=== PATIENT | male | born 1940 | race Caucasian/White ===

== ENCOUNTER → 2017-07-18 10:25 | Outpatient (CLI) | payer MEDICARE, OTHER, SELFPAY ==
--- NOTE | 2017-07-18 10:44 | XR_ITS ---
XR chest 2V HISTORY: ITS.REASON: COUGH, SOB ORDERING PHYSICIAN: Nela Vidales PATIENT AGE: 76 years COMPARISON: None available FINDINGS: There is borderline cardiomegaly without failure.. The lungs are clear without infiltrates, suspicious nodules, or pleural effusions. There is mild wedging of L1. This is slightly increased compared to the previous lumbar spine film of 03/03/2016. IMPRESSION: 1. Borderline cardiomegaly, no acute finding in the chest. 2. Mild wedging of L1 with loss of height anteriorly of approximately 40%
[2017-07-18 10:56] LABS: Basophils % 0.2 % (0.1-2.0); Eosinophils % 0.5 % (0.1-12.0); Hematocrit 40.5 % (42.0-52.0); Hemoglobin 13.6 g/dL (14.1-18.0); Lymphocytes # 0.7 K/mm3 (0.7-4.5); Lymphocytes % 10.8 K/mm3 (10-50); Mean Corpuscular HGB Conc 33.6 g/dL (31.8-35.4); Mean Corpuscular Hemoglobin 32.2 pg (27.0-31.2); Mean Platelet Volume 8.8 fl (7.4-10.4); Monocytes # 0.7 K/mm3 (0.1-1.0); Monocytes % 10.1 % (1.7-9.3); Neutrophils # 5.3 K/mm3 (1.8-7.8); Neutrophils % 78.3 % (37.0-80.0); Platelet Count 160 K/mm3 (142-424); Red Blood Count 4.22 M/mm3 (4.60-6.20); Red Cell Distribution Width 13.2 % (11.5-17.5); White Blood Count 6.7 K/mm3 (4.8-10.8)
[2017-07-18 12:34] LABS: Anion Gap 15.1 mEq/L (5-15); Blood Urea Nitrogen 18 mg/dL (7-18); Carbon Dioxide 23 mmol/L (21.0-32.0); Chloride 99 mmol/L (98-107); Creatinine,Serum 1.16 mg/dL (0.70-1.30); Estimated Glomerular Filt Rate 61 ml/min (>60); GFR (African American) 74 ML/MIN (>60); Glucose 98 mg/dL (74-106); Potassium 4.1 mmoL/L (3.5-5.1); Sodium 133 mmol/L (136-145)
== END ==
PROVIDERS: PCP Nurse Practitioner Family; Visit Provider Nurse Practitioner Family
DX: R05 Cough (principal); R06.02 Shortness of breath
CPT/HCPCS: 36415; 71046; 80048; 85025

== ENCOUNTER 2018-01-24 12:42 | Inpatient (IN) ==
[2018-01-24 13:12] LABS: Basophils % 0.2 % (0.1-2.0); Eosinophils % 0.5 % (0.1-12.0); Hematocrit 43.9 % (42.0-52.0); Hemoglobin 14.2 g/dL (14.1-18.0); Lymphocytes # 1.1 K/mm3 (0.7-4.5); Lymphocytes % 16.4 K/mm3 (10-50); Mean Corpuscular HGB Conc 32.4 g/dL (31.8-35.4); Mean Corpuscular Hemoglobin 31.2 pg (27.0-31.2); Mean Corpuscular Volume 96.3 fl (80-94); Monocytes # 0.6 K/mm3 (0.1-1.0); Monocytes % 8.6 % (1.7-9.3); Neutrophils # 5.1 K/mm3 (1.8-7.8); Neutrophils % 74.3 % (37.0-80.0); Platelet Count 225 K/mm3 (142-424); Red Blood Count 4.56 M/mm3 (4.60-6.20); Red Cell Distribution Width 13.1 % (11.5-17.5); White Blood Count 6.9 K/mm3 (4.8-10.8)
[2018-01-24 13:15] LABS: Calcium 9.5 mg/dL (8.5-10.1)
--- NOTE | 2018-01-24 15:37 | Consult Report ---
History of Present Illness Consult date: 01/24/18 Requesting physician: Lowell Dyer Chief complaint: cold left leg, pain in left leg Additional Medical History:: 1. a.fib A. On Xarelto therapy 2. Insufficient database of medical history. History of present illness: 77 yo WM seen in Dr. Dyer's office with 24 hr history of left leg pain and cold left leg. Pt sent urgently to the cardiac laboratory specialist for angiogram and possible intervention. History of A. fib for which he has been on Xarelto and bystolic. Denies any chest pains. [facility] History Medical History: Reports:: Atrial Fibrillation Denies:: Diabetes Mellitus Type 1, Diabetes Mellitus Type 2, Seizures - *Social History Alcohol Intake: never Occupational Status: retired Housing: house Household Members: spouse - Psychiatric History Expresses thoughts of harming self/others: None Suicide Plan Description: No Plan Meds Home Medications Medication Instructions Recorded Confirmed Type Nebivolol HCl [Bystolic] 5 mg PO DAILY 01/24/18 01/24/18 History Rivaroxaban [Xarelto] 20 mg PO DAILY 01/24/18 01/24/18 History Allergies Allergy/AdvReac Type Severity Reaction Status Date / Time No Known Allergies Allergy Verified 01/24/18 12:42 Review of Systems - *Cardiovascular Denies chest pain - *Respiratory Denies shortness of breath - *Gastrointestinal Denies abdominal pain Exam Vital signs and Labs for Last 24 Hours: Pulse BP Pulse Ox 60 133/81 92 L 01/24/18 13:16 01/24/18 13:16 01/24/18 13:16 Laboratory Results - last 24 hr 01/24/18 13:00: WBC 6.9, RBC 4.56 L, Hgb 14.2, Hct 43.9, MCV 96.3 H, MCH 31.2, MCHC 32.4, RDW 13.1, Plt Count 225, MPV 7.0 L, Neut % (Auto) 74.3, Lymph % (Auto ) 16.4, [place] % (Auto) 8.6, Eos % (Auto) 0.5, Baso % (Auto) 0.2, Neut # (Auto) 5.1, Lymph # (Auto) 1.1, [place] # (Auto) 0.6, Eos # (Auto) 0.0, Baso # (Auto) 0.0 01/24/18 13:00: Sodium 141, Potassium 4.0, Chloride 106, Carbon Dioxide 26, Anion Gap 13.0, BUN 10, Creatinine 0.95, Estimated Creat Clear 64, Estimated GFR 77, Est GFR ( Amer) 93, Glucose 110 H, Calcium 9.5 I & O for Last 24 hours: Intake & Output 01/22/18 01/23/18 01/24/18 01/25/18 11:59 11:59 11:59 11:59 Weight 189 lb - *Routine Neck Exam Absent: JVD - *Routine Respiratory Exam Present: rhonchi - *Routine Cardiovascular Exam Present: irregularly irregular - *Routine Extremities Exam Present: extremity cold to touch. Absent: edema Assessment and Plan (1) Acute leg pain Current visit: Yes Status: Acute Category: Medical Code(s): M79.606 - Pain in leg, unspecified (2) PAD (peripheral artery disease) Current visit: Yes Status: Acute Category: Medical Code(s): I73.9 - Peripheral vascular disease, unspecified (3) Atrial fibrillation Current visit: Yes Status: Acute Category: Medical Code(s): I48.91 - Unspecified atrial fibrillation - Assessment and plan all Dx Assessment and Plan for all problems:: 1. Pt to have urgent lower extremity angiogram with possible intervention. 2. Further recommendations to follow.
[2018-01-24 18:02] LABS: INR 1.36 (0.9-1.1); Prothrombin Time 13.9 seconds (9.4-11.8)
[2018-01-24 18:10] LABS: Activated Partial Thrombo Time 61.4 seconds (23.6-34.0)
[2018-01-24 20:07] LABS: Microscopic, Urine URINE MICROSCOPIC (MICROSCOPIC)
[2018-01-24 20:10] LABS: Appearance,Urine CLEAR (Clear); Bilirubin,Urine Negative (Negative); Blood, Urine 2+ (Negative); Color,Urine YELLOW (Yellow); Glucose,Urine (UA) Negative (Negative); Ketones,Urine Negative (Negative); Leukocyte Esterase,Urine Negative (Negative); PH,Urine 5.5 (5.0-8.5); Protein,Urine Negative (Negative); Urobilinogen,Urine 0.2 EU/dl (0.2)
[2018-01-24 20:35] LABS: Bacteria,Urine Trace /lpf; Mucus,Urine 1+ /lpf; Squamous Epithelial Cell,Urine Occasional #/hpf (0-5)
[2018-01-25 06:05] LABS: Basophils % 0.3 % (0.1-2.0); Eosinophils % 0.2 % (0.1-12.0); Hematocrit 29.1 % (42.0-52.0); Lymphocytes # 1.4 K/mm3 (0.7-4.5); Lymphocytes % 17.4 K/mm3 (10-50); Mean Corpuscular HGB Conc 32.7 g/dL (31.8-35.4); Mean Corpuscular Hemoglobin 31.9 pg (27.0-31.2); Mean Corpuscular Volume 97.7 fl (80-94); Mean Platelet Volume 7.4 fl (7.4-10.4); Monocytes # 0.8 K/mm3 (0.1-1.0); Neutrophils # 5.6 K/mm3 (1.8-7.8); Neutrophils % 72.1 % (37.0-80.0); Platelet Count 215 K/mm3 (142-424); Red Blood Count 2.98 M/mm3 (4.60-6.20); Red Cell Distribution Width 13.3 % (11.5-17.5); White Blood Count 7.8 K/mm3 (4.8-10.8)
[2018-01-25 06:11] LABS: INR 1.16 (0.9-1.1); Prothrombin Time 11.9 seconds (9.4-11.8)
[2018-01-25 06:17] LABS: Anion Gap 10.9 mEq/L (5-15); Hemoglobin 9.5 g/dL (14.1-18.0); Potassium 3.9 mmoL/L (3.5-5.1)
[2018-01-25 06:26] LABS: Calcium 8.2 mg/dL (8.5-10.1)
--- NOTE | 2018-01-25 08:03 | Pharmacy Consult Notes ---
[facility] Pharmacy VTE Monitoring - Patient Demographics Admission date: 01/24/18 Report Date: 01/25/18 Time: 08:02 Allergies/Adverse Reactions: Patient Allergies No Known Allergies Allergy (Verified 01/24/18 12:42) Height: 1.78 m Weight: 84.453 kg Patient Problems: Current Active Problems PAD (peripheral artery disease) (Acute) Atrial fibrillation (Acute) Acute leg pain (Acute) - VTE Risk Labs: VTE Related Lab Results Hgb 9.5 g/dL (14.1-18.0) L D 01/25/18 05:10 Hct 29.1 % (42.0-52.0) L 01/25/18 05:10 Plt Count 215 K/mm3 (142-424) 01/25/18 05:10 PT 11.9 seconds (9.4-11.8) H 01/25/18 05:10 INR 1.16 (0.9-1.1) H 01/25/18 05:10 APTT 61.4 seconds (23.6-34.0) H* 01/24/18 17:40 BUN 16 mg/dL (7-18) D 01/25/18 05:10 Creatinine 1.03 mg/dL (0.70-1.30) 01/25/18 05:10 Estimated Creat Clear 71 mL/min (0-300) 01/25/18 05:10 Was VTE Risk Assessment Performed: Yes VTE Score: 2 VTE Risk Level: Low Risk Clinical Trial Participant: No - Prophylaxis VTE Prophylaxis Ordered?: Yes Types of VTE Prophylaxis: TEDS Knee High
--- NOTE | 2018-01-25 08:13 | Progress Note ---
Subjective Date: 01/25/18 Time: 08:11 Principal diagnosis: PAD with thrombosis Interval history: 77-year-old white male in bed in no acute distress. States left leg feels much better. Patient is anxious to get his Chirinos catheter removed. He now relates that he stopped taking his Xarelto about 2 weeks ago when he was on a trip to [place] and did not restart it. States he spends multiple hours a day in front of the computer. Denies any chest pain, pressure or tightness or any cardiac history. He was diagnosed with atrial fibrillation several years ago at the time of evaluation for broken back. Xarelto was held last evening due to bleeding from his right femoral incision/ cath insertion. Pressure dressing in place. Patient was given a loading dose of Plavix last evening and Integrilin overnight. Exam Vital signs and Labs for Last 24 Hours: Temp Pulse Resp BP Pulse Ox 98.0 F 70 18 94/63 96 01/25/18 07:40 01/25/18 07:40 01/25/18 07:40 01/25/18 07:40 01/25/18 07:40 Laboratory Results - last 24 hr 01/24/18 13:00: WBC 6.9, RBC 4.56 L, Hgb 14.2, Hct 43.9, MCV 96.3 H, MCH 31.2, MCHC 32.4, RDW 13.1, Plt Count 225, MPV 7.0 L, Neut % (Auto) 74.3, Lymph % (Auto ) 16.4, [place] % (Auto) 8.6, Eos % (Auto) 0.5, Baso % (Auto) 0.2, Neut # (Auto) 5.1, Lymph # (Auto) 1.1, [place] # (Auto) 0.6, Eos # (Auto) 0.0, Baso # (Auto) 0.0 01/24/18 13:00: Sodium 141, Potassium 4.0, Chloride 106, Carbon Dioxide 26, Anion Gap 13.0, BUN 10, Creatinine 0.95, Estimated Creat Clear 64, Estimated GFR 77, Est GFR ( Amer) 93, Glucose 110 H, Calcium 9.5 01/24/18 13:48: Activated Clotting Time 323 H* 01/24/18 15:05: Activated Clotting Time > 400 H* D 01/24/18 16:45: Urine Color Yellow, Urine Appearance Clear, Urine pH 5.5, Ur Specific [place] 1.010, Urine Protein Negative, Urine Glucose (UA) Negative, Urine Ketones Negative, Urine Blood 2+, Urine Nitrate Negative, Urine Bilirubin Negative, Urine Urobilinogen 0.2, Ur Leukocyte Esterase Negative, Urine RBC None , Urine WBC None, Ur Squamous Epith Cells Occasional, Urine Bacteria Trace, Urine Mucus 1+ 01/24/18 17:40: PT 13.9 H, INR 1.36 H, APTT 61.4 H* 01/25/18 05:10: WBC 7.8, RBC 2.98 L D, Hgb 9.5 L D, Hct 29.1 L, MCV 97.7 H, MCH 31.9 H, MCHC 32.7, RDW 13.3, Plt Count 215, MPV 7.4, Neut % (Auto) 72.1, Lymph % (Auto) 17.4, [place] % (Auto) 10.0 H, Eos % (Auto) 0.2, Baso % (Auto) 0.3, Neut # (Auto) 5.6, Lymph # (Auto) 1.4, [place] # (Auto) 0.8, Eos # (Auto) 0.0, Baso # ( Auto) 0.0 01/25/18 05:10: Sodium 140, Potassium 3.9, Chloride 107, Carbon Dioxide 26, Anion Gap 10.9, BUN 16 D, Creatinine 1.03, Estimated Creat Clear 71, Estimated GFR 70, Est GFR ( Amer) 85, Glucose 117 H, Calcium 8.2 L D 01/25/18 05:10: PT 11.9 H, INR 1.16 H I & O for Last 24 hours: Intake & Output 01/22/18 01/23/18 01/24/18 01/25/18 11:59 11:59 11:59 11:59 Intake Total 1470 / 1470 Output Total 1150 / 1150 Balance 320 / 320 Weight 186 lb 3 oz - *Routine Respiratory Exam Present: CTA bilaterally - *Routine Cardiovascular Exam Present: irregularly irregular - *Routine Extremities Exam Absent: edema Comments: Left leg is warm down to the ankle with no appreciable pulses in the dorsalis pedis or posterior tibial palpation. Progress Note: A&P (1) Acute leg pain Status: Acute Current Visit: Yes (2) PAD (peripheral artery disease) Status: Acute Current Visit: Yes (3) Atrial fibrillation Status: Acute Current Visit: Yes Assessment and Plan for All Diagnoses:: 1. Integrilin drip discontinued this morning. 2. Continue Nitropaste to the left foot and nitro drip. 3. Continue Plavix and will start Xarelto today. 4. Ambulate.
--- NOTE | 2018-01-25 09:37 | History & Physical Report ---
*Admission Date: 01/24/18 *Chief complaint: left leg pain *History of present illness: 77-year-old white male with history of atrial fibrillation and hypertension who came to the office on the day of admission with a 6 hour history of leg pain and significant discomfort without swelling. His reports that he woke up at 1 AM feeling that his leg was tingling, but went back to sleep but when he woke this morning he had significant leg pain and felt like his muscles were hurting. He is able to walk, but came to the office because of his pain. [facility] History I have reviewed the patient's past medical history: Yes Medical History: Reports:: Atrial Fibrillation Denies:: Diabetes Mellitus Type 1, Diabetes Mellitus Type 2, Seizures - *Social History Alcohol Intake: never Occupational Status: retired Housing: house Household Members: spouse - Psychiatric History Expresses thoughts of harming self/others: None Suicide Plan Description: No Plan *Family Hx:: No significant family history Review of Systems - Review of Systems Review of systems:: pertinent systems reviewed and negative unless documented below Meds Home Medications Medication Instructions Recorded Confirmed Type Nebivolol HCl [Bystolic] 5 mg PO DAILY 01/24/18 01/24/18 History Rivaroxaban [Xarelto] 20 mg PO DAILY 01/24/18 01/24/18 History Allergies Allergy/AdvReac Type Severity Reaction Status Date / Time No Known Allergies Allergy Verified 01/24/18 12:42 Exam Vital signs and Labs for Last 24 Hours: Temp Pulse Resp BP Pulse Ox 97.7 F 84 18 124/54 97 01/25/18 08:00 01/25/18 08:36 01/25/18 08:36 01/25/18 08:36 01/25/18 08:36 Laboratory Results - last 24 hr 01/24/18 13:00: WBC 6.9, RBC 4.56 L, Hgb 14.2, Hct 43.9, MCV 96.3 H, MCH 31.2, MCHC 32.4, RDW 13.1, Plt Count 225, MPV 7.0 L, Neut % (Auto) 74.3, Lymph % (Auto ) 16.4, [place] % (Auto) 8.6, Eos % (Auto) 0.5, Baso % (Auto) 0.2, Neut # (Auto) 5.1, Lymph # (Auto) 1.1, [place] # (Auto) 0.6, Eos # (Auto) 0.0, Baso # (Auto) 0.0 01/24/18 13:00: Sodium 141, Potassium 4.0, Chloride 106, Carbon Dioxide 26, Anion Gap 13.0, BUN 10, Creatinine 0.95, Estimated Creat Clear 64, Estimated GFR 77, Est GFR ( Amer) 93, Glucose 110 H, Calcium 9.5 01/24/18 13:48: Activated Clotting Time 323 H* 01/24/18 15:05: Activated Clotting Time > 400 H* D 01/24/18 16:45: Urine Color Yellow, Urine Appearance Clear, Urine pH 5.5, Ur Specific [place] 1.010, Urine Protein Negative, Urine Glucose (UA) Negative, Urine Ketones Negative, Urine Blood 2+, Urine Nitrate Negative, Urine Bilirubin Negative, Urine Urobilinogen 0.2, Ur Leukocyte Esterase Negative, Urine RBC None , Urine WBC None, Ur Squamous Epith Cells Occasional, Urine Bacteria Trace, Urine Mucus 1+ 01/24/18 17:40: PT 13.9 H, INR 1.36 H, APTT 61.4 H* 01/25/18 05:10: WBC 7.8, RBC 2.98 L D, Hgb 9.5 L D, Hct 29.1 L, MCV 97.7 H, MCH 31.9 H, MCHC 32.7, RDW 13.3, Plt Count 215, MPV 7.4, Neut % (Auto) 72.1, Lymph % (Auto) 17.4, [place] % (Auto) 10.0 H, Eos % (Auto) 0.2, Baso % (Auto) 0.3, Neut # (Auto) 5.6, Lymph # (Auto) 1.4, [place] # (Auto) 0.8, Eos # (Auto) 0.0, Baso # ( Auto) 0.0 01/25/18 05:10: Sodium 140, Potassium 3.9, Chloride 107, Carbon Dioxide 26, Anion Gap 10.9, BUN 16 D, Creatinine 1.03, Estimated Creat Clear 71, Estimated GFR 70, Est GFR ( Amer) 85, Glucose 117 H, Calcium 8.2 L D 01/25/18 05:10: PT 11.9 H, INR 1.16 H I & O for Last 24 hours: Intake & Output 01/22/18 01/23/18 01/24/18 01/25/18 11:59 11:59 11:59 11:59 Intake Total 1470 / 1470 Output Total 1150 / 1150 Balance 320 / 320 Weight 186 lb 3 oz Narrative: Patient is pleasant, talkative, oriented 3. Blood pressure and pulse rate is normal but pulse rate is irregularly irregular as previously noted. Lungs are clear. Abdomen soft. Patient has no cranial nerve deficits. Patient noted to have significant pallor, and absent pulse in the left dorsalis pedis and posterior tib area, area of pallor and cold sensation to touch extending up to the knee. H&P: Result - Labs Labs: Short CBC 01/24/18 01/25/18 Range/Units 13:00 05:10 WBC 6.9 7.8 (4.8-10.8) K/mm3 Hgb 14.2 9.5 L D (14.1-18.0) g/dL Hct 43.9 29.1 L (42.0-52.0) % Plt Count 225 215 (142-424) K/mm3 BMP 01/24/18 01/25/18 13:00 05:10 Sodium 141 140 Potassium 4.0 3.9 Chloride 106 107 Carbon Dioxide 26 26 BUN 10 16 D Creatinine 0.95 1.03 Glucose 110 H 117 H Calcium 9.5 8.2 L D Urine 01/24/18 Range/Units 16:45 Urine Color Yellow (Yellow) Urine Appearance Clear (Clear) Urine pH 5.5 (5.0-8.5) Ur Specific [place] 1.010 (1.005-1.030) Urine Protein Negative (Negative) Urine Glucose (UA) Negative (Negative) Assessment and Plan (1) Acute leg pain Current visit: Yes Status: Acute Category: Medical Code(s): M79.606 - Pain in leg, unspecified (2) PAD (peripheral artery disease) Current visit: Yes Status: Acute Category: Medical Code(s): I73.9 - Peripheral vascular disease, unspecified (3) Atrial fibrillation Current visit: Yes Status: Acute Category: Medical Code(s): I48.91 - Unspecified atrial fibrillation - Assessment and plan all Dx Assessment and Plan for all problems:: On further questioning, patient had been off Xarelto for a week, patient urgently sent to catheter based intervention for probable distal arterial disease. Follow-up will be after cath procedure.
--- NOTE | 2018-01-25 14:07 | Cardiology Report ---
PROCEDURE: 2-D M-mode and color Doppler study INDICATIONS FOR THE TEST: Chest pain COPD Heart Murmur Tobacco Smoking Palpitations Fatigue Syncope Edema Hypertension Diabetes Mellitus Rheumatic Fever SOB ZACARIAS Obesity Hyperlipidemia Family History HD Additional History CHRONIC AF,PAD SMALL PERICARDIAL EFFUSION PATIENT INFORMATION HEIGHT:70 WEIGHT:189 GENDER: Male B/P:133/81 2-D/M-MODE INTERPRETATION: 2-D MEASUREMENTS OBSERVED VALUES IN CMS Right Ventricular Dimension (RVDd) 2.7 Interventricular Septum (Thickness)(IVsd) 1.2 Left Ventricular Internal Dimensions(LVIDd) 5.3 Left Ventricular Posterior Wall (Thickness)(LVPWd) 1.1 Aortic Root 3.4 Aortic Cusp Separation 1.3 Left Atrial Dimensions (LAD) 3.9 2D 1. Left atrium is mildly enlarged, left ventricle is normal size, there is mild concentric left ventricular hypertrophy, visually estimated ejection fraction 50%, there appears to be moderate hypokinesis involving the apex. 2. The right atrium is mildly enlarged, right ventricle is normal size and contractility. 3. The aortic valve is thickened and calcified leaflet continue to display mobility. 4. The mitral valve has dense mitral annular calcification, there is no mitral stenosis. 5. The tricuspid valve is grossly normal. 6. No significant pericardial effusion noted. DOPPLER INTERROGATION: 1. The maximum aortic out flow velocity recorded study is 2.4 m/s, resulting in a mean gradient across valve of 13 mmHg consistent with mild aortic stenosis, there is no significant aortic insufficiency present. 2. The mitral inflow velocity within normal range, there is no mitral stenosis. There is mild mitral regurgitation present. 3. There is mild tricuspid regurgitation noted, tricuspid and jet velocity insufficient for calculation of the right ventricular systolic pressure. CONCLUSION: 1. Biatrial enlargement, normal left ventricular size, mild concentric left ventricular hypertrophy, visually estimated ejection fraction 50% with no obvious regional wall motion abnormality, diastolic parameters are inconclusive. 2. Thickened and calcified aortic valve with mean gradient across valve of 15 mmHg represents mild aortic stenosis, there is no significant aortic insufficiency seen. 3. Mild mitral and tricuspid regurgitation 4. No significant pericardial effusion noted.
[2018-01-26 05:44] LABS: Basophils % 0.3 % (0.1-2.0); Eosinophils # 0.1 K/mm3 (0.0-0.4); Eosinophils % 2.1 % (0.1-12.0); Lymphocytes # 1.7 K/mm3 (0.7-4.5); Lymphocytes % 24.2 K/mm3 (10-50); Mean Corpuscular HGB Conc 32.7 g/dL (31.8-35.4); Mean Corpuscular Hemoglobin 31.8 pg (27.0-31.2); Mean Corpuscular Volume 97.2 fl (80-94); Mean Platelet Volume 8.4 fl (7.4-10.4); Monocytes # 0.7 K/mm3 (0.1-1.0); Monocytes % 9.8 % (1.7-9.3); Neutrophils # 4.4 K/mm3 (1.8-7.8); Neutrophils % 63.6 % (37.0-80.0); Platelet Count 179 K/mm3 (142-424); Red Blood Count 2.36 M/mm3 (4.60-6.20); Red Cell Distribution Width 13.1 % (11.5-17.5); White Blood Count 6.9 K/mm3 (4.8-10.8)
[2018-01-26 05:48] LABS: Hemoglobin 7.5 g/dL (14.1-18.0)
[2018-01-26 05:58] LABS: Albumin Level 2.7 gm/dL (3.4-5.0); Anion Gap 12.8 mEq/L (5-15); Bilirubin,Total 0.8 mg/dL (0.2-1.0); Calcium 7.7 mg/dL (8.5-10.1); Globulin 2.7 gm/dl (1.3-3.2); Potassium 3.8 mmoL/L (3.5-5.1); Total Protein,Serum 5.4 gm/dL (6.4-8.2)
--- NOTE | 2018-01-26 08:42 | Progress Note ---
Subjective Date: 01/26/18 Time: 08:38 Principal diagnosis: PAD with thrombosis Interval history: 77-year-old white male in bed in no cute distress. Some lightheadedness and dizziness with position changes. Hemoglobin noted to be 7.5 this a.m. with orders for transfusion already placed. Patient denies any abdominal pain. He still has hematoma around the right femoral insertion site that is unchanged compared to yesterday. Left foot appears warm still with decreased pulses. Patient denies any blood in his bowels or urine. Exam Vital signs and Labs for Last 24 Hours: Temp Pulse Resp BP Pulse Ox 97.9 F 69 16 124/62 100 01/26/18 05:00 01/26/18 06:00 01/26/18 06:00 01/26/18 06:00 01/26/18 06:00 Laboratory Results - last 24 hr 01/26/18 05:25: WBC 6.9, RBC 2.36 L, Hgb 7.5 L*, Hct 23.0 L*, MCV 97.2 H, MCH 31.8 H, MCHC 32.7, RDW 13.1, Plt Count 179, MPV 8.4, Neut % (Auto) 63.6, Lymph % (Auto) 24.2, [place] % (Auto) 9.8 H, Eos % (Auto) 2.1, Baso % (Auto) 0.3, Neut # (Auto) 4.4, Lymph # (Auto) 1.7, [place] # (Auto) 0.7, Eos # (Auto) 0.1, Baso # ( Auto) 0.0 01/26/18 05:25: Sodium 145, Potassium 3.8, Chloride 110 H, Carbon Dioxide 26, Anion Gap 12.8, BUN 14, Creatinine 0.97, Estimated Creat Clear 75, Estimated GFR 75, Est GFR ( Amer) 91, Glucose 99, Calcium 7.7 L, Total Bilirubin 0.8, AST 59 H, ALT 23, Alkaline Phosphatase 52, Total Protein 5.4 L, Albumin 2.7 L, Globulin 2.7, Albumin/Globulin Ratio 1.0 L 01/26/18 07:05: Blood Type B Positive, Crossmatch (AHG) See Detail I & O for Last 24 hours: Intake & Output 01/23/18 01/24/18 01/25/1801/26/18 11:59 11:59 11:59 11:59 Intake Total 1590 / 1590 2641.6 / 2641.6 Output Total 1250 / 1250 700 / 700 Balance 340 / 340 1941.6 / 1941.6 Weight 186 lb 3 oz 192 lb 2 oz - *Routine Neck Exam Absent: JVD, carotid bruit - *Routine Respiratory Exam Present: decreased breath sounds - *Routine Cardiovascular Exam Present: irregularly irregular - *Routine Extremities Exam Present: edema Progress Note: A&P (1) Acute leg pain Status: Acute Current Visit: Yes (2) PAD (peripheral artery disease) Status: Acute Current Visit: Yes (3) Atrial fibrillation Status: Acute Current Visit: Yes Assessment and Plan for All Diagnoses:: Patient is off of nitroglycerin drip and Integrilin. Left leg is warm but still with decreased peripheral pulses. Continue Plavix and Xarelto therapy. Transfusion has been ordered. CT of the abdomen considered for evaluation of atheromatous plaque of the aorta and to evaluate hematoma of the right groin due to decreased hemoglobin.
--- NOTE | 2018-01-26 13:44 | Progress Note ---
Internal Medicine - PN: Subj *Date: 01/26/18 *Time: 13:42 Interval history: Patient examined this morning when he was being taken to CT scan. Has no complaints. No chest pain. No leg pain. Exam Vital signs and Labs for Last 24 Hours: Temp Pulse Resp BP Pulse Ox 97.0 F L 62 20 111/56 95 01/26/18 11:50 01/26/18 12:00 01/26/18 11:50 01/26/18 11:50 01/26/18 11:50 Laboratory Results - last 24 hr 01/26/18 05:25: WBC 6.9, RBC 2.36 L, Hgb 7.5 L*, Hct 23.0 L*, MCV 97.2 H, MCH 31.8 H, MCHC 32.7, RDW 13.1, Plt Count 179, MPV 8.4, Neut % (Auto) 63.6, Lymph % (Auto) 24.2, [place] % (Auto) 9.8 H, Eos % (Auto) 2.1, Baso % (Auto) 0.3, Neut # (Auto) 4.4, Lymph # (Auto) 1.7, [place] # (Auto) 0.7, Eos # (Auto) 0.1, Baso # ( Auto) 0.0 01/26/18 05:25: Sodium 145, Potassium 3.8, Chloride 110 H, Carbon Dioxide 26, Anion Gap 12.8, BUN 14, Creatinine 0.97, Estimated Creat Clear 75, Estimated GFR 75, Est GFR ( Amer) 91, Glucose 99, Calcium 7.7 L, Total Bilirubin 0.8, AST 59 H, ALT 23, Alkaline Phosphatase 52, Total Protein 5.4 L, Albumin 2.7 L, Globulin 2.7, Albumin/Globulin Ratio 1.0 L 01/26/18 07:05: Blood Type B Positive, Antibody Screen Negative, Crossmatch (AHG ) See Detail 01/26/18 08:50: Blood Type Confirm B Positive I & O for Last 24 hours: Intake & Output 01/24/18 01/25/18 01/26/18 01/27/18 11:59 11:59 11:59 11:59 Intake Total 1590 / 1590 2841.6 / 2841.6 350 / 350 Output Total 1250 / 1250 700 / 700 Balance 340 / 340 2141.6 / 2141.6 350 / 350 Weight 186 lb 3 oz 192 lb 2 oz Narrative: Patient is somewhat pale but otherwise in good spirits. Lungs are clear, heart rate irregular. Left leg is warm and well-perfused. Cath site on the right groin looks good. Assessment and Plan (1) Acute leg pain Current visit: Yes Status: Acute Category: Medical Code(s): M79.606 - Pain in leg, unspecified (2) PAD (peripheral artery disease) Current visit: Yes Status: Acute Category: Medical Code(s): I73.9 - Peripheral vascular disease, unspecified (3) Atrial fibrillation Current visit: Yes Status: Acute Category: Medical Code(s): I48.91 - Unspecified atrial fibrillation (4) Thrombosis of left femoral artery Current visit: Yes Status: Acute Category: Medical Code(s): I74.3 - Embolism and thrombosis of arteries of the lower extremities Clinically problem is much better. Radiographic films reviewed personally with training intern. Transfuse as noted given procedure related/chronic blood loss. Check CT scan today to get a good look at the aorta and to evaluate for any retroperitoneal bleeding. Possible discharge tomorrow.
[2018-01-26 17:14] LABS: Hematocrit 27.5 % (42.0-52.0)
[2018-01-26 17:18] LABS: Hemoglobin 9.3 g/dL (14.1-18.0)
[2018-01-27 06:16] LABS: Basophils % 0.4 % (0.1-2.0); Eosinophils # 0.2 K/mm3 (0.0-0.4); Eosinophils % 3.1 % (0.1-12.0); Hematocrit 28.7 % (42.0-52.0); Hemoglobin 9.4 g/dL (14.1-18.0); Lymphocytes # 1.5 K/mm3 (0.7-4.5); Lymphocytes % 23.8 K/mm3 (10-50); Mean Corpuscular HGB Conc 32.6 g/dL (31.8-35.4); Mean Corpuscular Hemoglobin 31.6 pg (27.0-31.2); Mean Corpuscular Volume 97.1 fl (80-94); Mean Platelet Volume 7.4 fl (7.4-10.4); Monocytes # 0.6 K/mm3 (0.1-1.0); Monocytes % 9.6 % (1.7-9.3); Neutrophils # 3.8 K/mm3 (1.8-7.8); Neutrophils % 63.1 % (37.0-80.0); Platelet Count 155 K/mm3 (142-424); Red Blood Count 2.96 M/mm3 (4.60-6.20); Red Cell Distribution Width 14.1 % (11.5-17.5); White Blood Count 6.1 K/mm3 (4.8-10.8)
[2018-01-27 06:46] LABS: Anion Gap 11.7 mEq/L (5-15); Calcium 7.9 mg/dL (8.5-10.1); Potassium 3.7 mmoL/L (3.5-5.1)
--- NOTE | 2018-01-27 07:41 | Discharge Summary ---
General - General Admission date:: 01/24/18 Discharge date: 01/27/18 HPI HPI: 77-year-old white male with history of atrial fibrillation and hypertension who came to the office on the day of admission with a 6 hour history of leg pain and significant discomfort without swelling. His reports that he woke up at 1 AM feeling that his leg was tingling, but went back to sleep but when he woke this morning he had significant leg pain and felt like his muscles were hurting. He is able to walk, but came to the office because of his pain. Hospital Course Hospital Course: Mr. nunez presented with pallor, pain, pulselessness and left lower extremity after stopping his anticoagulation therapy for 2 weeks with a trip to [place]. Found to have critical angiogram. Cardiology consulted for emergent intervention. Stents were placed in the left common femoral artery. Flow restored to left lower extremity. Initially treated with IV antiplatelet therapy with transition to Plavix and continuation of Xarelto. Patient responded well to intervention. Has maintained stable blood flow and perfusion to lower extremities. Cath site in right inguinal region stable with good hemostasis. Patient meeting criteria for discharge home. Discharge with close follow-up with cardiology and primary care Objective Vital signs: Temp Pulse Resp BP Pulse Ox 98.0 F 66 18 133/67 92 L 01/27/18 04:00 01/27/18 04:00 01/27/18 04:00 01/27/18 04:00 01/27/18 04:00 - *Routine HEENT Exam Head: Present: normocephalic, atraumatic Eye: Present: EOMI, PERRL ENT: Present: mucous membranes moist - *Routine Neck Exam Present: supple, full ROM. Absent: JVD, carotid bruit - *Routine Respiratory Exam Present: CTA bilaterally. Absent: prolonged expiratory phase, rales, stridor, wheezes, crackles - *Routine Cardiovascular Exam Present: Normal S1, Normal S2, irregularly irregular. Absent: murmur, gallop, rubs - *Routine Abdominal Exam Present: soft, normoactive bowel sounds. Absent: tenderness - *Routine Rectal Exam Patient deferred: visual exam - *Routine Exam Patient deferred: penile exam Comments: Ecchymoses in right inguinal region at the insertion site for cath procedure. No bleeding. Stable pulses, no thrill. - *Routine Extremities Exam Present: normal capillary refill. Absent: cyanosis, clubbing, edema, calf tenderness Comments: Pulses weak in feet with palpable dorsalis pedis bilaterally, nonpalpable posterior tibialis, feet warm with cap refill less than 3 seconds - *Routine Skin Exam Present: intact, dry. Absent: cyanosis, erythema - *Routine Neurological Exam Present: alert, oriented X3, CN II-XII intact Results Labs on day of discharge: Labs from last 24 hours 01/27/18 01/27/18 01/26/18 05:40 05:40 17:00 WBC 6.1 RBC 2.96 L D Hgb 9.4 L 9.3 L D Hct 28.7 L 27.5 L MCV 97.1 H MCH 31.6 H MCHC 32.6 RDW 14.1 Plt Count 155 MPV 7.4 Neut % (Auto) 63.1 Lymph % (Auto) 23.8 [place] % (Auto) 9.6 H Eos % (Auto) 3.1 Baso % (Auto) 0.4 Neut # (Auto) 3.8 Lymph # (Auto) 1.5 [place] # (Auto) 0.6 Eos # (Auto) 0.2 Baso # (Auto) 0.0 Sodium 145 Potassium 3.7 Chloride 110 H Carbon Dioxide 27 Anion Gap 11.7 BUN 9 D Creatinine 0.80 Estimated Creat Clear 76 Estimated GFR 93 Est GFR ( Amer) 113 D Glucose 84 Calcium 7.9 L Blood Type Blood Type Confirm Antibody Screen Crossmatch ([facility]) 01/26/18 01/26/18 08:50 07:05 WBC RBC Hgb Hct MCV MCH MCHC RDW Plt Count MPV Neut % (Auto) Lymph % (Auto) [place] % (Auto) Eos % (Auto) Baso % (Auto) Neut # (Auto) Lymph # (Auto) [place] # (Auto) Eos # (Auto) Baso # (Auto) Sodium Potassium Chloride Carbon Dioxide Anion Gap BUN Creatinine Estimated Creat Clear Estimated GFR Est GFR ( Amer) Glucose Calcium Blood Type B Positive Blood Type Confirm B Positive Antibody Screen Negative Crossmatch ([facility]) See Detail DS: Diagnosis - Discharge Diagnosis (1) Acute leg pain Status: Acute (2) PAD (peripheral artery disease) Status: Acute (3) Atrial fibrillation Status: Acute (4) Thrombosis of left femoral artery Status: Acute Discharge Plan - Patient Discharge Instructions ACTIVITY: Continue current activity, Ambulate as tolerated DIET: continue same diet Additional Instructions: ACTIVITY: Continue current activity, Ambulate as tolerated DIET: continue same diet Patient Instructions: DI for Deep Vein Thrombosis, DI for Cardiac Catheterization, DI for Atrial Fibrillation, DI for Peripheral Vascular ( Arterial) Disease, Surgical Site Infection - Follow up Plan Follow up with: Lowell Dyer MD [Staff Physician] - 2 weeks Jozef Medina MD [Staff Physician] - 1 week Disposition: Home, Self-Care Prescriptions/Medication Reconciliation: New Clopidogrel Bisulfate [Plavix 75mg Tab] 75 mg PO DAILY #30 tab Nitroglycerin [Nitroglycerin 1 Inch Oint Udp] 2 gm TD Q6H package Continue Nebivolol HCl [Bystolic] 5 mg PO DAILY #30 tab Rivaroxaban [Xarelto] 20 mg PO DAILY #30 tab
== END 2018-01-27 10:27 | disposition home or self-care (01) ==
LOC: CATHLAB 12:42 → 2ND 16:16
PROVIDERS: ADMIT Internal Medicine; ATTEND Internal Medicine Adolescent Medicine

== ENCOUNTER 2018-01-28 03:12 | Observation (INO) ==
--- NOTE | 2018-01-28 03:43 | Emergency Department Note ---
ED Disposition Clinical Impression: Melena, PAD (peripheral artery disease), Thrombosis of left femoral artery Atrial fibrillation Qualifiers: Atrial fibrillation type: chronic Qualified Code(s): I48.2 - Chronic atrial fibrillation Disposition: Admitted As Inpatient Condition on Discharge: Serious Instructions: DI for Gastrointestinal Bleeding Referrals: Nela Vidales APRN [Primary Care Provider] - - Critical Care Critical Care Time: No Attestation: On 01/28/18, the high probability of a clinically significant, sudden or life threatening deterioration of the following system(s) required my full and direct attention, intervention and personal management. The time I documented below is in addition to time spent performing reported procedures but includes the following listed in this critical care notation. Medical Decision Making - Medical Records Medical records reviewed: Yes: I reviewed the patient's medical records. - Ethan Inquiry Pt receiving controlled substance: No Vital Signs: 01/28/18 03:14 Temperature 98 F Temperature Source Oral Pulse Rate [Right] 72 Respiratory Rate 20 Blood Pressure [Right Arm] 181/75 Blood Pressure Mean [Right Arm] 110 Blood Pressure Source [Right Arm] Automatic Cuff 02 Sat by Pulse Oximetry 92 L - Lab Data Lab results reviewed: Yes: I reviewed the patient's lab results. Lab Results 01/28/18 03:37: Stool Occult Blood Positive A 01/28/18 03:37: WBC 8.2 D, RBC 3.11 L, Hgb 9.8 L, Hct 30.1 L, MCV 96.8 H, MCH 31.7 H, MCHC 32.7, RDW 14.1, Plt Count 205 D, MPV 7.2 L, Neut % (Auto) 74.9, Lymph % (Auto) 14.2, [place] % (Auto) 8.4, Eos % (Auto) 2.3, Baso % (Auto) 0.3, Neut # (Auto) 6.1, Lymph # (Auto) 1.2, [place] # (Auto) 0.7, Eos # (Auto) 0.2, Baso # (Auto) 0.0 01/28/18 03:37: Sodium 143, Potassium 3.8, Chloride 108 H, Carbon Dioxide 24, Anion Gap 14.8, BUN 9, Creatinine 0.92, Estimated Creat Clear 73, Estimated GFR 80, Est GFR ( Amer) 96, Glucose 102 D, Calcium 8.7 D, Total Bilirubin 1.5 H, AST 87 H D, ALT 32 D, Alkaline Phosphatase 69, Total Protein 6.7, Albumin 3.2 L, Globulin 3.5 H, Albumin/Globulin Ratio 0.9 L 01/28/18 03:37: PT 12.5 H, INR 1.22 H, APTT 29.2 Result diagrams: 01/28/18 03:37 01/28/18 03:37 - Physician Consults Physician Consulted: Dr Grant Time: 04:22 Reason -: Admission, Gastroenterolgy Eval/Care GI Bleed HPI - General Chief complaint: GI Bleed Stated complaint: Black Stool Time Seen by Provider: 01/28/18 03:42 Mode of Arrival: Ambulatory Limitations: No Limitations Description of Symptoms (Recalled from ER Triage Doc. by RN): Pt states he is having black tarry stools since yesterday, pt is currently on plavix. - History of Present Illness HPI Narrative: Pt states he is having black tarry stools since yesterday, pt is currently on plavix. He came in here Monday and had blood clots with decrease circulation in left lower extremity on Monday. He had stents placed. Was sent out on Plavix and to continue his Xarelto. He was just on long trip in [place] where he did not take his Xarelto. Was released on Monday. He had black stool small Monday morning and again Monday night. Then about an hour ago had black loose stool. He isn't on iron and did not take Pepto. complaint: melena Onset (ago): day(s) (1) Context: anticoagulant use Associated symptoms: denies other symptoms - Related Data Home Medications Medication Instructions Recorded Confirmed Clopidogrel Bisulfate [Plavix 75mg 75 mg PO DAILY 01/28/18 01/28/18 Tab] Previous Rx's Medication Instructions Recorded Nebivolol HCl [Bystolic] 5 mg PO DAILY #30 tab 01/27/18 Rivaroxaban [Xarelto] 20 mg PO DAILY #30 tab 01/27/18 Allergies Allergy/AdvReac Type Severity Reaction Status Date / Time No Known Allergies Allergy Verified 01/24/18 12:42 [facility] History I have reviewed the patient's past medical history: Yes Medical History: Reports:: Atrial Fibrillation Denies:: Diabetes Mellitus Type 1, Diabetes Mellitus Type 2, Seizures - Social History Educational Level: Completed High School Smoking Status: Former smoker Alcohol Intake: current Alcohol Intake Frequency:: holidays/special occasions only Occupational Status: retired Housing: house Household Members: spouse - Psychiatric History Expresses thoughts of harming self/others: None Suicide Plan Description: No Plan Family Hx:: No significant family history ROS Obtained: Yes All systems reviewed & no additional complaints Physical Exam - General General appearance: alert, in no apparent distress - Head Head exam: atraumatic, normocephalic - Eye Eye exam: Present: normal appearance, PERRL, EOMI - ENT ENT exam: Present: normal exam, normal oropharynx, mucous membranes moist - Neck Neck exam: Present: normal inspection, full ROM, trachea midline - Chest Chest inspection: Present: normal inspection, symmetric chest wall rise - Respiratory Respiratory exam: Present: normal lung sounds bilaterally - Cardiovascular Cardiovascular exam: Present: regular rate, normal rhythm - Abdominal Exam Abdominal exam: Present: soft, normal bowel sounds. Absent: distention, tenderness, guarding, rebound, rigidity - Extremities Exam Extremities exam: Present: normal inspection, full ROM - Back Exam Back exam: Present: normal inspection, full ROM - Neurological Exam Neurological exam: Present: alert, oriented X3 - Psychiatric Psychiatric exam: Present: normal affect, normal mood - Skin Skin exam: Present: warm, dry, intact - Lymphatic Lymphatic Findings: no adenopathy
[2018-01-28 03:51] LABS: Basophils % 0.3 % (0.1-2.0); Eosinophils # 0.2 K/mm3 (0.0-0.4); Eosinophils % 2.3 % (0.1-12.0); Hematocrit 30.1 % (42.0-52.0); Hemoglobin 9.8 g/dL (14.1-18.0); Lymphocytes # 1.2 K/mm3 (0.7-4.5); Lymphocytes % 14.2 K/mm3 (10-50); Mean Corpuscular HGB Conc 32.7 g/dL (31.8-35.4); Mean Corpuscular Hemoglobin 31.7 pg (27.0-31.2); Mean Corpuscular Volume 96.8 fl (80-94); Mean Platelet Volume 7.2 fl (7.4-10.4); Monocytes # 0.7 K/mm3 (0.1-1.0); Monocytes % 8.4 % (1.7-9.3); Neutrophils # 6.1 K/mm3 (1.8-7.8); Neutrophils % 74.9 % (37.0-80.0); Platelet Count 205 K/mm3 (142-424); Red Blood Count 3.11 M/mm3 (4.60-6.20); Red Cell Distribution Width 14.1 % (11.5-17.5); White Blood Count 8.2 K/mm3 (4.8-10.8)
[2018-01-28 03:58] LABS: Activated Partial Thrombo Time 29.2 seconds (23.6-34.0); INR 1.22 (0.9-1.1); Prothrombin Time 12.5 seconds (9.4-11.8)
[2018-01-28 04:02] LABS: Albumin Level 3.2 gm/dL (3.4-5.0); Albumin/Globulin Ratio 0.9 (1.1-1.8); Anion Gap 14.8 mEq/L (5-15); Bilirubin,Total 1.5 mg/dL (0.2-1.0); Globulin 3.5 gm/dl (1.3-3.2); Potassium 3.8 mmoL/L (3.5-5.1); Total Protein,Serum 6.7 gm/dL (6.4-8.2)
[2018-01-28 04:11] LABS: Calcium 8.7 mg/dL (8.5-10.1)
--- NOTE | 2018-01-28 05:42 | History & Physical Report ---
*Admission Date: 01/28/18 *Chief complaint: black stools *History of present illness: Mr. Bernabe is a pleasant 77-year-old male with history of A. fib who was recently admitted for left common femoral arterial thrombosis requiring emergent intervention with stent placement. He was just discharged yesterday on Plavix and Xarelto per the instructions of cardiology. Overnight his noted he had a very black tarry stool and was concerned for GI tract bleeding. Patient contacted on-call physician, was instructed to go to the emergency room for a repeat H&H and exam. Patient's hemoglobin noted to be stable on assessment, stool guaiac positive. Admitted for surgical consult and to start PPI therapy and monitor for continued bleeding. Patient denies fevers, changes in left leg pain, other signs of active bleeding, abdominal pain. 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, Hypertension, MRSA, Peripheral Artery Disease Denies:: Cancer, Diabetes Mellitus Type 1, Diabetes Mellitus Type 2, Seizures Other Medical History: Reports: Anemia Other Surgeries: Yes: Cardiac Catheterization, Other (TONSILECTOMY, FX REPAIR LEFT ANKLE) Amputation: No Fractures: Yes (LEFT ANKLE) - *Social History Educational Level: Completed High School Smoking Status: Former smoker Tobacco Type: cigarettes # Packs/Day (cigarettes): 1 #Yrs smoked (if former smoker): 50 Smoking End Date: 2003 Alcohol Intake: current Alcohol Intake Frequency:: 0-2 drinks per day Occupational Status: retired Housing: house Household Members: spouse - Psychiatric History Expresses thoughts of harming self/others: None Suicide Plan Description: No Plan *Family Hx:: No significant family history Review of Systems - Review of Systems Review of systems:: pertinent systems reviewed and negative unless documented below Meds Home Medications Medication Instructions Recorded Confirmed Type Clopidogrel Bisulfate [Plavix 75mg 75 mg PO DAILY 01/28/18 01/28/18 History Tab] Allergies Allergy/AdvReac Type Severity Reaction Status Date / Time No Known Allergies Allergy Verified 01/24/18 12:42 Exam Vital signs and Labs for Last 24 Hours: Temp Pulse Resp BP Pulse Ox 98.6 F 61 20 186/88 92 L 01/28/18 04:48 01/28/18 04:48 01/28/18 04:48 01/28/18 04:48 01/28/18 03:14 Laboratory Results - last 24 hr 01/28/18 03:37: Stool Occult Blood Positive A 01/28/18 03:37: WBC 8.2 D, RBC 3.11 L, Hgb 9.8 L, Hct 30.1 L, MCV 96.8 H, MCH 31.7 H, MCHC 32.7, RDW 14.1, Plt Count 205 D, MPV 7.2 L, Neut % (Auto) 74.9, Lymph % (Auto) 14.2, [place] % (Auto) 8.4, Eos % (Auto) 2.3, Baso % (Auto) 0.3, Neut # (Auto) 6.1, Lymph # (Auto) 1.2, [place] # (Auto) 0.7, Eos # (Auto) 0.2, Baso # (Auto) 0.0 01/28/18 03:37: Sodium 143, Potassium 3.8, Chloride 108 H, Carbon Dioxide 24, Anion Gap 14.8, BUN 9, Creatinine 0.92, Estimated Creat Clear 73, Estimated GFR 80, Est GFR ( Amer) 96, Glucose 102 D, Calcium 8.7 D, Total Bilirubin 1.5 H, AST 87 H D, ALT 32 D, Alkaline Phosphatase 69, Total Protein 6.7, Albumin 3.2 L, Globulin 3.5 H, Albumin/Globulin Ratio 0.9 L 01/28/18 03:37: PT 12.5 H, INR 1.22 H, APTT 29.2 I & O for Last 24 hours: Intake & Output 01/25/18 01/26/18 01/27/18 01/28/18 23:59 23:59 23:59 23:59 Weight 84.368 kg - *Routine HEENT Exam Head: Present: normocephalic, atraumatic Eye: Present: EOMI, PERRL ENT: Present: mucous membranes moist - *Routine Neck Exam Present: supple. Absent: lymphadenopathy - *Routine Respiratory Exam Present: CTA bilaterally. Absent: rales, stridor, wheezes - *Routine Cardiovascular Exam Present: RRR, Normal S1, Normal S2. Absent: murmur - *Routine Abdominal Exam Present: soft, normoactive bowel sounds. Absent: tenderness - *Routine Rectal Exam Patient deferred: visual exam - *Routine Exam Patient deferred: penile exam - *Routine Extremities Exam Absent: cyanosis, clubbing, edema, pallor, extremity cold to touch - *Routine Skin Exam Present: intact. Absent: cyanosis, erythema - *Routine Neurological Exam Present: alert, oriented X3, CN II-XII intact. Absent: sensory deficit - Routine Psychiatric Exam Present: normal affect, cooperative, good insight H&P: Result - Labs Labs: Short CBC 01/28/18 Range/Units 03:37 WBC 8.2 D (4.8-10.8) K/mm3 Hgb 9.8 L (14.1-18.0) g/dL Hct 30.1 L (42.0-52.0) % Plt Count 205 D (142-424) K/mm3 BMP 01/28/18 03:37 Sodium 143 Potassium 3.8 Chloride 108 H Carbon Dioxide 24 BUN 9 Creatinine 0.92 Glucose 102 D Calcium 8.7 D Liver Function 01/28/18 Range/Units 03:37 Total Bilirubin 1.5 H (0.2-1.0) mg/dL AST 87 H D (15-37) U/L ALT 32 D (12-78) U/L Alkaline Phosphatase 69 (46-116) U/L Albumin 3.2 L (3.4-5.0) gm/dL Assessment and Plan (1) PAD (peripheral artery disease) Current visit: Yes Status: Acute Category: Medical Code(s): I73.9 - Peripheral vascular disease, unspecified (2) Atrial fibrillation Current visit: Yes Status: Acute Qualifiers: Atrial fibrillation type: chronic Qualified Code(s): I48.2 - Chronic atrial fibrillation Category: Medical Code(s): I48.91 - Unspecified atrial fibrillation (3) Thrombosis of left femoral artery Current visit: Yes Status: Resolved Category: Medical Code(s): I74.3 - Embolism and thrombosis of arteries of the lower extremities (4) Melena Current visit: Yes Status: Acute Category: Medical Code(s): K92.1 - Melena (5) Acute anemia Current visit: Yes Status: Acute Category: Medical Code(s): D64.9 - Anemia , unspecified - Assessment and plan all Dx Assessment and Plan for all problems:: Recent intervention for left common femoral arterial thrombosis, on Plavix and Xarelto -Acute onset of melena at home after being discharged yesterday -H&H stable, repeat pending this afternoon -Given antiplatelet therapy and anticoagulant therapy in setting of inspected GI bleed, will hold Plavix and Xarelto for this morning -Consult cardiology about continuation of Plavix and Xarelto -Surgery consulted for possible EGD to assess for GI bleed source -PPI drip initiated, plan to transition to oral PPI for continuation at time of discharge and while on anticoagulation -Monitor bleeding, transfuse to goal greater than 9
--- NOTE | 2018-01-28 08:49 | Pharmacy Consult Notes ---
[facility] Pharmacy VTE Monitoring - Patient Demographics Admission date: 01/28/18 Report Date: 01/28/18 Time: 08:48 Allergies/Adverse Reactions: Patient Allergies No Known Allergies Allergy (Verified 01/24/18 12:42) Height: 1.78 m Weight: 89.925 kg Patient Problems: Current Active Problems PAD (peripheral artery disease) (Acute) Atrial fibrillation (Acute) Melena (Acute) Acute anemia (Acute) - VTE Risk Labs: VTE Related Lab Results Hgb 9.8 g/dL (14.1-18.0) L 01/28/18 03:37 Hct 30.1 % (42.0-52.0) L 01/28/18 03:37 Plt Count 205 K/mm3 (142-424) D 01/28/18 03:37 PT 12.5 seconds (9.4-11.8) H 01/28/18 03:37 INR 1.22 (0.9-1.1) H 01/28/18 03:37 APTT 29.2 seconds (23.6-34.0) 01/28/18 03:37 BUN 9 mg/dL (7-18) 01/28/18 03:37 Creatinine 0.92 mg/dL (0.70-1.30) 01/28/18 03:37 Estimated Creat Clear 73 mL/min (0-300) 01/28/18 03:37 Was VTE Risk Assessment Performed: Yes VTE Score: 3 VTE Risk Level: Low Risk - Prophylaxis Location of Applied Device: Bilateral Lower Extremeties (DINESH HOSE ORDER PLACED)
[2018-01-28 10:11] LABS: Basophils % 0.4 % (0.1-2.0); Eosinophils # 0.1 K/mm3 (0.0-0.4); Hematocrit 29.3 % (42.0-52.0); Hemoglobin 9.5 g/dL (14.1-18.0); Lymphocytes # 1.1 K/mm3 (0.7-4.5); Lymphocytes % 17.3 K/mm3 (10-50); Mean Corpuscular HGB Conc 32.6 g/dL (31.8-35.4); Mean Corpuscular Hemoglobin 31.5 pg (27.0-31.2); Mean Corpuscular Volume 96.6 fl (80-94); Mean Platelet Volume 7.8 fl (7.4-10.4); Monocytes # 0.5 K/mm3 (0.1-1.0); Monocytes % 8.6 % (1.7-9.3); Neutrophils # 4.5 K/mm3 (1.8-7.8); Neutrophils % 71.6 % (37.0-80.0); Platelet Count 189 K/mm3 (142-424); Red Blood Count 3.03 M/mm3 (4.60-6.20); Red Cell Distribution Width 14.5 % (11.5-17.5); White Blood Count 6.2 K/mm3 (4.8-10.8)
[2018-01-28 16:05] LABS: Basophils % 0.3 % (0.1-2.0); Eosinophils # 0.2 K/mm3 (0.0-0.4); Eosinophils % 2.2 % (0.1-12.0); Hematocrit 29.9 % (42.0-52.0); Hemoglobin 9.7 g/dL (14.1-18.0); Lymphocytes # 0.9 K/mm3 (0.7-4.5); Lymphocytes % 12.1 K/mm3 (10-50); Mean Corpuscular HGB Conc 32.5 g/dL (31.8-35.4); Mean Corpuscular Hemoglobin 31.3 pg (27.0-31.2); Mean Corpuscular Volume 96.3 fl (80-94); Monocytes # 0.5 K/mm3 (0.1-1.0); Monocytes % 6.8 % (1.7-9.3); Neutrophils # 5.6 K/mm3 (1.8-7.8); Neutrophils % 78.7 % (37.0-80.0); Platelet Count 195 K/mm3 (142-424); Red Blood Count 3.11 M/mm3 (4.60-6.20); Red Cell Distribution Width 14.5 % (11.5-17.5); White Blood Count 7.1 K/mm3 (4.8-10.8)
--- NOTE | 2018-01-28 17:08 | Discharge Summary ---
General - General Admission date:: 01/28/18 Discharge date: 01/28/18 HPI HPI: Mr. Bernabe is a pleasant 77-year-old male with history of A. fib who was recently admitted for left common femoral arterial thrombosis requiring emergent intervention with stent placement. He was just discharged yesterday on Plavix and Xarelto per the instructions of cardiology. Overnight his noted he had a very black tarry stool and was concerned for GI tract bleeding. Patient contacted on-call physician, was instructed to go to the emergency room for a repeat H&H and exam. Patient's hemoglobin noted to be stable on assessment, stool guaiac positive. Admitted for surgical consult and to start PPI therapy and monitor for continued bleeding. Patient denies fevers, changes in left leg pain, other signs of active bleeding, abdominal pain. Hospital Course Hospital Course: Recently admitted and discharged less than 24hrs prior for left Common femoral Aa thrombosis with intervention by Cardiology. Presented this admission for concern of GI bleed in setting of Antiplatelet and anticoagulant therapy. Pt had 2 "black stools" at home. Upon admission in ER pt had positive stool guiac. H&H consistent with previous labs at discharge. Hemodynamically stable on admission. Admitted for observation. Received PPI infusion with transition to daily PO protonix. Surgery consult placed. No emergent need for EGD. Recommended [employer] EGD. Consulted cardiology who recommended continuing current anti-coagulation regimen with Plavix and Xarelto. No further bleeding during admission. Hemoglobin stable. Discharged home in stable condition on daily PPI to decrease risk for future bleed. Objective Vital signs: Temp Pulse Resp BP Pulse Ox 98.1 F 60 16 151/69 92 L 01/28/18 15:48 01/28/18 15:48 01/28/18 15:48 01/28/18 15:48 01/28/18 15:48 no acute distress - *Routine HEENT Exam Head: Present: normocephalic, atraumatic Eye: Present: EOMI, PERRL. Absent: conjunctival icterus ENT: Present: mucous membranes moist - *Routine Neck Exam Present: supple. Absent: lymphadenopathy - *Routine Respiratory Exam Present: CTA bilaterally. Absent: prolonged expiratory phase, rales, wheezes - *Routine Cardiovascular Exam Present: RRR, Normal S1, Normal S2. Absent: murmur - *Routine Abdominal Exam Present: soft, normoactive bowel sounds. Absent: tenderness - *Routine Rectal Exam Patient deferred: visual exam - *Routine Exam Patient deferred: penile exam - *Routine Extremities Exam Absent: cyanosis, clubbing, edema, calf tenderness, extremity cold to touch Comments: mild tenderness in left quadracept, palpable DPs, absent PTs in bilateral legs - *Routine Skin Exam Present: intact. Absent: cyanosis - *Routine Neurological Exam Present: alert, oriented X3, CN II-XII intact Results Labs on day of discharge: Labs from last 24 hours 01/28/18 01/28/18 01/28/18 15:55 10:02 03:37 WBC 7.1 6.2 RBC 3.11 L 3.03 L Hgb 9.7 L 9.5 L Hct 29.9 L 29.3 L MCV 96.3 H 96.6 H MCH 31.3 H 31.5 H MCHC 32.5 32.6 RDW 14.5 14.5 Plt Count 195 189 MPV 8.0 7.8 Neut % (Auto) 78.7 71.6 Lymph % (Auto) 12.1 17.3 [place] % (Auto) 6.8 8.6 Eos % (Auto) 2.2 2.0 Baso % (Auto) 0.3 0.4 Neut # (Auto) 5.6 4.5 Lymph # (Auto) 0.9 1.1 [place] # (Auto) 0.5 0.5 Eos # (Auto) 0.2 0.1 Baso # (Auto) 0.0 0.0 PT 12.5 H INR 1.22 H APTT 29.2 Sodium Potassium Chloride Carbon Dioxide Anion Gap BUN Creatinine Estimated Creat Clear Estimated GFR Est GFR ( Amer) Glucose Calcium Total Bilirubin AST ALT Alkaline Phosphatase Total Protein Albumin Globulin Albumin/Globulin Ratio Stool Occult Blood 01/28/18 01/28/18 01/28/18 03:37 03:37 03:37 WBC 8.2 D RBC 3.11 L Hgb 9.8 L Hct 30.1 L MCV 96.8 H MCH 31.7 H MCHC 32.7 RDW 14.1 Plt Count 205 D MPV 7.2 L Neut % (Auto) 74.9 Lymph % (Auto) 14.2 [place] % (Auto) 8.4 Eos % (Auto) 2.3 Baso % (Auto) 0.3 Neut # (Auto) 6.1 Lymph # (Auto) 1.2 [place] # (Auto) 0.7 Eos # (Auto) 0.2 Baso # (Auto) 0.0 PT INR APTT Sodium 143 Potassium 3.8 Chloride 108 H Carbon Dioxide 24 Anion Gap 14.8 BUN 9 Creatinine 0.92 Estimated Creat Clear 73 Estimated GFR 80 Est GFR ( Amer) 96 Glucose 102 D Calcium 8.7 D Total Bilirubin 1.5 H AST 87 H D ALT 32 D Alkaline Phosphatase 69 Total Protein 6.7 Albumin 3.2 L Globulin 3.5 H Albumin/Globulin Ratio 0.9 L Stool Occult Blood Positive A DS: Diagnosis - Discharge Diagnosis (1) PAD (peripheral artery disease) Status: Acute (2) Atrial fibrillation Status: Acute (3) Thrombosis of left femoral artery Status: Resolved (4) Melena Status: Acute (5) Acute anemia Status: Acute Discharge Plan - Patient Discharge Instructions Patient Instructions: Gastrointestinal Bleeding - Follow up Plan Follow up with: Lowell Dyer MD [Staff Physician] - Disposition: Home, Self-Group Home Medications: Home Medications Medication Instructions Recorded Confirmed Type Clopidogrel Bisulfate [Plavix 75mg 75 mg PO DAILY 01/28/18 01/28/18 History Tab] Prescriptions/Medication Reconciliation: New Pantoprazole Sodium [Pantoprazole 20mg Tab] 40 mg PO DAILY 30 Days #60 tab Continue Nebivolol HCl [Bystolic] 5 mg PO DAILY #30 tab Rivaroxaban [Xarelto] 20 mg PO DAILY #30 tab Clopidogrel Bisulfate [Plavix 75mg Tab] 75 mg PO DAILY
== END 2018-01-28 18:15 | disposition home or self-care (01) ==
LOC: 2ND 03:12 → ER 03:12 → 2ND 05:07
PROVIDERS: ADMIT Internal Medicine Adolescent Medicine; ATTEND Internal Medicine Adolescent Medicine
CPT/HCPCS: 36415; 80053; 82272; 85025; 85610; 85730; 96365; 99283; G0328; G0378

== ENCOUNTER → 2018-02-01 06:40 | Outpatient (CLI) | payer MEDICARE, OTHER, SELFPAY ==
--- NOTE | 2018-02-01 06:44 | NM_ITS ---
History and Indications: Hypertension, family history, fatigue, Procedure: Patient received a 0.4 mg of Lexiscan, resting heart rate was 66 beats prominent, resting blood pressure 101/62, with Lexiscan maximum heart rate achieved was 75 bpm which is less than 85% of the maximum predicted heart rate and a blood pressure was 153/69. With Lexiscan patient complained of shortness of breath and malaise Electrocardiogram: Resting electrocardiogram showed the atrial fibrillation nonspecific ST-T changes, with Lexiscan less than 1.[address] segment depression noted from the baseline EKG. The EKG portion of the Lexiscan Myoview is nondiagnostic. Cardiac stress and resting SPECT images: Cardiac stress and rest SPECT images were obtained using technetium 99 Myoview 31.6 mCi at stress and 10.7 mCi at rest. Gated SPECT further analysis of segmental wall motion and calculation of the ejection fraction also done. Cardiac stress and rest images show uniform myocardial activity without any segmental perfusion abnormality, computer derived ejection fraction is over 65% with no obvious regional wall motion abnormality, right ventricle is normal size and contractility. Conclusion: 1. The EKG portion of the Lexiscan Myoview is nondiagnostic. 2. No obvious scintigraphic evidence of reversible ischemia seen, computer derived ejection fraction is over 65% with no obvious regional wall motion abnormality, right ventricle is normal size and contractility. 3. Normal Lexiscan Myoview study.
--- NOTE | 2018-02-01 09:36 | HMH.ITSHM ---
spironolactone furosemide rivaroxaban pantoprozole bystolic plavix
== END ==
PROVIDERS: Family Provider Nurse Practitioner Family; PCP Nurse Practitioner Family; Visit Provider Internal Medicine
DX: R06.02 Shortness of breath (principal); I73.9 Peripheral vascular disease, unspecified; I48.91 Unspecified atrial fibrillation; I74.3 Embolism and thrombosis of arteries of the lower extremities; K92.1 Melena; D64.9 Anemia, unspecified; M79.606 Pain in leg, unspecified
CPT/HCPCS: 78451; 93017; A9502; J2785

== ENCOUNTER → 2018-02-05 10:22 | Outpatient (CLI) | payer MEDICARE, OTHER, SELFPAY ==
[2018-02-05 11:45] LABS: Basophils # 0.1 K/mm3 (0-0.2); Basophils % 0.8 % (0.1-2.0); Eosinophils # 0.2 K/mm3 (0.0-0.4); Eosinophils % 2.8 % (0.1-12.0); Hemoglobin 12.1 g/dL (14.1-18.0); Lymphocytes # 1.6 K/mm3 (0.7-4.5); Lymphocytes % 27.2 K/mm3 (10-50); Mean Corpuscular HGB Conc 31.8 g/dL (31.8-35.4); Mean Corpuscular Hemoglobin 31.4 pg (27.0-31.2); Mean Corpuscular Volume 98.7 fl (80-94); Mean Platelet Volume 6.7 fl (7.4-10.4); Monocytes # 0.7 K/mm3 (0.1-1.0); Monocytes % 11.9 % (1.7-9.3); Neutrophils # 3.3 K/mm3 (1.8-7.8); Neutrophils % 57.3 % (37.0-80.0); Platelet Count 383 K/mm3 (142-424); Red Blood Count 3.85 M/mm3 (4.60-6.20); Red Cell Distribution Width 14.4 % (11.5-17.5); White Blood Count 5.7 K/mm3 (4.8-10.8)
[2018-02-05 13:39] LABS: Anion Gap 11.2 mEq/L (5-15); Blood Urea Nitrogen 7 mg/dL (7-18); Calcium 9.9 mg/dL (8.5-10.1); Carbon Dioxide 29 mmol/L (21.0-32.0); Chloride 106 mmol/L (98-107); Creatinine,Serum 0.93 mg/dL (0.70-1.30); Estimated Glomerular Filt Rate 79 ml/min (>60); GFR (African American) 95 ML/MIN (>60); Potassium 5.2 mmoL/L (3.5-5.1); Sodium 141 mmol/L (136-145)
[2018-02-05 14:16] LABS: Glucose 100 mg/dL (74-106)
== END ==
PROVIDERS: Visit Provider Internal Medicine
DX: D64.9 Anemia, unspecified (principal); I73.9 Peripheral vascular disease, unspecified; I48.91 Unspecified atrial fibrillation; E87.5 Hyperkalemia
CPT/HCPCS: 36415; 80048; 85025

== ENCOUNTER → 2018-02-22 10:44 | Outpatient (CLI) | payer MEDICARE, OTHER, SELFPAY ==
[2018-02-22 12:18] LABS: Blood Urea Nitrogen 12 mg/dL (7-18); Calcium 9.5 mg/dL (8.5-10.1); Carbon Dioxide 32 mmol/L (21.0-32.0); Chloride 102 mmol/L (98-107); Creatinine,Serum 1.15 mg/dL (0.70-1.30); Estimated Glomerular Filt Rate 62 ml/min (>60); GFR (African American) 74 ML/MIN (>60); Glucose 94 mg/dL (74-106); Sodium 139 mmol/L (136-145)
[2018-02-22 12:32] LABS: Basophils % 0.8 % (0.1-2.0); Eosinophils # 0.2 K/mm3 (0.0-0.4); Eosinophils % 3.3 % (0.1-12.0); Hematocrit 44.2 % (42.0-52.0); Hemoglobin 14.1 g/dL (14.1-18.0); Lymphocytes # 1.4 K/mm3 (0.7-4.5); Lymphocytes % 29.5 K/mm3 (10-50); Mean Corpuscular HGB Conc 31.9 g/dL (31.8-35.4); Mean Corpuscular Hemoglobin 31.2 pg (27.0-31.2); Mean Corpuscular Volume 97.7 fl (80-94); Monocytes # 0.5 K/mm3 (0.1-1.0); Monocytes % 11.1 % (1.7-9.3); Neutrophils # 2.6 K/mm3 (1.8-7.8); Neutrophils % 55.3 % (37.0-80.0); Platelet Count 220 K/mm3 (142-424); Red Blood Count 4.52 M/mm3 (4.60-6.20); Red Cell Distribution Width 13.7 % (11.5-17.5); White Blood Count 4.6 K/mm3 (4.8-10.8)
== END ==
PROVIDERS: Internal Medicine Adolescent Medicine; Family Provider Nurse Practitioner Family; PCP Nurse Practitioner Family; Visit Provider Physician Assistant
DX: I73.9 Peripheral vascular disease, unspecified (principal); D64.9 Anemia, unspecified
CPT/HCPCS: 36415; 80048; 85025

== ENCOUNTER → 2018-06-08 10:27 | Outpatient (CLI) | payer MEDICARE, OTHER, SELFPAY ==
[2018-06-08 11:37] LABS: Basophils % 0.4 % (0.1-2.0); Eosinophils # 0.1 K/mm3 (0.0-0.4); Eosinophils % 1.1 % (0.1-12.0); Hematocrit 44.9 % (42.0-52.0); Hemoglobin 14.2 g/dL (14.1-18.0); Lymphocytes # 1.4 K/mm3 (0.7-4.5); Lymphocytes % 24.3 % (10-50); Mean Corpuscular HGB Conc 31.5 g/dL (31.8-35.4); Mean Corpuscular Hemoglobin 29.8 pg (27.0-31.2); Mean Corpuscular Volume 94.5 fl (80-94); Mean Platelet Volume 6.8 fl (7.4-10.4); Monocytes # 0.8 K/mm3 (0.1-1.0); Monocytes % 14.6 % (1.7-9.3); Neutrophils # 3.4 K/mm3 (1.8-7.8); Neutrophils % 59.6 % (37.0-80.0); Platelet Count 182 K/mm3 (142-424); Red Blood Count 4.75 M/mm3 (4.60-6.20); Red Cell Distribution Width 14.5 % (11.5-17.5); White Blood Count 5.7 K/mm3 (4.8-10.8)
[2018-06-08 12:05] LABS: Alanine Aminotransferase 24 U/L (12-78); Albumin Level 3.8 gm/dL (3.4-5.0); Alkaline Phosphatase 101 U/L (46-116); Anion Gap 14.1 mEq/L (5-15); Aspartate Amino Transferase 19 U/L (15-37); Bilirubin,Total 1.2 mg/dL (0.2-1.0); Blood Urea Nitrogen 16 mg/dL (7-18); Carbon Dioxide 28 mmol/L (21.0-32.0); Chloride 101 mmol/L (98-107); Creatinine,Serum 1.14 mg/dL (0.70-1.30); Estimated Glomerular Filt Rate 62 ml/min (>60); GFR (African American) 75 ML/MIN (>60); Globulin 3.8 gm/dl (1.3-3.2); Glucose 94 mg/dL (74-106); Potassium 4.1 mmoL/L (3.5-5.1); Sodium 139 mmol/L (136-145); Total Protein,Serum 7.6 gm/dL (6.4-8.2)
== END ==
PROVIDERS: Visit Provider Internal Medicine Adolescent Medicine
DX: R50.9 Fever, unspecified (principal)
CPT/HCPCS: 36415; 80053; 85025; 87040

== ENCOUNTER → 2018-08-17 10:37 | Outpatient (CLI) | payer MEDICARE, OTHER, SELFPAY ==
[2018-08-17 12:31] LABS: Blood Urea Nitrogen 19 mg/dL (7-18); Calcium 9.2 mg/dL (8.5-10.1); Carbon Dioxide 30 mmol/L (21.0-32.0); Chloride 103 mmol/L (98-107); Creatinine,Serum 1.23 mg/dL (0.70-1.30); Estimated Glomerular Filt Rate 57 ml/min (>60); GFR (African American) 69 ML/MIN (>60); Glucose 125 mg/dL (74-106); Magnesium 1.7 mg/dL (1.4-2.2); Sodium 143 mmol/L (136-145)
== END ==
PROVIDERS: Visit Provider Internal Medicine Adolescent Medicine
DX: R25.2 Cramp and spasm (principal)
CPT/HCPCS: 36415; 80048; 83735

== ENCOUNTER → 2018-10-12 08:48 | Outpatient (CLI) | payer MEDICARE, OTHER, SELFPAY ==
--- NOTE | 2018-10-12 08:51 | US_ITS ---
US Arterial Ankle Brachial Ind History: ITS.REASON: pad, claudication, rest pain or prior stent in the left leg ORDERING PHYSICIAN: Jozef Medina MD PATIENT AGE: 78 years TECHNIQUE: Segmental pressures obtained of both right and left leg. These are compared to brachial blood pressure to yield index at each level sampled including summary LEVY. The data sheets from the procedure are available in PACS FINDINGS Rest study only performed today No prior studies available for comparison. Blood pressures reported are in millimeters mercury. RIGHT LEG LEVY = 0.4. RIGHT LEG TBI=0.4 Brachial BP: 148 Thigh BP: 70 Calf BP: 71 Ankle PT: 67 Ankle DP : 71 Digit =67 LEFT LEG LEVY = 0.8 LEFT LEG TBI= 0.9 Brachial BPD: 152 Thigh BP: 153 Calf BP: 144 Ankle PT:120 Ankle DP: 136 Digit = 90 Pulses and waveforms: The wave forms are decreased in the ankles and the pulses are decreased on the right IMPRESSION: 1. Low right LEVY of 0.4 compatible with severe arterial disease. The thigh pressure on the right is one half that of the brachial pressure suggesting a stenosis in either the right iliac, right common femoral, or proximal SFA. CT angiogram may confirm 2. Slightly low left LEVY indicating mild arterial disease on the left
== END ==
PROVIDERS: PCP Internal Medicine Adolescent Medicine; Visit Provider Internal Medicine
DX: I10 Essential (primary) hypertension (principal); I48.2 Chronic atrial fibrillation; I73.9 Peripheral vascular disease, unspecified; I74.3 Embolism and thrombosis of arteries of the lower extremities; Z79.01 Long term (current) use of anticoagulants; Z86.718 Personal history of other venous thrombosis and embolism
CPT/HCPCS: 93922

== ENCOUNTER → 2018-10-22 08:46 | Outpatient (CLI) | payer MEDICARE, OTHER, SELFPAY ==
--- NOTE | 2018-10-22 08:53 | CA_ITS ---
PROCEDURE: 2-D M-mode and color Doppler study INDICATIONS FOR THE TEST: Chest pain COPD Heart Murmur Tobacco Smoking Palpitations Fatigue Syncope Edema HypertensionXDiabetes Mellitus Rheumatic Fever SOBXDOE Obesity Hyperlipidemia Family History HD Additional History AF PRE CATH PAD PATIENT INFORMATION HEIGHT: 70 WEIGHT:187 GENDER: Male B/P:149/70 2-D/M-MODE INTERPRETATION: 2-D MEASUREMENTS OBSERVED VALUES IN CMS Right Ventricular Dimension (RVDd) 3.4 Interventricular Septum (Thickness)(IVsd) 1.1 Left Ventricular Internal Dimensions(LVIDd) 5.3 Left Ventricular Posterior Wall (Thickness)(LVPWd) 1.1 Aortic Root 3.0 Aortic Cusp Separation 1.0 Left Atrial Dimensions (LAD) 4.8 2D 1. Left atrium is moderately enlarged, left ventricle is normal size, mild concentric left ventricular hypertrophy, visually estimated ejection fraction 55% with no regional wall motion abnormality. 2. The right atrium is moderately enlarged, right ventricle is mildly dilated normal contractility. 3. The aortic valve is thickened and calcified with restriction the leaflet mobility. 4. The mitral and tricuspid valve leaflets are minimally thickened 5. The pulmonic valve is poorly visualized. 6. Trivial pericardial effusion noted. DOPPLER INTERROGATION: 1. The maximum aortic out flow velocity recorded study is 2.5 m/s, resulting in a mean gradient across valve of 13 mmHg, this represents mild aortic stenosis, there is no aortic insufficiency. 2. The mitral inflow velocity within normal range, there is no mitral stenosis, there is mild mitral regurgitation. 3. There is mild tricuspid regurgitation noted, tricuspid regurgitant jet velocity is inadequate for calculation of the right ventricular systolic pressure. CONCLUSION: 1. Moderate biatrial enlargement, normal left ventricular size, mild concentric left ventricular hypertrophy, visually estimated ejection fraction 55% with no regional wall motion abnormality, diastolic parameters are inconclusive. 2. The right ventricle is mildly dilated with normal contractility. 3. Thickened and calcified aortic valve with mean gradient across valve of 13 mmHg presence mild aortic stenosis, there is no aortic insufficiency. 4. Mild mitral and tricuspid regurgitation. 5. Trivial pericardial effusion noted.
== END ==
PROVIDERS: PCP Internal Medicine Adolescent Medicine; Visit Provider Internal Medicine
DX: I10 Essential (primary) hypertension (principal); I25.10 Atherosclerotic heart disease of native coronary artery without angina pectoris; I25.84 Coronary atherosclerosis due to calcified coronary lesion; I35.9 Nonrheumatic aortic valve disorder, unspecified; I48.91 Unspecified atrial fibrillation; I73.9 Peripheral vascular disease, unspecified; M79.606 Pain in leg, unspecified; R06.02 Shortness of breath; R93.1 Abnormal findings on diagnostic imaging of heart and coronary circulation
CPT/HCPCS: 93306

== ENCOUNTER 2018-11-05 14:10 | Outpatient (RCR) | payer MEDICARE, OTHER, SELFPAY | END 2019-01-11 13:14 | disposition home or self-care (01) | LOC: PT 14:10 | PROVIDERS: Visit Provider Urology | DX: I25.10 Atherosclerotic heart disease of native coronary artery without angina pectoris (principal); I25.84 Coronary atherosclerosis due to calcified coronary lesion; R06.02 Shortness of breath; I73.9 Peripheral vascular disease, unspecified | CPT/HCPCS: 93798 ==

== ENCOUNTER → 2019-06-15 10:17 | Outpatient (CLI) | payer MEDICARE, OTHER, SELFPAY ==
[2019-06-15 11:00] LABS: Basophils # 0.1 K/mm3 (0-0.2); Basophils % 0.9 % (0.1-2.0); Eosinophils # 0.2 K/mm3 (0.0-0.4); Eosinophils % 3.5 % (0.1-12.0); Hematocrit 42.1 % (42.0-52.0); Hemoglobin 13.4 g/dL (14.1-18.0); Lymphocytes # 1.7 K/mm3 (0.7-4.5); Lymphocytes % 30.4 % (10-50); Mean Corpuscular HGB Conc 31.9 g/dL (31.8-35.4); Mean Corpuscular Hemoglobin 30.3 pg (27.0-31.2); Mean Platelet Volume 7.8 fl (7.4-10.4); Monocytes # 0.5 K/mm3 (0.1-1.0); Monocytes % 8.9 % (1.7-9.3); Neutrophils # 3.1 K/mm3 (1.8-7.8); Neutrophils % 56.2 % (37.0-80.0); Platelet Count 194 K/mm3 (142-424); Red Blood Count 4.43 M/mm3 (4.60-6.20); Red Cell Distribution Width 13.4 % (11.5-17.5); White Blood Count 5.5 K/mm3 (4.8-10.8)
[2019-06-15 11:02] LABS: INR 1.29 (0.9-1.1); Prothrombin Time 13.3 seconds (9.4-11.8)
[2019-06-15 13:03] LABS: Alanine Aminotransferase 19 U/L (12-78); Albumin Level 3.7 gm/dL (3.4-5.0); Albumin/Globulin Ratio 1.1 (1.1-1.8); Alkaline Phosphatase 103 U/L (46-116); Anion Gap 14.4 mEq/L (5-15); Aspartate Amino Transferase 21 U/L (15-37); Bilirubin,Total 0.7 mg/dL (0.2-1.0); Blood Urea Nitrogen 15 mg/dL (7-18); Calcium 8.9 mg/dL (8.5-10.1); Carbon Dioxide 29 mmol/L (21.0-32.0); Chloride 106 mmol/L (98-107); Chol/HDL Ratio 2.4 (1-3.5); Cholesterol 139 mg/dL (140-200); Estimated Glomerular Filt Rate 53 ml/min (>60); GFR (African American) 64 ML/MIN (>60); Globulin 3.4 gm/dl (1.3-3.2); Glucose 88 mg/dL (74-106); HDL Cholesterol 58 mg/dL (27-67); LDL Cholesterol 68 mg/dL (0-130); Potassium 4.4 mmoL/L (3.5-5.1); Sodium 145 mmol/L (136-145); Total Protein,Serum 7.1 gm/dL (6.4-8.2); Triglycerides 66 mg/dL (30-200); VLDL Cholesterol 13 mg/dL (0-40)
== END ==
PROVIDERS: Visit Provider Internal Medicine Adolescent Medicine
DX: E78.5 Hyperlipidemia, unspecified (principal); I48.20 Chronic atrial fibrillation, unspecified
CPT/HCPCS: 36415; 80053; 80061; 85025; 85610

== ENCOUNTER → 2019-10-21 09:05 | Outpatient (CLI) | payer MEDICARE, OTHER, SELFPAY ==
--- NOTE | 2019-10-21 09:06 | CA_ITS ---
APPROVED REPORT EXAM: Comprehensive 2D, Doppler, and color-flow Echocardiogram General Assistant: Ewa Pierce RT(R) Ht: 5 ft 10 in Wt: 186lbs BSA: 2.02 BP: 145/53 mmHg Indications: AFIB, HTN, ex smoker, SOB, CAD, 2D Dimensions LVOT 1.97 cm (M/F) 1.5-2.5 M-Mode Dimensions RVDd 2.44 cm (0.9-2.6) LVDd 6.14 cm (3.5-5.7) LVDs 4.04 cm (3.5-5.7) IVSd 0.95 cm (0.6-1.1) PWd 0.99 cm (0.6-1.1) EF (Teich) 62.20% FS 34.20% EDV (Teich) 189.70 mL ESV (Teich) 71.70 mL LV Diastology E/A Ratio 3.09 Aortic Valve LVOT Max 72.00 (70-110 cm/s) LVOT VTI 16.80 cm Mitral Valve MV A Velocity 36.00 (40-130 cm/s) MV Mean Gr. 15.60 (<2mmHg) Left Ventricle Left atrium is moderately enlarged, left ventricle is normal size, mild concentric left ventricular hypertrophy, visually estimated ejection fraction 55% with no regional wall motion abnormality, diastolic parameters are inconclusive. Right Ventricle Right atrium right ventricle mildly enlarged with normal contractility. Aortic Valve Aortic valve is thickened and calcified with restriction to leaflet mobility, morphologically there appears to be moderate to severe aortic stenosis, however the mean gradient across valve is only 14 mmHg, if clinically indicated a transesophageal echocardiogram is recommended to determine the severity of the aortic valve stenosis. Mitral Valve Mitral valve has mitral annular calcification, there is no mitral stenosis, there is mild mitral regurgitation. Tricuspid Valve Tricuspid valve is grossly normal, there is mild tricuspid regurgitation, tricuspid regurgitation jet velocity is inadequate for calculation of the right ventricular systolic pressure. Pulmonic Valve Pulmonic valve is poorly visualized. Great Vessels Aortic root is normal size. Pericardium No significant pericardial effusion noted. Conclusion 1. Biatrial alignment, normal left ventricular size, mild concentric left ventricular hypertrophy, visually estimated ejection fraction 55% with no regional wall motion abnormality, diastolic parameters are inconclusive. 2. Thickened and calcified aortic valve morphologically there is moderate to severe aortic stenosis, however the mean gradient across valve is only 14 mmHg, if clinically indicated a transesophageal echocardiogram is recommended to determine the severity of the aortic valve stenosis. 3. Mild mitral and tricuspid regurgitation. 4. No significant pericardial effusion noted. Electronically signed by : Sandro Luna, 10/21/2019 19:32:24
== END ==
PROVIDERS: PCP Internal Medicine Adolescent Medicine; Visit Provider Urology
DX: I10 Essential (primary) hypertension (principal); I25.10 Atherosclerotic heart disease of native coronary artery without angina pectoris; I35.9 Nonrheumatic aortic valve disorder, unspecified; I73.9 Peripheral vascular disease, unspecified; R06.02 Shortness of breath; I48.20 Chronic atrial fibrillation, unspecified
CPT/HCPCS: 93306

== ENCOUNTER → 2020-02-03 13:11 | Outpatient (CLI) | payer MEDICARE, OTHER, SELFPAY ==
[2020-02-03 13:30] LABS: Basophils # 0.1 K/mm3 (0-0.2); Basophils % 1.2 % (0.1-2.0); Eosinophils # 0.2 K/mm3 (0.0-0.4); Eosinophils % 4.1 % (0.1-12.0); Hemoglobin 15.1 g/dL (14.1-18.0); Lymphocytes # 1.3 K/mm3 (0.7-4.5); Lymphocytes % 25.6 % (10-50); Mean Corpuscular HGB Conc 34.2 g/dL (31.8-35.4); Mean Corpuscular Hemoglobin 32.3 pg (27.0-31.2); Mean Corpuscular Volume 94.4 fl (80-94); Mean Platelet Volume 7.7 fl (7.4-10.4); Monocytes # 0.4 K/mm3 (0.1-1.0); Monocytes % 8.5 % (1.7-9.3); Neutrophils % 60.6 % (37.0-80.0); Platelet Count 195 K/mm3 (142-424); Red Blood Count 4.66 M/mm3 (4.60-6.20); Red Cell Distribution Width 13.2 % (11.5-17.5); White Blood Count 4.9 K/mm3 (4.8-10.8)
[2020-02-03 14:20] LABS: Alanine Aminotransferase 23 U/L (12-78); Albumin Level 4.7 g/dl (3.5-5.0); Albumin/Globulin Ratio 1.5 (1.1-1.8); Alkaline Phosphatase 88 U/L (38-126); Anion Gap 16.7 mEq/L (5-15); Aspartate Amino Transferase 32 U/L (17-59); Bilirubin,Total 0.9 mg/dl (0.2-1.3); Blood Urea Nitrogen 47 mg/dl (9-20); Calcium 10.3 mg/dl (8.4-10.2); Carbon Dioxide 29 mmol/L (22.0-30.0); Chloride 104 mmol/L (98-107); Chol/HDL Ratio 2.6 (1-3.5); Cholesterol 172 mg/dl (140-200); Estimated Glomerular Filt Rate 42 ml/min (>60); GFR (African American) 51 ML/MIN (>60); Globulin 3.1 g/dL (1.3-3.2); Glucose 100 mg/dl (74-100); HDL Cholesterol 67 mg/dl (40-60); Potassium 5.7 mmoL/L (3.5-5.1); Sodium 144 mmol/L (136-145); Total Protein,Serum 7.8 g/dl (6.3-8.2); Triglycerides 110 mg/dl (30-150); VLDL Cholesterol 22 mg/dL (0-40)
[2020-02-03 14:30] LABS: Direct LDL Cholesterol 87.86 mg/dL (100-129)
[2020-02-03 14:50] LABS: Thyroid Stimulating Hormone 4.44 uIU/mL (0.465-4.68)
== END ==
PROVIDERS: Visit Provider Internal Medicine Adolescent Medicine
DX: I73.9 Peripheral vascular disease, unspecified (principal); E78.5 Hyperlipidemia, unspecified
CPT/HCPCS: 36415; 80053; 80061; 84443; 85025

== ENCOUNTER → 2020-09-11 06:46 | Outpatient (CLI) | payer MEDICARE, OTHER, SELFPAY ==
--- NOTE | 2020-09-11 06:47 | NM_ITS ---
APPROVED REPORT Exam: Nuclear Stress Test Indication: CAD, H/O WI, HTN, HYPERLIPIDEMIA, FM HX, SOB, FATIGUE Patient Location: Outpatient Stress Tech: Dawna Mathews [place] Tech:PEGGY Garcia RT(R)(N) Ht: 5 ft 10 in Wt: 189 lbs BSA: 2.04 m2 BMI: 27.1 History: CAD, H/O WI, HTN, HYPERLIPIDEMIA, FM HX, SOB, FATIGUE Procedure: Patient received a 0.4 mg of intravenous Lexiscan, resting heart rate 46 bpm, resting blood pressure 162/55 mmHg, with Lexiscan maximum heart rate achived was 53 bpm which is % of the maximum predicted heart rate and blood pressure was 180/65 mmHg. With Lexiscan, patient denied any complaint of chest pain. Electrocardiogram Resting electrocardiogram showed sinus rhythm, with Lexiscan there is less than 1.[address] segment depression noted from the baseline EKG. The EKG portion of the Lexiscan is nondiagnostic. Cardiac Stress and Resting SPECT Images: Cardiac Stress and Resting SPECT images were obtained using technetium 99m Myoview 29.9 mCi stress and 9.92 mCi at rest. Gated SPECT for analysis of segmental wall motion and calculation of the ejection fraction also done. Prone images were also obtained. Cardiac stress and rest SPECT images show uniform myocardial activity without segmental perfusion abnormality, computer derived ejection fraction is 64% with no regional wall motion abnormality, right ventricle is normal size and contractility. Conclusion: 1. The EKG portion of the Lexiscan is nondiagnostic. 2. No scintigraphic evidence of reversible ischemia seen, computer derived ejection fraction is 64% with no regional wall motion abnormality, right ventricle is normal size and contractility. 3. Normal Lexiscan Myoview study. Electronically signed by : Sandro Luna, 09/11/2020 10:56:32
--- NOTE | 2020-09-11 06:47 | CA_ITS ---
APPROVED REPORT Exam: Pharmacologic Technologist: Yudith Mathews, Ht: 5 ft 10 in Wt: 189 lbs BSA: 2.04 m2 HR: 46 bpm BP: 162/55 mmHg Rhythm: AFIB WITH KIRTI WITH NONSPECIFIC T WAVE ABNORMALITIES VS. SINUS KIRTI WITH ECTOPY Medical History Medical History: HTN, Hyperlipidemia Medications: Lisinopril,,,,, Lasix,,,,, Plavix,,,,, RoSUVASTATIN,,,,, RIvaROXABAN,,,,, NeBivolol,,,,, Allergies: No known drug allergies Cardiac Risk Factors: HTN, Hyperlipidemia, FHX of CAD Stress Test Details Test: LEXISCAN HR Resting HR: 56 bpm Max Heart Rate (APMHR): 140.975229 bpm Max HR Achieved: 62 bpm Target HR (85% APMHR): 119.179794 bpm % of APMHR: 44.29 Recovery HR: 54 bpm BP Resting BP: 162.0/55.0 mmHg Max BP: 186.0/72.0 mmHg Recovery BP: 186.0/72.0 mmHg ECG Clinical Reason for Termination: Completed Protocol Exercise duration: 04:16 min Highest Stage Achieved: Stress ECG Conclusion DURING INFUSION PATIENT HAD NO SYMPTOMS. NO ARRHYTHMIAS/ECTOPY. < 1.5MM ST SEGMENT CHANGES. NON-DIAGNOSTIC STRESS. Test Summary RECOVERY 04:25 . . 56 . 166/ 59 . . REST 09:34 . . 56 . 162/ 55 . . Stage 1 . . . . . . . Cardiolite injected Stage 1 01:00 . . 53 . . . . Stage 2 01:00 . . 57 . . . . Stage 3 01:00 . . 55 . 180/ 65 . . Stage 4 01:00 . . 58 . 179/ 66 . . Stage 4 01:16 . . 59 . 179/ 66 . Stop exercise at 04:16 RECOVERY 01:00 . . 52 . 186/ 72 . . RECOVERY 02:00 . . 45 . 186/ 72 . . RECOVERY 03:00 . . 47 . 166/ 59 . . RECOVERY 04:00 . . 44 . 166/ 59 . . RECOVERY 04:25 . . 56 . 166/ 59 . . Electronically signed by : Sandro Luna, 09/11/2020 10:45:56
[2020-09-11 10:13] LABS: Chloride 106 mmol/L (98-107); Sodium 140 mmol/L (136-145)
[2020-09-11 10:14] LABS: Potassium 4.9 mmoL/L (3.5-5.1)
[2020-09-11 10:16] LABS: Basophils % 0.7 % (0.1-2.0); Blood Urea Nitrogen 30 mg/dl (9-20); Eosinophils # 0.2 K/mm3 (0.0-0.4); Eosinophils % 3.6 % (0.1-12.0); Estimated Glomerular Filt Rate 36 ml/min (>60); GFR (African American) 44 ML/MIN (>60); Hematocrit 39.1 % (42.0-52.0); Hemoglobin 12.2 g/dL (14.1-18.0); Lymphocytes # 1.2 K/mm3 (0.7-4.5); Lymphocytes % 24.8 % (10-50); Mean Corpuscular HGB Conc 31.3 g/dL (31.8-35.4); Mean Corpuscular Hemoglobin 30.2 pg (27.0-31.2); Mean Corpuscular Volume 96.5 fl (80-94); Mean Platelet Volume 7.9 fl (7.4-10.4); Monocytes # 0.6 K/mm3 (0.1-1.0); Monocytes % 12.7 % (1.7-9.3); Neutrophils # 2.8 K/mm3 (1.8-7.8); Neutrophils % 58.2 % (37.0-80.0); Platelet Count 160 K/mm3 (142-424); Red Blood Count 4.05 M/mm3 (4.60-6.20); Red Cell Distribution Width 13.4 % (11.5-17.5); White Blood Count 4.8 K/mm3 (4.8-10.8)
[2020-09-11 10:17] LABS: Anion Gap 8.9 mEq/L (5-15); Calcium 9.9 mg/dl (8.4-10.2); Carbon Dioxide 30 mmol/L (22.0-30.0); Glucose 100 mg/dl (74-100)
[2020-09-11 10:47] LABS: Coronavirus 19 IgG Antibody Negative (Negative); Coronavirus 19 IgM Antibody Negative (Negative)
== END ==
PROVIDERS: Urology; PCP Internal Medicine Adolescent Medicine; Visit Provider Internal Medicine Cardiovascular Disease
DX: I10 Essential (primary) hypertension (principal); I25.10 Atherosclerotic heart disease of native coronary artery without angina pectoris; I73.9 Peripheral vascular disease, unspecified; R06.00 Dyspnea, unspecified; Z79.01 Long term (current) use of anticoagulants; Z01.818 Encounter for other preprocedural examination; Z20.822 Contact with and (suspected) exposure to COVID-19; I48.20 Chronic atrial fibrillation, unspecified
CPT/HCPCS: 78452; 80048; 85025; 86328; 93017; A9502; J2785

== ENCOUNTER 2020-09-17 12:30 | Day surgery (SDC) | payer MEDICARE, OTHER, SELFPAY ==
--- NOTE | 2020-09-17 12:32 | CA_ITS ---
APPROVED REPORT EXAM: Comprehensive 2D, Doppler, and color-flow Echocardiogram Bridge Worker Apprentice: Tracy Anaya RDCS Ht: 5 ft 10 in Wt: 189lbs BSA: 2.04 BP: 157/68 mmHg Indications: ANCELMO Procedure After obtaining informed consent, patient underwent transesophageal echo in the [facility] [facility] [employer]. Type of Sedation : Conscious Sedation Sedation was administered by Emiliano Mcfarland C.R.N.A. The ANCELMO was performed without complications. Throughout the procedure, the blood pressure, pulse oximetry, cardiac rhythm, and rate were monitored. The patient tolerated the procedure without adverse effects. Recovery from conscious sedation was uneventful and vital signs were stable. Left Ventricle Left ventricle is normal size, mild concentric left ventricular hypertrophy, visually estimated ejection fraction 55% in the obtained views. There is no regional wall motion abnormality. Right Ventricle Right ventricle is mildly enlarged with normal contractility. Atria Left atrium is moderately enlarged, left atrial appendage free of thrombus, there is poor appendage flow by spectral Doppler. There is a spontaneous echo contrast seen in the left atrium. Right atrium is moderately enlarged. Intra-atrial septum is intact, there is no flow across the interatrial septum. Agitated saline contrast study fails 25 intracardiac shunt. Aortic Valve Aortic valve is thickened and calcified restriction to leaflet mobility, morphologically there is mild to moderate aortic stenosis, valve area by planimetry is 1.4 cm???. There is no significant aortic insufficiency. Aortic valve is trileaflet. Mitral Valve Mitral valve leaflets are minimally thickened, there is no mitral stenosis, there is mild mitral regurgitation. Tricuspid Valve Tricuspid valve grossly normal, there is mild tricuspid regurgitation. Pulmonic Valve Pulmonic valve is grossly normal. Great Vessels Aortic root is normal size. There is no aneurysm or dissection. Pericardium No significant pericardial effusion noted. Conclusion 1. Biatrial enlargement, normal left ventricular size, preserved left ventricular systolic function. 2. Mildly enlarged right ventricle with normal contractility. 3. Thickened and calcified aortic valve with mild to moderate aortic stenosis, valve area is 1.4 cm By planimetry. 4. Other ancillary findings as described above. Electronically signed by : Sandro Luna, 09/17/2020 15:45:56
[2020-09-17 12:35] VITALS: BMI 27.1
[2020-09-17 12:38] VITALS: BP 170/67; PULSE 59; PULSE 64; RESP 18; O2SAT 97
[2020-09-17 12:45] VITALS: BP 170/67; PULSE 52; RESP 20; O2SAT 95
[2020-09-17 13:30] VITALS: BP 123/59; PULSE 55; RESP 20; O2SAT 93
[2020-09-17 14:10] VITALS: BP 123/59; PULSE 52; RESP 18; O2SAT 95
== END 2020-09-17 14:13 | disposition home or self-care (01) ==
LOC: CATHLAB 12:31
PROVIDERS: PCP Internal Medicine Adolescent Medicine; Visit Provider Internal Medicine Cardiovascular Disease
DX: I25.10 Atherosclerotic heart disease of native coronary artery without angina pectoris (principal); I73.9 Peripheral vascular disease, unspecified; I35.0 Nonrheumatic aortic (valve) stenosis; I10 Essential (primary) hypertension; R06.00 Dyspnea, unspecified; R93.1 Abnormal findings on diagnostic imaging of heart and coronary circulation; Z79.01 Long term (current) use of anticoagulants; I48.20 Chronic atrial fibrillation, unspecified
CPT/HCPCS: 93312

== ENCOUNTER → 2021-01-07 09:47 | Outpatient (CLI) | payer MEDICARE, OTHER, SELFPAY ==
[2021-01-07 10:27] LABS: Basophils # 0.1 K/mm3 (0-0.2); Basophils % 1.3 % (0.1-2.0); Eosinophils # 0.3 K/mm3 (0.0-0.4); Eosinophils % 5.1 % (0.1-12.0); Hemoglobin 12.6 g/dL (14.1-18.0); Lymphocytes # 1.7 K/mm3 (0.7-4.5); Lymphocytes % 31.7 % (10-50); Mean Corpuscular HGB Conc 31.6 g/dL (31.8-35.4); Mean Corpuscular Hemoglobin 30.3 pg (27.0-31.2); Mean Corpuscular Volume 95.9 fl (80-94); Mean Platelet Volume 7.4 fl (7.4-10.4); Monocytes # 0.6 K/mm3 (0.1-1.0); Monocytes % 11.4 % (1.7-9.3); Neutrophils # 2.7 K/mm3 (1.8-7.8); Neutrophils % 50.6 % (37.0-80.0); Platelet Count 177 K/mm3 (142-424); Red Blood Count 4.17 M/mm3 (4.60-6.20); Red Cell Distribution Width 13.1 % (11.5-17.5); White Blood Count 5.4 K/mm3 (4.8-10.8)
[2021-01-07 12:44] LABS: Alanine Aminotransferase 21 U/L (12-78); Albumin Level 4.5 g/dl (3.5-5.0); Albumin/Globulin Ratio 1.5 (1.1-1.8); Alkaline Phosphatase 104 U/L (38-126); Aspartate Amino Transferase 30 U/L (17-59); Bilirubin,Total 0.7 mg/dl (0.2-1.3); Blood Urea Nitrogen 54 mg/dl (9-20); Calcium 9.5 mg/dl (8.4-10.2); Carbon Dioxide 28 mmol/L (22.0-30.0); Chloride 107 mmol/L (98-107); Chol/HDL Ratio 3.4 (1-3.5); Cholesterol 159 mg/dl (140-200); Estimated Glomerular Filt Rate 25 ml/min (>60); GFR (African American) 30 ML/MIN (>60); Glucose 97 mg/dl (74-100); HDL Cholesterol 47 mg/dl (40-60); Sodium 146 mmol/L (136-145); Total Protein,Serum 7.5 g/dl (6.3-8.2); Triglycerides 149 mg/dl (30-150); Uric Acid 11.9 mg/dl (3.5-8.5); VLDL Cholesterol 30 mg/dL (0-40)
[2021-01-07 13:15] LABS: Thyroid Stimulating Hormone 4.47 uIU/mL (0.465-4.68)
== END ==
PROVIDERS: Visit Provider Internal Medicine Adolescent Medicine
DX: M10.071 Idiopathic gout, right ankle and foot (principal); I48.20 Chronic atrial fibrillation, unspecified; Z79.899 Other long term (current) drug therapy
CPT/HCPCS: 36415; 80053; 80061; 84443; 84550; 85025

== ENCOUNTER 2021-03-16 13:35 | Inpatient (IN) | payer MEDICARE, OTHER, SELFPAY ==
[2021-03-16 13:36] VITALS: BP 149/55; PULSE 73; RESP 24; TEMP 37.8; O2SAT 89; BMI 34.0
--- NOTE | 2021-03-16 13:52 | XR_ITS ---
PROCEDURE: XR CHEST PORTABLE CLINICAL HISTORY: weakness Cough COMPARISON: CR CXR2V XR chest 2V from 07/18/[address] angio chest from 10/13/2018 FINDINGS: There is cardiomegaly without failure. There is infiltrate in the right lung base laterally. No obvious effusion No acute bony abnormalities. IMPRESSION: Right lower lobe pneumonia Dictated by: Clifford Stanley MD 03/16/2021 14:37 Clifford Stanley MD in [facility] 03/16/2021 14:37
--- NOTE | 2021-03-16 13:53 | CT_ITS ---
PROCEDURE: CT HEAD/BRAIN WO CON CLINICAL INDICATION: confusion COMPARISON: No exams were available for comparison TECHNIQUE: Axial images obtained. All CT scans at the facility use one or more dose reduction, viz: automated exposure control, ma/kV adjustment per patient size (including targeted exams where dose is matched to indication, i.e. head), or iterative reconstruction technique. FINDINGS: No midline shift mass effect or acute intracranial hemorrhage is evident. There is a mild degree of atrophy. There is mild to moderate ventricular dilatation which appears to be slightly greater than what 1 would expect for the degree of atrophy raising the question of normal pressure hydrocephalus. There are encephalomalacia changes in the left occipital lobe. Mild motion artifact is present. IMPRESSION: 1. Mild prominence of the ventricles somewhat greater than what 1 would expect for the patient's degree of atrophy raising the question of normal pressure hydrocephalus. 2. Encephalomalacia change left occipital lobe Dictated by: Clifford Stanley MD 03/16/2021 14:49 Clifford Stanley MD in [facility] 03/16/2021 14:49
--- NOTE | 2021-03-16 14:46 | HMH.EDGENADL ---
ED Disposition Clinical Impression: Elevated troponin I level, Elevated brain natriuretic peptide (BNP) level, Acute respiratory failure with hypoxia RLL pneumonia Qualifiers: Pneumonia type: due to unspecified organism Qualified Code(s): J18.9 - Pneumonia, unspecified organism Disposition: Admitted As Inpatient Condition on Discharge: Good Referrals: Lowell Dyer MD [Primary Care Provider] - Time of Disposition: 16:20 - Critical Care Critical Care Time: No Attestation: On 03/16/21, the high probability of a clinically significant, sudden or life threatening deterioration of the following system(s) required my full and direct attention, intervention and personal management. The time I documented below is in addition to time spent performing reported procedures but includes the following listed in this critical care notation. Medical Decision Making - Medical Records Medical records reviewed: Yes: I reviewed the patient's medical records. - Ethan Inquiry Pt receiving controlled substance: No Vital Signs: 03/16/21 13:36 Temperature 100.1 F H Temperature Source Oral Pulse Rate [Right Radial] 73 Respiratory Rate 24 Blood Pressure [Right Arm] 149/55 H Blood Pressure Mean [Right Arm] 86 Blood Pressure Source [Right Arm] Automatic Cuff Blood Pressure Position [Right Arm] Sitting 02 Sat by Pulse Oximetry 89 L Oxygen Delivery Method Room Air - Lab Data Lab results reviewed: Yes: I reviewed the patient's lab results. Lab Results 03/16/21 15:00: WBC 8.9, RBC 3.76 L, Hgb 11.7 L, Hct 36.0 L, MCV 95.8 H, MCH 31.2, MCHC 32.6, RDW 13.5, Plt Count 215, MPV 8.7, Neut % (Auto) 81.3 H, Lymph % (Auto) 7.4 L, [place] % (Auto) 10.7 H, Eos % (Auto) 0.1, Baso % (Auto) 0.5, Neut # (Auto) 7.2, Lymph # (Auto) 0.7, [place] # (Auto) 1.0, Eos # (Auto) 0.0, Baso # (Auto) 0.0 03/16/21 15:00: Sodium 135 L, Potassium 4.5, Chloride 101, Carbon Dioxide 25, Anion Gap 13.5, BUN 24 H, Creatinine 1.70 H, Estimated Creat Clear 38, Estimated GFR 39 L, Est GFR ( Amer) 47 L, Glucose 106 H, Calcium 9.1, Total Bilirubin 1.4 H, AST 77 H, ALT 47, Alkaline Phosphatase 101, Troponin I 0.04 H, NT-Pro-B Natriuret Pep 5940 H, Total Protein 7.7, Albumin 4.2, Globulin 3.5 H, Albumin/Globulin Ratio 1.2, Lipase 70 03/16/21 15:00: SARS-CoV-2 (PCR) Not detected, Influenza A Untype (PCR) Not detected, Influenza Type B (PCR) Not detected Result diagrams: 03/16/21 15:00 03/16/21 15:00 Orders (Tests/Meds): ED MEDICATIONS Generic Name Dose Route Start Last Admin Trade Name Freq PRN Reason Stop Dose Admin Lactated Ringer's 1,000 mls @ 250 mls/hr 03/16/21 16:00 Lactated Ringer's 1000 Ml Bag IV 03/16/21 19:59 .Q4H LENCHO Azithromycin 500 mg/ Sodium 250 mls @ 250 mls/hr 03/16/21 17:15 Chloride IV 03/30/21 17:14 Q24H LENCHO Ceftriaxone Sodium 1 gm/ 50 mls @ 100 mls/hr 03/16/21 17:15 Sodium Chloride IV 03/30/21 17:14 Q24H LENCHO Discontinued Medications Generic Name Dose Route Start Last Admin Trade Name Freq PRN Reason Stop Dose Admin Ibuprofen 800 mg 03/16/21 14:50 03/16/21 15:14 Ibuprofen 400 Mg Tablet PO 03/16/21 14:51 800 mg ONCE ONE Administration ORDERS Category Date Time Status Troponin I Q3H Lab 03/16/21 17:00 Ordered Urinalysis and Microscopic Stat Lab 03/16/21 13:52 Ordered - Radiology Data #1 Image(s): Chest Image Reviewed: Yes I reviewed the patient's radiology results Preliminary Findings: Abnormal RLL PNA Medical Decision Narrative: 80yo M evaluated for shortness of breath and general malaise. Patient is requiring supplemental O2 to maintain appropriate O2 saturations on initial exam. Physical exam is remarkable for diffuse crackles throughout all lung rivas. Patient also has a junky sounding cough on exam. Laboratory studies along with EKG and chest x-ray are pending at this time. Patient also complained of confusion on check-in and therefore was sent for CT of his head
[2021-03-16 15:20] LABS: Coronavirus 19, PCR Not Detected (NotDetected); Influenza A, PCR Not Detected (NotDetected); Influenza B, PCR Not Detected (NotDetected)
[2021-03-16 15:29] LABS: Alanine Aminotransferase 47 U/L (12-78); Albumin Level 4.2 g/dl (3.5-5.0); Albumin/Globulin Ratio 1.2 (1.1-1.8); Alkaline Phosphatase 101 U/L (38-126); Anion Gap 13.5 mEq/L (5-15); Aspartate Amino Transferase 77 U/L (17-59); Bilirubin,Total 1.4 mg/dl (0.2-1.3); Blood Urea Nitrogen 24 mg/dl (9-20); Calcium 9.1 mg/dl (8.4-10.2); Carbon Dioxide 25 mmol/L (22.0-30.0); Chloride 101 mmol/L (98-107); Creatinine Clearance Estimated 38 mL/min (50-200); Estimated Glomerular Filt Rate 39 ml/min (>60); GFR (African American) 47 ML/MIN (>60); Globulin 3.5 g/dL (1.3-3.2); Glucose 106 mg/dl (74-100); Lipase 70 U/L (23-300); Potassium 4.5 mmoL/L (3.5-5.1); Sodium 135 mmol/L (136-145); Total Protein,Serum 7.7 g/dl (6.3-8.2)
[2021-03-16 15:42] LABS: NT Pro Brain Natriuretic Pep. 5940 pg/mL (0-450); Troponin I 0.04 ng/ml (0.00-0.034)
[2021-03-16 15:45] LABS: Basophils % 0.5 % (0.1-2.0); Eosinophils % 0.1 % (0.1-12.0); Hemoglobin 11.7 g/dL (14.1-18.0); Lymphocytes # 0.7 K/mm3 (0.7-4.5); Lymphocytes % 7.4 % (10-50); Mean Corpuscular HGB Conc 32.6 g/dL (31.8-35.4); Mean Corpuscular Hemoglobin 31.2 pg (27.0-31.2); Mean Corpuscular Volume 95.8 fl (80-94); Mean Platelet Volume 8.7 fl (7.4-10.4); Monocytes % 10.7 % (1.7-9.3); Neutrophils # 7.2 K/mm3 (1.8-7.8); Neutrophils % 81.3 % (37.0-80.0); Platelet Count 215 K/mm3 (142-424); Red Blood Count 3.76 M/mm3 (4.60-6.20); Red Cell Distribution Width 13.5 % (11.5-17.5); White Blood Count 8.9 K/mm3 (4.8-10.8)
--- NOTE | 2021-03-16 16:40 | PC.NURSE ---
waiting occupational ther back from dr. manning
[2021-03-16 17:31] LABS: Lactic Acid 1.4 mmol/L (0.7-2.1)
[2021-03-16 19:09] LABS: Troponin I 0.05 ng/ml (0.00-0.034)
[2021-03-16 21:24] VITALS: BMI 25.8
--- NOTE | 2021-03-16 21:24 | PC.NURSE ---
PT ARRIVE D TO FLOOR VIA W/C FROM ED W/STAFF AT 2121
[2021-03-16 21:36] VITALS: BP 133/71; PULSE 47; RESP 18; TEMP 35.5; O2SAT 96
[2021-03-16 21:47] VITALS: BP 134/83; PULSE 60; PULSE 68; RESP 18; TEMP 36.9; O2SAT 93; BMI 25.8
[2021-03-16 23:33] VITALS: RESP 18; O2SAT 96
[2021-03-17] VITALS: BP 101/37; PULSE 47; PULSE 60; RESP 20; TEMP 37; O2SAT 100
[2021-03-17 04:00] VITALS: BP 100/36; PULSE 40; PULSE 42; RESP 16; TEMP 36.8; O2SAT 98
[2021-03-17 05:00] VITALS: BMI 27.1
--- NOTE | 2021-03-17 06:32 | PC.NURSE ---
Patient has rested with eyes closed since he has arrived to the floor. Heart rate has been in from 29-48 bpm; he has been asymptomatic. Decreased O2 to 0.5 HR increased slightly to soren 30's-44 bpm; currently he is on RA with O2 sats in mid 90's. No s/s of acute distress noted, call light within reach, bed at lowest level for safety; will continue to monitor.
[2021-03-17 06:45] LABS: Basophils % 0.3 % (0.1-2.0); Eosinophils % 0.2 % (0.1-12.0); Hematocrit 35.9 % (42.0-52.0); Hemoglobin 11.5 g/dL (14.1-18.0); Lymphocytes % 11.4 % (10-50); Mean Corpuscular Hemoglobin 31.1 pg (27.0-31.2); Mean Corpuscular Volume 97.2 fl (80-94); Mean Platelet Volume 7.5 fl (7.4-10.4); Monocytes # 0.7 K/mm3 (0.1-1.0); Monocytes % 8.2 % (1.7-9.3); Neutrophils # 7.1 K/mm3 (1.8-7.8); Neutrophils % 79.9 % (37.0-80.0); Platelet Count 198 K/mm3 (142-424); Red Cell Distribution Width 13.1 % (11.5-17.5); White Blood Count 8.9 K/mm3 (4.8-10.8)
[2021-03-17 06:58] LABS: Anion Gap 14.8 mEq/L (5-15); Blood Urea Nitrogen 33 mg/dl (9-20); Calcium 8.8 mg/dl (8.4-10.2); Carbon Dioxide 25 mmol/L (22.0-30.0); Chloride 106 mmol/L (98-107); Chol/HDL Ratio 2.8 (1-3.5); Cholesterol 101 mg/dl (140-200); Creatinine Clearance Estimated 31 mL/min (50-200); Estimated Glomerular Filt Rate 27 ml/min (>60); GFR (African American) 33 ML/MIN (>60); Glucose 104 mg/dl (74-100); HDL Cholesterol 36 mg/dl (40-60); Potassium 4.8 mmoL/L (3.5-5.1); Sodium 141 mmol/L (136-145); Triglycerides 63 mg/dl (30-150); VLDL Cholesterol 13 mg/dL (0-40)
[2021-03-17 07:08] LABS: Direct LDL Cholesterol 44.35 mg/dL (100-129)
--- NOTE | 2021-03-17 07:12 | HMH.HP ---
*Admission Date: 03/16/21 *Chief complaint: shortness of breath *History of present illness: Mr. Hess is an 80yo M evaluated for shortness of breath and general malaise in the ER yesterday. He presented due to worsening shortness of breath and cough. On initial presentation found to have oxygen requirement given saturations in the high 80s on room air. Started on oxygen, chest imaging and labs obtained. Work-up remarkable for normal white cell count, kidney function at baseline creatinine 1.7. Elevation in his BNP, and chest imaging positive for focal right lower lobe consolidation. Admitted for management of pneumonia and possible CHF exacerbation. Given a dose of Lasix in the ER. Had minimal urine output per his report. On assessment this morning, he is pleasant but continuing to require oxygen. Reviewed labs from this morning, creatinine has gone up to 2.3 after diuresis with poor response to diuretic. He has had no IV fluids running. Denies chest pain, nausea, vomiting, fever. Still has harsh mildly productive cough. [facility] History I have reviewed the patient's past medical history: Yes Medical History: Reports:: Atrial Fibrillation, Hyperlipidemia, Hypertension, Myocardial Infarction, Peripheral Artery Disease Denies:: Cancer, Diabetes Mellitus Type 1, Diabetes Mellitus Type 2, Internal Pacemaker, MRSA, Seizures *Have you ever received a pneumonia vaccine?: Yes *Have you received a flu vaccine this season?: Yes Other Medical History: Reports: Anemia Other Surgeries: Yes: Angiogram, Angioplasty (01/24/18 2 stents), Cardiac Catheterization, Other. No: Pacemaker Amputation: No Fractures: Yes (LEFT ANKLE) - *Social History Smoking Status: Former smoker Tobacco Type: cigarettes # Packs/Day (cigarettes): 1 #Yrs smoked (if former smoker): 50 Alcohol Intake: former Alcohol Intake Frequency:: 0-2 drinks per day Substance Use Type: denies use *Occupational Status:: retired Housing: house Household Members: spouse *Travel in the last 8 weeks: None Family Hx:: No significant family history Review of Systems - Review of Systems Review of systems:: pertinent systems reviewed and negative unless documented below Meds Home Medications Medication Instructions Recorded Confirmed Type Nebivolol HCl [Bystolic] 5 mg PO DAILY #30 tab 01/27/18 03/17/21 Rx Rivaroxaban [Xarelto 20mg Tablet*] 20 mg PO DAILY #30 tab 01/27/18 03/17/21 Rx Clopidogrel Bisulfate [Plavix 75mg 75 mg PO DAILY 01/28/18 03/16/21 History Tab] lisinopril 10 mg tablet 10 mg PO DAILY tab 12/22/20 03/17/21 History Rosuvastatin Calcium 10 mg PO DAILY 03/16/21 03/17/21 History Colchicine 0.6 mg PO DAILY 03/17/21 03/17/21 History Allergies Allergy/AdvReac Type Severity Reaction Status Date / Time No Known Allergies Allergy Verified 12/22/20 14:09 Exam Vital signs and Labs for Last 24 Hours: Temp Pulse Resp BP Pulse Ox 98.3 F 42 L 16 100/36 L 98 03/17/21 04:00 03/17/21 04:00 03/17/21 04:00 03/17/21 04:00 03/17/21 04:00 Laboratory Results - last 24 hr 03/16/21 15:00: WBC 8.9, RBC 3.76 L, Hgb 11.7 L, Hct 36.0 L, MCV 95.8 H, MCH 31.2, MCHC 32.6, RDW 13.5, Plt Count 215, MPV 8.7, Neut % (Auto) 81.3 H, Lymph % (Auto) 7.4 L, [place] % (Auto) 10.7 H, Eos % (Auto) 0.1, Baso % (Auto) 0.5, Neut # (Auto) 7.2, Lymph # (Auto) 0.7, [place] # (Auto) 1.0, Eos # (Auto) 0.0, Baso # (Auto) 0.0 03/16/21 15:00: Sodium 135 L, Potassium 4.5, Chloride 101, Carbon Dioxide 25, Anion Gap 13.5, BUN 24 H, Creatinine 1.70 H, Estimated Creat Clear 38, Estimated GFR 39 L, Est GFR ( Amer) 47 L, Glucose 106 H, Calcium 9.1, Total Bilirubin 1.4 H, AST 77 H, ALT 47, Alkaline Phosphatase 101, Troponin I 0.04 H, NT-Pro-B Natriuret Pep 5940 H, Total Protein 7.7, Albumin 4.2, Globulin 3.5 H, Albumin/Globulin Ratio 1.2, Lipase 70 03/16/21 15:00: SARS-CoV-2 (PCR) Not detected, Influenza A Untype (PCR) Not detected, Influenza Type B (PCR) Not detected 03/16/21 15:00: Lactate
--- NOTE | 2021-03-17 07:29 | HMH.PHAVTE ---
[facility] Pharmacy VTE Monitoring - Patient Demographics Admission date: 03/16/21 Report Date: 03/17/21 Time: 07:29 Allergies/Adverse Reactions: Patient Allergies No Known Allergies Allergy (Verified 12/22/20 14:09) Height: 1.78 m Weight: 85.814 kg Patient Problems: Current Active Problems Elevated troponin I level (Acute) Elevated brain natriuretic peptide (BNP) level (Acute) RLL pneumonia (Acute) Acute respiratory failure with hypoxia (Acute) - VTE Risk Labs: VTE Related Lab Results Hgb 11.5 g/dL (14.1-18.0) L 03/17/21 06:09 Hct 35.9 % (42.0-52.0) L 03/17/21 06:09 Plt Count 198 K/mm3 (142-424) 03/17/21 06:09 BUN 33 mg/dl (9-20) H D 03/17/21 06:09 Creatinine 2.30 mg/dl (0.66-1.25) H D 03/17/21 06:09 Estimated Creat Clear 31 mL/min (50-200) 03/17/21 06:09 Clinical Trial Participant: No - Prophylaxis VTE Prophylaxis Ordered?: Yes Types of VTE Prophylaxis: IPCS Knee High, Pharmacological Pharmacologic Type: Enoxaparin
--- NOTE | 2021-03-17 07:33 | HMH.PHAINT ---
verified home medication list using list from [facility]
[2021-03-17 08:00] VITALS: BP 130/54; PULSE 50; RESP 20; O2SAT 95
[2021-03-17 12:00] VITALS: BP 144/71; PULSE 37; PULSE 43; RESP 18; O2SAT 95
--- NOTE | 2021-03-17 12:45 | ECG_ITS ---
APPROVED REPORT Exam: Resting ECG HR:43 bpm ECG Measurements Heart Rate 43 AXES QRSd 88 QRS -36 QT 536 T 3 QTc 452 Conclusion Atrial fibrillation with slow ventricular response Left axis deviation Septal infarct, age undetermined ST & T wave abnormality, consider lateral ischemia or digitalis effect Abnormal ECG Electronically signed by : Lowell Dyer MD 03/17/2021 20:32:41
[2021-03-17 13:59] LABS: Microscopic, Urine URINE MICROSCOPIC (MICROSCOPIC)
[2021-03-17 14:02] LABS: Appearance,Urine SL CLOUDY (Clear); Bilirubin,Urine Negative (Negative); Blood, Urine TRACE-L (Negative); Color,Urine YELLOW (Yellow); Glucose,Urine (UA) Negative (Negative); Ketones,Urine Negative (Negative); Leukocyte Esterase,Urine Negative (Negative); Nitrate,Urine Negative (Negative); Protein,Urine Negative (Negative); Specific Gravity, Urine 1.025 (1.005-1.030); Urobilinogen,Urine 0.2 EU/dl (0.2)
[2021-03-17 14:15] LABS: RBC,Urine Occasional #/hpf (0-3)
[2021-03-17 14:16] LABS: Bacteria,Urine 4+ /lpf; Mucus,Urine 1+ /lpf; Squamous Epithelial Cell,Urine Occasional #/hpf (0-5)
[2021-03-17 16:00] VITALS: BP 138/71; PULSE 50; RESP 20; TEMP 36.4; O2SAT 94
--- NOTE | 2021-03-17 17:11 | CA_ITS ---
APPROVED REPORT EXAM: Comprehensive 2D, Doppler, and color-flow Echocardiogram Wireline Operator: Zelda Jaquez CRT Ht: 5 ft 10 in Wt: 189lbs BSA: 2.04 BP: 149/55 mmHg Indications: Atrial Fibrillation, PAD, stents, HTN, SOB 2D Dimensions LVOT 1.50 cm (M/F) 1.5-2.5 LA Volume 77.30 mL LA Volume Index 38.158126 mL/m2 (M/F) 16-34 M-Mode Dimensions RVDd 2.67 cm (0.9-2.6) LA Diam 5.45 cm (1.9-4.0) LVDd 4.71 cm (3.5-5.7) Ao Diam 3.46 cm (2.0-3.7) LVDs 2.33 cm (3.5-5.7) IVSd 1.81 cm (0.6-1.1) PWd 1.47 cm (0.6-1.1) EF (Teich) 81.80% FS 50.50% EDV (Teich) 102.90 mL TAPSE 2.39 (<1.7) ESV (Teich) 18.70 mL LV Diastology E Decel Time 150.00 (160-240 msec) E/A Ratio 2.69 MED E' 9.70 (< 7 cm/sec) MED A' 2.70 cm/s E'/MED E' Ratio 12.61 (>14) LAT E' 12.00 (<10 cm/sec) LAT A' 3.10 cm/s E/LAT E' Ratio 10.19 (>14) Aortic Valve LVOT Max 155.00 (70-110 cm/s) LVOT VTI 41.92 cm AoV Peak Chalo. 322.00 (50-130 cm/s) AI PHT 702.00 ms AO Peak GR. 41.70 mmHg AO Mean GR. 28.30 (<5 mmHg) AO VTI 98.32 (18-25 cm) SAUL (VTI) 0.75 (2.5-4.5 cm2) Mitral Valve MV E Max Chalo. 122.00 (40-130 cm/s) MV A Velocity 45.00 (40-130 cm/s) E/A Ratio 2.69 MV Decel. Time 150.00 (160-240 ms) MV PHT 44.00 ms Pulmonary Valve PV Peak Velocity 168.00 (50-150 cm/s) Tricuspid Valve TR P. Velocity 292.00 cm/s RAP Estimate 10.00 mmHg RVSP 44.20 mmHg Left Ventricle Left atrium is markedly enlarged, left ventricle is normal size, mild concentric left ventricular hypertrophy, visually estimated ejection fraction 55% with no regional wall motion abnormality. Diastolic parameters are inconclusive. Right Ventricle Right atrium and right ventricle moderately enlarged with normal contractility. Aortic Valve Aortic valve is thickened and calcified with restriction in the leaflet mobility, the mean gradient across aortic valve is 36 mmHg, valve area is 1.2 cm??? represents moderate aortic stenosis, there is mild aortic insufficiency. Mitral Valve Mitral valve has mitral annular calcification, leaflets are minimally thickened. There is no mitral stenosis, there is mild mitral regurgitation. Tricuspid Valve Tricuspid valve is grossly normal, there is mild tricuspid regurgitation, tricuspid regurgitation jet velocity is inadequate for calculation of the right ventricular systolic pressure. Pulmonic Valve Pulmonic valve is poorly visualized. Great Vessels Aortic root is normal size. Inferior vena cava is not well visualized. Pericardium Small pericardial effusion noted. Conclusion 1. Biatrial enlargement as described above, normal left ventricular size, mild concentric left ventricular hypertrophy, visually estimated ejection fraction 55% with no regional wall motion abnormality, diastolic parameters are inconclusive. 2. Thickened and calcified aortic valve with mean gradient across valve of 36 mmHg, valve area 1.2 cm represents moderate aortic stenosis, there is mild aortic insufficiency. 3. Moderately enlarged right ventricle with normal contractility. 4. Mild mitral and tricuspid regurgitation. 5. Small pericardial effusion noted. Electronically signed by : Sandro Luna MD 03/18/2021 10:05:25
[2021-03-17 18:45] LABS: Anion Gap 15.3 mEq/L (5-15); Blood Urea Nitrogen 32 mg/dl (9-20); Calcium 8.9 mg/dl (8.4-10.2); Carbon Dioxide 24 mmol/L (22.0-30.0); Chloride 105 mmol/L (98-107); Creatinine Clearance Estimated 37 mL/min (50-200); Estimated Glomerular Filt Rate 34 ml/min (>60); GFR (African American) 41 ML/MIN (>60); Glucose 142 mg/dl (74-100); Potassium 4.3 mmoL/L (3.5-5.1); Sodium 140 mmol/L (136-145)
--- NOTE | 2021-03-17 19:26 | PC.NURSE ---
LATE ENTRY: 1231-notified MD Grant of pt maintaining a heart rate between 25-40bpm. Pt was asymptomatic the entire time.0900 coreg was held d/t this as well. 1241- Spoke to MD Grant, EKG ordered 1249- ekg results sent to MD Grant, afib w/ SVR. NNO.
[2021-03-17 20:00] VITALS: BP 127/72; PULSE 60; PULSE 69; RESP 20; TEMP 36.5; O2SAT 94
--- NOTE | 2021-03-17 23:46 | PC.NURSE ---
Eliza De Santiago called from lab with a preliminary gram + blood culture of the staph species at 1200 Patient name and where verified x2. on notified at [id number]
[2021-03-18] VITALS: BP 127/72; PULSE 59; PULSE 70; RESP 18; TEMP 36.6; O2SAT 96
[2021-03-18 00:34] VITALS: O2SAT 96
[2021-03-18 03:56] VITALS: BP 149/69; PULSE 66; RESP 18; TEMP 36.6; O2SAT 94
--- NOTE | 2021-03-18 04:16 | PC.NURSE ---
Patient is alert and oriented x4. He has had no complaints this RN's shift. Patient is SL after 1L of fluids had been infused per MD orders. Patient has been on room air this whole shift, with no episodes of saturation below 90%. No acute changes noted this shift. VSS, call light within reach, will continue to monitor.
[2021-03-18 05:00] VITALS: BMI 27.0
[2021-03-18 06:25] LABS: Basophils % 0.5 % (0.1-2.0); Eosinophils # 0.2 K/mm3 (0.0-0.4); Eosinophils % 1.9 % (0.1-12.0); Hematocrit 34.3 % (42.0-52.0); Hemoglobin 10.8 g/dL (14.1-18.0); Lymphocytes # 0.9 K/mm3 (0.7-4.5); Lymphocytes % 10.9 % (10-50); Mean Corpuscular HGB Conc 31.5 g/dL (31.8-35.4); Mean Corpuscular Hemoglobin 30.8 pg (27.0-31.2); Mean Corpuscular Volume 97.6 fl (80-94); Mean Platelet Volume 7.5 fl (7.4-10.4); Monocytes # 0.6 K/mm3 (0.1-1.0); Monocytes % 7.5 % (1.7-9.3); Neutrophils # 6.6 K/mm3 (1.8-7.8); Neutrophils % 79.2 % (37.0-80.0); Platelet Count 220 K/mm3 (142-424); Red Blood Count 3.51 M/mm3 (4.60-6.20); Red Cell Distribution Width 13.1 % (11.5-17.5); White Blood Count 8.4 K/mm3 (4.8-10.8)
[2021-03-18 06:36] LABS: Alanine Aminotransferase 39 U/L (12-78); Albumin Level 3.3 g/dl (3.5-5.0); Alkaline Phosphatase 88 U/L (38-126); Anion Gap 15.5 mEq/L (5-15); Aspartate Amino Transferase 59 U/L (17-59); Bilirubin,Total 0.8 mg/dl (0.2-1.3); Blood Urea Nitrogen 26 mg/dl (9-20); Calcium 8.7 mg/dl (8.4-10.2); Carbon Dioxide 22 mmol/L (22.0-30.0); Chloride 108 mmol/L (98-107); Creatinine Clearance Estimated 44 mL/min (50-200); Estimated Glomerular Filt Rate 42 ml/min (>60); GFR (African American) 50 ML/MIN (>60); Globulin 3.2 g/dL (1.3-3.2); Glucose 92 mg/dl (74-100); Magnesium 2.1 mg/dl (1.6-2.3); Potassium 4.5 mmoL/L (3.5-5.1); Sodium 141 mmol/L (136-145); Total Protein,Serum 6.5 g/dl (6.3-8.2)
--- NOTE | 2021-03-18 06:59 | HMH.DCSUM ---
General - General Admission date:: 03/16/21 Discharge date: 03/18/21 HPI HPI: Mr. Hess is an 80yo M evaluated for shortness of breath and general malaise in the ER yesterday. He presented due to worsening shortness of breath and cough. On initial presentation found to have oxygen requirement given saturations in the high 80s on room air. Started on oxygen, chest imaging and labs obtained. Work-up remarkable for normal white cell count, kidney function at baseline creatinine 1.7. Elevation in his BNP, and chest imaging positive for focal right lower lobe consolidation. Admitted for management of pneumonia and possible CHF exacerbation. Given a dose of Lasix in the ER. Had minimal urine output per his report. On assessment this morning, he is pleasant but continuing to require oxygen. Reviewed labs from this morning, creatinine has gone up to 2.3 after diuresis with poor response to diuretic. He has had no IV fluids running. Denies chest pain, nausea, vomiting, fever. Still has harsh mildly productive cough. Hospital Course Hospital Course: 80-year-old male admitted for right lower lobe community-acquired pneumonia. Had new onset oxygen requirement. Tolerated initiation of treatment well. Developed DEEPAK shortly after admission however given concern for CHF on admission and diuresis. Kidney function resolved and normalized after changing course and providing fluid resuscitation. Patient remained afebrile during hospitalization. Tolerating good p.o. intake. Oxygen requirement decreased but still requiring 1 L on day of discharge. Completed 3-day course of 500 mg azithromycin. Received 3 days of ceftriaxone. Will complete 4 more days of oral Omnicef as an outpatient. Plan for close follow-up in our office. Denies any chest pain, nausea, vomiting, confusion. Still has a bit of a harsh cough. Examined on day of discharge. Medically stable for discharge home Objective Vital signs: Temp Pulse Resp BP Pulse Ox 98 F 66 18 149/69 H 94 L 03/18/21 03:56 03/18/21 03:56 03/18/21 03:56 03/18/21 03:56 03/18/21 03:56 Narrative: - Constitutional NAD - *Routine HEENT Exam Head: Present: normocephalic Eye: Present: EOMI, PERRL ENT: Present: mucous membranes moist - *Routine Neck Exam Present: supple. Absent: lymphadenopathy - *Routine Respiratory Exam Present: rhonchi that clear with cough. No crackles. no significant wheeze; Good air movement bilaterally - *Routine Cardiovascular Exam Present: RRR - *Routine Abdominal Exam Present: soft, normoactive bowel sounds. Absent: tenderness - *Routine Extremities Exam Absent: cyanosis, clubbing, edema - *Routine Skin Exam Present: warm. Absent: rash - *Routine Neurological Exam Present: alert, oriented X3 Results Labs on day of discharge: Labs from last 24 hours 03/18/21 03/18/21 03/17/21 05:49 05:49 18:22 WBC 8.4 RBC 3.51 L Hgb 10.8 L Hct 34.3 L MCV 97.6 H MCH 30.8 MCHC 31.5 L RDW 13.1 Plt Count 220 MPV 7.5 Neut % (Auto) 79.2 Lymph % (Auto) 10.9 [place] % (Auto) 7.5 Eos % (Auto) 1.9 Baso % (Auto) 0.5 Neut # (Auto) 6.6 Lymph # (Auto) 0.9 [place] # (Auto) 0.6 Eos # (Auto) 0.2 Baso # (Auto) 0.0 Sodium 141 140 Potassium 4.5 4.3 Chloride 108 H 105 Carbon Dioxide 22 24 Anion Gap 15.5 H 15.3 H BUN 26 H 32 H Creatinine 1.60 H 1.90 H Estimated Creat Clear 44 37 Estimated GFR 42 L 34 L Est GFR ( Amer) 50 L D 41 L D Glucose 92 D 142 H D Calcium 8.7 8.9 Magnesium 2.1 Total Bilirubin 0.8 AST 59 ALT 39 Alkaline Phosphatase 88 Total Protein 6.5 Albumin 3.3 L Globulin 3.2 Albumin/Globulin Ratio 1.0 L Triglycerides Cholesterol LDL Cholesterol Direct VLDL Cholesterol HDL Cholesterol Cholesterol/HDL Ratio Urine Color Urine Appearance Urine pH Ur Spec
[2021-03-18 07:25] VITALS: BP 138/62; PULSE 58; RESP 17; TEMP 36.8; O2SAT 96
[2021-03-18 08:00] VITALS: PULSE 46; O2SAT 96
[2021-03-18 12:00] VITALS: BP 142/62; PULSE 64; RESP 19; TEMP 36.7; O2SAT 97
== END 2021-03-18 14:15 | disposition home or self-care (01) | DRG 291 ==
LOC: ER 16:22 → 2ND 03-17 07:20
PROVIDERS: Admitting Provider Internal Medicine Adolescent Medicine; Emergency Provider Family Medicine; PCP Internal Medicine Adolescent Medicine; Visit Provider Internal Medicine Adolescent Medicine
DX: I13.0 Hypertensive heart and chronic kidney disease with heart failure and stage 1 through stage 4 chronic kidney disease, or unspecified chronic kidney disease (principal); J18.9 Pneumonia, unspecified organism; J96.01 Acute respiratory failure with hypoxia; I48.91 Unspecified atrial fibrillation; Z20.822 Contact with and (suspected) exposure to COVID-19; I50.9 Heart failure, unspecified; N18.9 Chronic kidney disease, unspecified
CPT/HCPCS: 36415; 70450; 71045; 80048; 80053; 80061; 81001; 83605; 83690; 83735; 83880; 84484; 85025; 87040; 87077; 87086; 87186; 93005; 93306; 96365; 96366; 99284; C9803; J0456; U0003; U0005

== ENCOUNTER → 2021-08-05 11:20 | Outpatient (CLI) | payer MEDICARE, OTHER, SELFPAY ==
--- NOTE | 2021-08-05 11:25 | XR_ITS ---
FINAL REPORT CLINICAL HISTORY: COUGH COMPARISON: March 16, 2021 FINDINGS: Two views of the chest were obtained. The heart size and pulmonary vascularity are within normal limits. The mediastinum is normal. There is been interval resolution of the right lung base opacities. No acute pulmonary abnormality is identified. There is a new, small left pleural effusion. There is no pneumothorax. The bony thorax is intact. IMPRESSION: Interval resolution of right lung base opacities. New, small left pleural effusion. Reviewed, Interpreted and Dictated by Leo Wan III, MD Transcribed by Stefanie Chavez Authenticated by Leo Wan III, MD on 08/05/2021 12:12:[address] [facility]
== END ==
PROVIDERS: PCP Internal Medicine Adolescent Medicine; Visit Provider Internal Medicine Adolescent Medicine
DX: R05.9 Cough, unspecified (principal)
CPT/HCPCS: 71046

== ENCOUNTER 2021-09-28 09:34 | Emergency (ER) | payer MEDICARE, OTHER, SELFPAY ==
[2021-09-28 09:52] VITALS: BP 165/83; PULSE 70; RESP 21; O2SAT 98
[2021-09-28 09:55] VITALS: BP 165/83; PULSE 81; RESP 17; TEMP 36.7; O2SAT 97; BMI 24.5
--- NOTE | 2021-09-28 10:01 | HMH.EDGENADL ---
ED Disposition Clinical Impression: Gastroenteritis, Renal insufficiency Disposition: Home, Self-Care Condition on Discharge: Good Instructions: Chronic Kidney Disease, DI for Diarrhea and Traveler's Diarrhea -- Adult, DI for Nausea -- Adult Additional Instructions: follow up pcp 1 week Prescriptions: Ondansetron [Zofran 4mg ODT] 4 mg PO TIDP PRN #15 tab PRN Reason: Nausea And Vomiting Transmission Status: Received by [id number] Referrals: Lowell Dyer MD [Primary Care Provider] - - Critical Care Critical Care Time: No Attestation: On , the high probability of a clinically significant, sudden or life threatening deterioration of the following system(s) required my full and direct attention, intervention and personal management. The time I documented below is in addition to time spent performing reported procedures but includes the following listed in this critical care notation. Medical Decision Making - Medical Records Medical records reviewed: Yes: I reviewed the patient's medical records. - Ethan Inquiry Pt receiving controlled substance: No Vital Signs: 09/28/21 09:52 09/28/21 09:55 09/28/21 10:50 Temperature 98.1 F Temperature Source Oral Pulse Rate 70 58 L Pulse Rate [Left Radial] 81 Respiratory Rate 21 17 18 Blood Pressure 165/83 H 159/66 H Blood Pressure [Right Arm] 165/83 H Blood Pressure Mean 114 Blood Pressure Mean [Right Arm] 110 Blood Pressure Source Automatic Cuff Blood Pressure Position Sitting 02 Sat by Pulse Oximetry 98 97 96 Oxygen Delivery Method Room Air - Lab Data Lab Results 09/28/21 09:52: WBC 5.5, RBC 5.01, Hgb 15.5, Hct 49.2, MCV 98.1 H, MCH 31.0, MCHC 31.6 L, RDW 14.8, Plt Count 232, MPV 8.4, Neut % (Auto) 69.5, Lymph % (Auto) 16.5, [place] % (Auto) 13.4 H, Eos % (Auto) 0.3, Baso % (Auto) 0.4, Neut # (Auto) 3.8, Lymph # (Auto) 0.9, Pender # (Auto) 0.7, Eos # (Auto) 0.0, Baso # (Auto) 0.0 09/28/21 09:52: Sodium 137, Potassium 4.9, Chloride 105, Carbon Dioxide 19 L, Anion Gap 17.9 H, BUN 30 H, Creatinine 2.30 H, Estimated Creat Clear 28, Estimated GFR 27 L, Est GFR ( Amer) 33 L, Glucose 121 H, Calcium 9.7, Total Bilirubin 1.2, AST 49, ALT 29, Alkaline Phosphatase 100, Total Protein 9.2 H D, Albumin 5.1 H, Globulin 4.1 H, Albumin/Globulin Ratio 1.2 Result diagrams: 09/28/21 09:52 09/28/21 09:52 Orders (Tests/Meds): ED MEDICATIONS Generic Name Dose Route Start Last Admin Trade Name Freq PRN Reason Stop Dose Admin Sodium Chloride 500 mls @ 500 mls/hr 09/28/21 10:30 09/28/21 11:18 Sod Chloride 0.9% 500ml Bag IV 10/28/21 10:29 500 mls/hr .Q1H LENCHO Administration Discontinued Medications Generic Name Dose Route Start Last Admin Trade Name Freq PRN Reason Stop Dose Admin Ondansetron HCl 8 mg 09/28/21 09:55 09/28/21 10:06 Ondansetron 4mg/2ml Vial IV 09/28/21 09:56 8 mg ONCE ONE Administration Medical Decision Narrative: 1053 reeval, vss, appears well w/o complaint, ok with plan to rx a nd f/u pcp General Adult HPI - General Stated complaint: vomiting, diarrhea, chills, fever Time Seen by Provider: 09/28/21 10:01 - History of Present Illness HPI narrative: n/v/d few days denies abd pain Onset (ago): day(s) Severity: moderate Quality: other (watery) Relieving factors: none Exacerbating factors: eating Associated symptoms: denies other symptoms - Related Data Home Medications Medication Instructions Recorded Confirmed Clopidogrel Bisulfate [Plavix 75mg 75 mg PO DAILY 01/28/18 05/18/21 Tab] lisinopril 10 mg tablet 10 mg PO DAILY tab 05/18/21 05/18/21 Previous Rx's Medication Instructions Recorded Rivaroxaban [Xarelto 20mg Tablet*] 20 mg PO DAILY #30 tab 01/27/18 rosuvastatin 10 mg tablet See Rx Instructions .ROUTE 09/21/21 .COMPLEX #90 tablet Ondansetron [Zofran 4mg ODT] 4 mg PO TIDP PRN #15 tab 09/28/21 Allergies Allergy/AdvReac Type Severi
[2021-09-28 10:03] LABS: Basophils % 0.4 % (0.1-2.0); Eosinophils % 0.3 % (0.1-12.0); Hematocrit 49.2 % (42.0-52.0); Hemoglobin 15.5 g/dL (14.1-18.0); Lymphocytes # 0.9 K/mm3 (0.7-4.5); Lymphocytes % 16.5 % (10-50); Mean Corpuscular HGB Conc 31.6 g/dL (31.8-35.4); Mean Corpuscular Volume 98.1 fl (80-94); Mean Platelet Volume 8.4 fl (7.4-10.4); Monocytes # 0.7 K/mm3 (0.1-1.0); Monocytes % 13.4 % (1.7-9.3); Neutrophils # 3.8 K/mm3 (1.8-7.8); Neutrophils % 69.5 % (37.0-80.0); Platelet Count 232 K/mm3 (142-424); Red Blood Count 5.01 M/mm3 (4.60-6.20); Red Cell Distribution Width 14.8 % (11.5-17.5); White Blood Count 5.5 K/mm3 (4.8-10.8)
[2021-09-28 10:11] LABS: Alanine Aminotransferase 29 U/L (12-78); Albumin Level 5.1 g/dl (3.5-5.0); Albumin/Globulin Ratio 1.2 (1.1-1.8); Alkaline Phosphatase 100 U/L (38-126); Anion Gap 17.9 mEq/L (5-15); Aspartate Amino Transferase 49 U/L (17-59); Bilirubin,Total 1.2 mg/dl (0.2-1.3); Blood Urea Nitrogen 30 mg/dl (9-20); Calcium 9.7 mg/dl (8.4-10.2); Carbon Dioxide 19 mmol/L (22.0-30.0); Chloride 105 mmol/L (98-107); Creatinine Clearance Estimated 28 mL/min (50-200); Estimated Glomerular Filt Rate 27 ml/min (>60); GFR (African American) 33 ML/MIN (>60); Globulin 4.1 g/dL (1.3-3.2); Glucose 121 mg/dl (74-100); Potassium 4.9 mmoL/L (3.5-5.1); Sodium 137 mmol/L (136-145); Total Protein,Serum 9.2 g/dl (6.3-8.2)
[2021-09-28 10:50] VITALS: BP 159/66; PULSE 58; RESP 18; O2SAT 96
--- NOTE | 2021-09-28 11:03 | PC.NURSE ---
rounded on pt at this time, pt states feeling better will continue to monitor
[2021-09-28 12:16] VITALS: BP 124/78; PULSE 74; RESP 17; TEMP 36.9; O2SAT 98
== END 2021-09-28 12:18 | disposition home or self-care (01) ==
PROVIDERS: Emergency Provider Emergency Medicine; PCP Internal Medicine Adolescent Medicine
DX: K52.9 Noninfective gastroenteritis and colitis, unspecified (principal); N28.9 Disorder of kidney and ureter, unspecified; I10 Essential (primary) hypertension; E78.5 Hyperlipidemia, unspecified; I25.2 Old myocardial infarction
CPT/HCPCS: 96374; 80053; 85025; 96360; 96365; 96375; 99284; J2405

== ENCOUNTER → 2021-12-06 12:07 | Outpatient (CLI) | payer MEDICARE, OTHER, SELFPAY ==
--- NOTE | 2021-12-06 12:15 | XR_ITS ---
FINAL REPORT CLINICAL HISTORY: COUGH COMPARISON: August 05, 2021 FINDINGS: Two views of the chest were obtained. The heart size and pulmonary vascularity are within normal limits. The mediastinum is normal. The small left pleural effusion is slightly larger than previous. There is worsening mild left base atelectasis or scarring. There is no pneumothorax. The bony thorax is intact. IMPRESSION: Increase in small left pleural effusion and worsening mild left base atelectasis or scarring. Reviewed, Interpreted and Dictated by Leo Wan III, MD Transcribed by Cathy Paul Authenticated and [facility]
== END ==
PROVIDERS: PCP Internal Medicine Adolescent Medicine; Visit Provider Nurse Practitioner Family
DX: R05.9 Cough, unspecified (principal)
CPT/HCPCS: 71046

== ENCOUNTER → 2022-11-18 08:45 | Outpatient (CLI) | payer MEDICARE, OTHER, SELFPAY | PROVIDERS: PCP Internal Medicine Adolescent Medicine; Visit Provider Physician Assistant | DX: I10 Essential (primary) hypertension (principal); I35.0 Nonrheumatic aortic (valve) stenosis; I35.9 Nonrheumatic aortic valve disorder, unspecified; R01.1 Cardiac murmur, unspecified; I48.20 Chronic atrial fibrillation, unspecified | CPT/HCPCS: 93306 ==

== ENCOUNTER 2023-07-19 13:48 | Inpatient (IN) | payer MEDICARE, OTHER, SELFPAY ==
[2023-07-19] VITALS (31 sets, daily range): BP systolic 81–153; BP diastolic 26–123; PULSE 66–100; RESP 15–20; TEMP 36.1–36.7; O2SAT 88–100; BMI 24.7
--- NOTE | 2023-07-19 14:42 | XR_ITS ---
FINAL REPORT CLINICAL HISTORY: sob COMPARISON: 12/06/2021 FINDINGS: SINGLE-VIEW CHEST The heart size is normal. The mediastinum is normal. There is worsening left base atelectasis or pneumonia with small left effusion. There is no pneumothorax. IMPRESSION: Left base atelectasis or pneumonia with small left effusion. Reviewed, Interpreted and Dictated by Leo Wan III, MD Transcribed by Ana Hansen Authenticated and [facility]
--- NOTE | 2023-07-19 14:45 | ED_ITS ---
Discharge Plan Disposition Patient Disposition: Admitted Prescriptions Prescriptions: No Action clopidogrel 75 mg tablet 75 mg PO DAILY Patient Comments: TAKE 1 TABLET BY MOUTH ONCE DAILY lisinopril 10 mg tablet 10 mg PO DAILY Patient Comments: TAKE 1 TABLET BY MOUTH ONCE DAILY Xarelto 20 mg tablet 20 mg PO DAILY rosuvastatin 10 mg tablet 10 mg PO DAILY Referrals Follow up/Referrals: Lowell Dyer MD [Primary Care Provider] - See instructions Clinical Impressions Clinical Impression: Anemia, Melena, Vomiting Discharge ED Provider: Blaze Gorman General Adult HPI <Blaze Gorman MD - Last Filed: 07/19/23 16:15> General Chief complaint: Nausea/Vomiting/Diarrhea Stated complaint: diarrha, vomiting Time Seen by Provider: 07/19/23 13:57 Mode of Arrival: Wheelchair Source of Information: Patient and Spouse Limitations: No Limitations Description of Symptoms (Recalled from ER Triage Doc. by RN): Patient and spouse report diarrhea and vomiting for x3 days. Denies any fevers. Increased weakness per spouse as well. Patient has not been able to keep any food/drinks down in 3 days. 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 Onset was acute, 3 days ago, dark but no reports of asphalt like or bright red blood. Patient has chronic cough at baseline which is no worse than normal. Patient has associated nausea. Related Data Home Medications Medication Instructions Recorded Confirmed clopidogrel 75 mg tablet 75 mg PO DAILY 07/19/23 07/19/23 lisinopril 10 mg tablet 10 mg PO DAILY 07/19/23 07/19/23 rivaroxaban 20 mg tablet (Xarelto) 20 mg PO DAILY 07/19/23 07/19/23 rosuvastatin 10 mg tablet 10 mg PO DAILY 07/19/23 07/19/23 Allergies Allergy/AdvReac Type Severity Reaction Status Date / Time No Known Allergies Allergy Verified 05/15/23 08:34 PFSH <Blaze Gorman MD - Last Filed: 07/19/23 16:15> [facility] Disclaimer: The information contained in this section may have been updated after the patient was seen, as this information can be updated by other users. Medical History Abnormal cardiac CT angiography Anticoagulant long-term use Aortic stenosis Aortic valve calcification Bilateral carotid bruits Cardiac murmur Claudication Coronary artery calcification Daytime somnolence Decreased stamina HTN (hypertension) Leg pain SOB (shortness of breath) Social History Smoking Status: Never smoker second hand exposure: No alcohol intake: former substance use type: denies use current occupational status: retired Travel in the last 8 weeks: None household members: spouse housing: house current occupational exposures/hazards: No caffeine: Yes <Blaze Gorman MD - Last Filed: 07/19/23 16:15> ROS Obtained: Yes Systems reviewed as appropriate & no additional complaints except as documented Physical Exam <Blaze Gorman MD - Last Filed: 07/19/23 16:15> General General appearance: alert and in no apparent distress Head Head exam: atraumatic and normocephalic Eye Eye exam: Present PERRL and EOMI ENT ENT exam: Present mucous membranes moist Neck Neck exam: Present normal inspection Chest Chest inspection: Present normal inspection and symmetric chest wall rise Respiratory Respiratory exam: Present normal lung sounds bilaterally; Absent respiratory distress Cardiovascular Cardiovascular exam: Present regular rate and normal rhythm Abdominal Exam Abdominal exam: Present soft; Absent tenderness Extremities Exam Extremities exam: Present normal inspection Neurological Exam Neurological exam: Present alert Psychiatric Psychiatric exam: Present normal affect Skin Skin exam: Present warm and dry Medical Decision Making <Blaze Gorman MD - Last Filed: 07/19/23 16:15> Ethan Inquiry Pt receiving controlled substance: No Vital Signs: 07/19/23 14:09 07/19/23 14:30 07/19/23 15:00 Temperature 96.9 F L Temperature Source Rectal Pulse Rate 79 81 Pulse Rate [Right Brachial] 78 Respiratory Rate 20 TAR Vitals Timing Blood Pressure 112/47 L 96/45 L Blood Pressure [Right Arm] 101/50 L Blood Pressure Mean 73 Blood Pressure Mean [Right Arm] 67 Blood Pressure Source [Right Arm] Automatic Cuff Blood Pressure Position [Right Arm] Supine 02 Sat by Pulse Oximetry 88 L 100 99 Oxygen Delivery Method Room Air Room Air 07/19/23 15:32 07/19/23 16:45 07/19/23 16:50 Temperature 97.7 F Temperature Source Pulse Rate 86 86 88 Pulse Rate [Right Brachial] Respiratory Rate 16 16 TAR Vitals Timing Pre-Blood Vitals Start Vitals Blood Pressure 153/123 H 91/41 L 102/26 L Blood Pressure [Right Arm] Blood Pressure Mean 57 51 Blood Pressure Mean [Right Arm] Blood Pressure Source [Right Arm] Blood Pressure Position [Right Arm] 02 Sat by Pulse Oximetry 100 100 100 Oxygen Delivery Method Nasal Cannula 07/19/23 16:55 07/19/23 17:00 07/19/23 17:05 Temperature 97.9 F 97.6 F 97.7 F Temperature Source Oral Pulse Rate 96 H 89 88 Pulse Rate [Right Brachial] Respiratory Rate 16 17 16 TAR Vitals Timing 5 Minute 15 Minute Blood Pressure 91/49 L 89/51 L 89/55 L Blood Pressure [Right Arm] Blood Pressure Mean 63 63 66 Blood Pressure Mean [Right Arm] Blood Pressure Source [Right Arm] Blood Pressure Position [Right Arm] 02 Sat by Pulse Oximetry 100 100 100 Oxygen Delivery Method 07/19/23 16:01 07/19/23 16:30 07/19/23 16:43 Temperature Temperature Source Pulse Rate 89 84 Pulse Rate [Right Brachial] Respiratory Rate TAR Vitals Timing Blood Pressure 84/48 L 89/47 L 91/41 L Blood Pressure [Right Arm] Blood Pressure Mean 60 58 59 Blood Pressure Mean [Right Arm] Blood Pressure Source [Right Arm] Blood Pressure Position [Right Arm] 02 Sat by Pulse Oximetry 98 100 100 Oxygen Delivery Method 07/19/23 16:51 07/19/23 16:57 07/19/23 17:00 Temperature Temperature Source Pulse Rate 84 94 H 85 Pulse Rate [Right Brachial] Respiratory Rate TAR Vitals Timing Blood Pressure 102/26 L 91/49 L 89/51 L Blood Pressure [Right Arm] Blood Pressure Mean 58 57 62 Blood Pressure Mean [Right Arm] Blood Pressure Source [Right Arm] Blood Pressure Position [Right Arm] 02 Sat by Pulse Oximetry 100 100 100 Oxygen Delivery Method 07/19/23 17:05 Temperature Temperature Source Pulse Rate 88 Pulse Rate [Right Brachial] Respiratory Rate TAR Vitals Timing Blood Pressure 89/55 L Blood Pressure [Right Arm] Blood Pressure Mean 63 Blood Pressure Mean [Right Arm] Blood Pressure Source [Right Arm] Blood Pressure Position [Right Arm] 02 Sat by Pulse Oximetry 100 Oxygen Delivery Method Lab Data Lab Results 07/19/23 14:27: WBC 10.7, RBC 2.17 L, Hgb 6.7 L*, Hct 20.5 L*, MCV 94.2 H, MCH 30.9, MCHC 32.8, RDW 17.9 H, Plt Count 304, MPV 8.4, Neut % (Auto) 85.4 H, Lymph % (Auto) 8.3 L, [place] % (Auto) 5.6, Eos % (Auto) 0.3, Baso % (Auto) 0.4, Neut # (Auto) 9.2 H, Lymph # (Auto) 0.9, [place] # (Auto) 0.6, Eos # (Auto) 0.0, Baso # (Auto) 0.0, Total Counted 100, Neutrophils % (Manual) 92 H, Lymphocytes % (Manual) 6 L, Monocytes % (Manual) 2, Platelet Estimate Normal, RBC Morphology Not Reportable, Polychromasia 1+, Anisocytosis 1+, Sodium 140, Potassium 4.6, Chloride 109 H, Carbon Dioxide 18 L, Anion Gap 17.6 H, BUN 47 H, Creatinine 1.80 H, Estimated Creat Clear 34, Estimated GFR 36 L, Est GFR ( Amer) 44 L, Glucose 132 H, Calcium 9.2, Magnesium 1.9, Total Bilirubin 0.4, AST 43, ALT 37, Alkaline Phosphatase 100, Total Protein 6.3 D, Albumin 3.5, Globulin 2.8, Albumin/Globulin Ratio 1.3, Lipase 104 07/19/23 14:53: SARS-CoV-2 (PCR) Not detected, Influenza A Untype (PCR) Not detected, Influenza Type B (PCR) Not detected 07/19/23 15:24: Blood Type B Positive, Antibody Screen Negative, Crossmatch (AHG) See Detail 07/19/23 14:27 07/19/23 14:27 Orders (Tests/Meds): ED MEDICATIONS Generic Name Dose Route Start Last Admin Trade Name Freq PRN Reason Stop Dose Admin Sodium Chloride 250 mls @ 25 mls/hr 07/19/23 15:15 Sod Chlor 0.9% 250ml Bag IV 07/20/23 15:14 .Q10H LENCHO Discontinued Medications Generic Name Dose Route Start Last Admin Trade Name Freq PRN Reason Stop Dose Admin Lactated Ringer's 1,000 mls @ 999 mls/hr 07/19/23 14:41 07/19/23 14:51 Lactated Ringer's 1000 Ml Bag IV 07/19/23 15:41 999 mls/hr .Q1H1M ONE Administration ORDERS Category Date Time Status Transfuse RBC's [Red Blood Cells] Stat BBK 07/19/23 15:24 Completed Type and Screen Stat BBK 07/19/23 15:24 Completed CXR --portable [XR chest portable] Stat Exams 07/19/23 14:42 Completed CBC w/Auto Diff [Complete Blood Count Auto Diff] Stat Lab 07/19/23 14:27 Completed CMP [Comprehensive Metabolic Panel] Stat Lab 07/19/23 14:27 Completed Lipase Stat Lab 07/19/23 14:27 Completed MG [Magnesium] Stat Lab 07/19/23 14:27 Completed Rapid PCR Covid and Flu A/B Stat Lab 07/19/23 14:53 Completed Medical Decision Narrative: In summary patient is a 82-year-old male with past medical history described above presents emergency department for evaluation of vomiting diarrhea. Patient is hemodynamically stable nontoxic-appearing upon arrival, afebrile. Patient has a nonfocal abdominal exam therefore workup with imaging was considered. Differential diagnosis includes viral syndrome, influenza, pancreatitis, among others. Workup will be conducted with hematologic labs, viral swab. Initial interventions include crystalloid bolus, Zofran, p.o. trial. Initial workup reviewed by me, hematologic labs remarkable for significant anemia hemoglobin 6.7, stable CKD, no critical electrolyte abnormalities. Recent hemoglobin is almost 2 years ago with hemoglobin of 15.5. Patient will be given 1 unit PRBCs. I suspect etiology is a lower GI bleed that is acute on chronic. Patient does have history of intermittent dark stools and has had dark stools over the last day however does not have any significant tachycardia, no hypotension and is in no distress to suggest acute hemorrhage that requires emergent surgical intervention at this time. Patient is on anticoagulation and may benefit from delayed endoscopy after it is discontinued for short period of time. Case was discussed with hospital medicine who requested surgical opinion prior to admission. Surgery was contacted and they are in the operating room at this time and will return call after their case is over to discuss. This discussion and subsequent contacting the hospitalist for admission was pending at time of transfer of care to the oncoming physician, Dr. Sanders. <Reji Sanders MD - Last Filed: 07/19/23 17:23> Vital Signs: 07/19/23 14:09 07/19/23 14:30 07/19/23 15:00 Temperature 96.9 F L Temperature Source Rectal Pulse Rate 79 81 Pulse Rate [Right Brachial] 78 Respiratory Rate 20 TAR Vitals Timing Blood Pressure 112/47 L 96/45 L Blood Pressure [Right Arm] 101/50 L Blood Pressure Mean 73 Blood Pressure Mean [Right Arm] 67 Blood Pressure Source [Right Arm] Automatic Cuff Blood Pressure Position [Right Arm] Supine 02 Sat by Pulse Oximetry 88 L 100 99 Oxygen Delivery Method Room Air Room Air 07/19/23 15:32 07/19/23 16:45 07/19/23 16:50 Temperature 97.7 F Temperature Source Pulse Rate 86 86 88 Pulse Rate [Right Brachial] Respiratory Rate 16 16 TAR Vitals Timing Pre-Blood Vitals Start Vitals Blood Pressure 153/123 H 91/41 L 102/26 L Blood Pressure [Right Arm] Blood Pressure Mean 57 51 Blood Pressure Mean [Right Arm] Blood Pressure Source [Right Arm] Blood Pressure Position [Right Arm] 02 Sat by Pulse Oximetry 100 100 100 Oxygen Delivery Method Nasal Cannula 07/19/23 16:55 07/19/23 17:00 07/19/23 17:05 Temperature 97.9 F 97.6 F 97.7 F Temperature Source Oral Pulse Rate 96 H 89 88 Pulse Rate [Right Brachial] Respiratory Rate 16 17 16 TAR Vitals Timing 5 Minute 15 Minute Blood Pressure 91/49 L 89/51 L 89/55 L Blood Pressure [Right Arm] Blood Pressure Mean 63 63 66 Blood Pressure Mean [Right Arm] Blood Pressure Source [Right Arm] Blood Pressure Position [Right Arm] 02 Sat by Pulse Oximetry 100 100 100 Oxygen Delivery Method 07/19/23 16:01 07/19/23 16:30 07/19/23 16:43 Temperature Temperature Source Pulse Rate 89 84 Pulse Rate [Right Brachial] Respiratory Rate TAR Vitals Timing Blood Pressure 84/48 L 89/47 L 91/41 L Blood Pressure [Right Arm] Blood Pressure Mean 60 58 59 Blood Pressure Mean [Right Arm] Blood Pressure Source [Right Arm] Blood Pressure Position [Right Arm] 02 Sat by Pulse Oximetry 98 100 100 Oxygen Delivery Method 07/19/23 16:51 07/19/23 16:57 07/19/23 17:00 Temperature Temperature Source Pulse Rate 84 94 H 85 Pulse Rate [Right Brachial] Respiratory Rate TAR Vitals Timing Blood Pressure 102/26 L 91/49 L 89/51 L Blood Pressure [Right Arm] Blood Pressure Mean 58 57 62 Blood Pressure Mean [Right Arm] Blood Pressure Source [Right Arm] Blood Pressure Position [Right Arm] 02 Sat by Pulse Oximetry 100 100 100 Oxygen Delivery Method 07/19/23 17:05 Temperature Temperature Source Pulse Rate 88 Pulse Rate [Right Brachial] Respiratory Rate TAR Vitals Timing Blood Pressure 89/55 L Blood Pressure [Right Arm] Blood Pressure Mean 63 Blood Pressure Mean [Right Arm] Blood Pressure Source [Right Arm] Blood Pressure Position [Right Arm] 02 Sat by Pulse Oximetry 100 Oxygen Delivery Method Lab Data Lab Results 07/19/23 14:27: WBC 10.7, RBC 2.17 L, Hgb 6.7 L*, Hct 20.5 L*, MCV 94.2 H, MCH 30.9, MCHC 32.8, RDW 17.9 H, Plt Count 304, MPV 8.4, Neut % (Auto) 85.4 H, Lymph % (Auto) 8.3 L, [place] % (Auto) 5.6, Eos % (Auto) 0.3, Baso % (Auto) 0.4, Neut # (Auto) 9.2 H, Lymph # (Auto) 0.9, [place] # (Auto) 0.6, Eos # (Auto) 0.0, Baso # (Auto) 0.0, Total Counted 100, Neutrophils % (Manual) 92 H, Lymphocytes % (Manual) 6 L, Monocytes % (Manual) 2, Platelet Estimate Normal, RBC Morphology Not Reportable, Polychromasia 1+, Anisocytosis 1+, Sodium 140, Potassium 4.6, Chloride 109 H, Carbon Dioxide 18 L, Anion Gap 17.6 H, BUN 47 H, Creatinine 1.80 H, Estimated Creat Clear 34, Estimated GFR 36 L, Est GFR ( Amer) 44 L, Glucose 132 H, Calcium 9.2, Magnesium 1.9, Total Bilirubin 0.4, AST 43, ALT 37, Alkaline Phosphatase 100, Total Protein 6.3 D, Albumin 3.5, Globulin 2.8, Albumin/Globulin Ratio 1.3, Lipase 104 01/17/24 14:53: SARS-CoV-2 (PCR) Not detected, Influenza A Untype (PCR) Not detected, Influenza Type B (PCR) Not detected 07/19/23 15:24: Blood Type B Positive, Antibody Screen Negative, Crossmatch (AHG) See Detail Orders (Tests/Meds): ED MEDICATIONS Generic Name Dose Route Start Last Admin Trade Name Freq PRN Reason Stop Dose Admin Sodium Chloride 250 mls @ 25 mls/hr 07/19/23 15:15 Sod Chlor 0.9% 250ml Bag IV 07/20/23 15:14 .Q10H LENCHO Discontinued Medications Generic Name Dose Route Start Last Admin Trade Name Freq PRN Reason Stop Dose Admin Lactated Ringer's 1,000 mls @ 999 mls/hr 07/19/23 14:41 07/19/23 14:51 Lactated Ringer's 1000 Ml Bag IV 07/19/23 15:41 999 mls/hr .Q1H1M ONE Administration ORDERS Category Date Time Status Transfuse RBC's [Red Blood Cells] Stat BBK 07/19/23 15:24 Completed Type and Screen Stat BBK 07/19/23 15:24 Completed CXR --portable [XR chest portable] Stat Exams 07/19/23 14:42 Completed CBC w/Auto Diff [Complete Blood Count Auto Diff] Stat Lab 07/19/23 14:27 Completed CMP [Comprehensive Metabolic Panel] Stat Lab 07/19/23 14:27 Completed Lipase Stat Lab 07/19/23 14:27 Completed MG [Magnesium] Stat Lab 07/19/23 14:27 Completed Rapid PCR Covid and Flu A/B Stat Lab 07/19/23 14:53 Completed Medical Decision Narrative: In summary patient is a 82-year-old male with past medical history described above presents emergency department for evaluation of vomiting diarrhea. Patient is hemodynamically stable nontoxic-appearing upon arrival, afebrile. Patient has a nonfocal abdominal exam therefore workup with imaging was considered. Differential diagnosis includes viral syndrome, influenza, pancreatitis, among others. Workup will be conducted with hematologic labs, viral swab. Initial interventions include crystalloid bolus, Zofran, p.o. trial. Initial workup reviewed by me, hematologic labs remarkable for significant anemia hemoglobin 6.7, stable CKD, no critical electrolyte abnormalities. Recent hemoglobin is almost 2 years ago with hemoglobin of 15.5. Patient will be given 1 unit PRBCs. I suspect etiology is a lower GI bleed that is acute on chronic. Patient does have history of intermittent dark stools and has had dark stools over the last day however does not have any significant tachycardia, no hypotension and is in no distress to suggest acute hemorrhage that requires emergent surgical intervention at this time. Patient is on anticoagulation and may benefit from delayed endoscopy after it is discontinued for short period of time. Case was discussed with hospital medicine who requested surgical opinion prior to admission. Surgery was contacted and they are in the operating room at this time and will return call after their case is over to discuss. This discussion and subsequent contacting the hospitalist for admission was pending at time of transfer of care to the oncoming physician, Dr. Sanders. Marilyn: I assume primary responsibility for this patient after signout from previous physician. Patient appears well, hemodynamically stable. Transfusion started with crossmatched blood. Surgery was contacted and case was discussed at length, recommended no emergent intervention, but possible nonemergent upper EGD given melena. I agree with this as well as admission for transfusions and monitoring for hemoglobin stabilization. Hospital medicine was contacted and case was discussed at length, see note for recommendations. Because patient high risk for clinical decompensation, deemed appropriate for inpatient admiss ion. Results were relayed to patient who voiced understanding and patient was agreeable to inpatient admission and management. Patient was admitted to the hospital for further definitive management. Critical Care <Blaze Gorman MD - Last Filed: 07/19/23 16:15> Critical Care Time Critical Care Time: No
[2023-07-19] MEDS: LACTATED RINGERS 1000ML 1,000 ML 999 ML IV (14:51)
[2023-07-19 14:52] LABS: Basophils % 0.4 % (0.1-2.0); Eosinophils % 0.3 % (0.1-12.0); Lymphocytes # 0.9 K/mm3 (0.7-4.5); Lymphocytes % 8.3 % (10-50); Mean Corpuscular HGB Conc 32.8 g/dL (31.8-35.4); Mean Corpuscular Hemoglobin 30.9 pg (27.0-31.2); Mean Corpuscular Volume 94.2 fl (80-94); Mean Platelet Volume 8.4 fl (7.4-10.4); Monocytes # 0.6 K/mm3 (0.1-1.0); Monocytes % 5.6 % (1.7-9.3); Neutrophils # 9.2 K/mm3 (1.8-7.8); Neutrophils % 85.4 % (37.0-80.0); Platelet Count 304 K/mm3 (142-424); Red Blood Count 2.17 M/mm3 (4.60-6.20); Red Cell Distribution Width 17.9 % (11.5-17.5); White Blood Count 10.7 K/mm3 (4.8-10.8)
[2023-07-19 14:59] LABS: Alanine Aminotransferase 37 U/L (12-78); Albumin Level 3.5 g/dl (3.5-5.0); Albumin/Globulin Ratio 1.3 (1.1-1.8); Alkaline Phosphatase 100 U/L (38-126); Anion Gap 17.6 mEq/L (5-15); Aspartate Amino Transferase 43 U/L (17-59); Bilirubin,Total 0.4 mg/dl (0.2-1.3); Blood Urea Nitrogen 47 mg/dl (9-20); Calcium 9.2 mg/dl (8.4-10.2); Carbon Dioxide 18 mmol/L (22.0-30.0); Chloride 109 mmol/L (98-107); Creatinine Clearance Estimated 34 mL/min (50-200); Estimated Glomerular Filt Rate 36 ml/min (>60); GFR (African American) 44 ML/MIN (>60); Globulin 2.8 g/dL (1.3-3.2); Glucose 132 mg/dl (74-100); Lipase 104 U/L (23-300); Magnesium 1.9 mg/dl (1.6-2.3); Potassium 4.6 mmoL/L (3.5-5.1); Sodium 140 mmol/L (136-145); Total Protein,Serum 6.3 g/dl (6.3-8.2)
[2023-07-19 15:01] LABS: Coronavirus 19, PCR Not Detected (NotDetected); Influenza A, PCR Not Detected (NotDetected); Influenza B, PCR Not Detected (NotDetected)
[2023-07-19 15:02] LABS: Hematocrit 20.5 % (42.0-52.0)
[2023-07-19 15:03] LABS: Hemoglobin 6.7 g/dL (14.1-18.0); MANUAL DIFFERENTIAL MANUAL DIFFERENTIAL (MANUAL DIFF)
--- NOTE | 2023-07-19 15:03 | PC.NURSE ---
Reported critical lab hgb 6.7, hct 20.5 to .
[2023-07-19 15:13] LABS: Anisocytosis 1+; Lymphocytes % 6 % (10-50); Monocytes % 2 % (2-9); Neutrophils % 92 % (42-76); Platelet Estimate Normal; Polychromasia 1+; Total Cells Counted 100
--- NOTE | 2023-07-19 16:35 | PC.NURSE ---
Dr Holloway called back to speak with Dr Sanders about this pt
--- NOTE | 2023-07-19 17:52 | PC.NURSE ---
arrived by stretcher from ED
--- NOTE | 2023-07-19 18:03 | P.HP_ITS ---
History of Present Illness *Admission Date: 07/19/23 *Reason for visit:: Blood in stool *History of present illness: patient is a 82-year-old female with past medical history of CAD hypertension atrial fibrillation on Xarelto who presents to the hospital due to dark-colored stools. She also had nausea vomiting. She has a history of hemorrhoidectomy in the past. Patient otherwise denied abdominal pain, diarrhea constipation dysuria fevers or chills. Patient was admitted for general surgery evaluation with possible endoscopy and further management. On evaluation patient was found to have hemoglobin 6.7, unknown baseline, last hemoglobin 2021 found to be 15.5 PF[facility] Disclaimer: The information contained in this section may have been updated after the patient was seen, as this information can be updated by other users. Medical History Abnormal cardiac CT angiography Anticoagulant long-term use Aortic stenosis Aortic valve calcification Bilateral carotid bruits Cardiac murmur Claudication Coronary artery calcification Daytime somnolence Decreased stamina HTN (hypertension) Leg pain SOB (shortness of breath) Family History (Updated 07/19/23 @ 17:57 by Hannah Esposito, RN) Other No significant family history Social History (Updated 07/19/23 @ 17:58 by Hannah Esposito RN) Smoking Status: Former smoker tobacco type: cigarettes packs per day: 1 second hand exposure: No alcohol intake: former substance use type: denies use current occupational status: retired Travel in the last 8 weeks: None household members: spouse housing: house current occupational exposures/hazards: No caffeine: Yes Review of Systems Review of Systems Review of systems (narrative): as per [facility] Meds Home Medications and Allergies Home Medications Medication Instructions Recorded Confirmed Type clopidogrel 75 mg tablet 75 mg PO DAILY 07/19/23 07/19/23 History lisinopril 10 mg tablet 10 mg PO DAILY 07/19/23 07/19/23 History rivaroxaban 20 mg tablet (Xarelto) 20 mg PO DAILY 07/19/23 07/19/23 History rosuvastatin 10 mg tablet 10 mg PO DAILY 07/19/23 07/19/23 History New Prescriptions to Start Prescriptions: Allergies Allergy/AdvReac Type Severity Reaction Status Date / Time No Known Allergies Allergy Verified 11/13/23 08:34 Exam Data for Last 24 hours Vital signs and Labs for Last 24 Hours: Temp Pulse Resp BP Pulse Ox O2 Del Method 97.9 F 84 15 92/53 L 100 Nasal Cannula 07/19/23 17:35 07/19/23 17:35 07/19/23 17:35 07/19/23 17:35 07/19/23 17:35 07/19/23 15:32 Laboratory Results - last 24 hr 07/19/23 14:27: WBC 10.7, RBC 2.17 L, Hgb 6.7 L*, Hct 20.5 L*, MCV 94.2 H, MCH 30.9, MCHC 32.8, RDW 17.9 H, Plt Count 304, MPV 8.4, Neut % (Auto) 85.4 H, Lymph % (Auto) 8.3 L, [place] % (Auto) 5.6, Eos % (Auto) 0.3, Baso % (Auto) 0.4, Neut # (Auto) 9.2 H, Lymph # (Auto) 0.9, [place] # (Auto) 0.6, Eos # (Auto) 0.0, Baso # (Auto) 0.0, Total Counted 100, Neutrophils % (Manual) 92 H, Lymphocytes % (Manual) 6 L, Monocytes % (Manual) 2, Platelet Estimate Normal, RBC Morphology Not Reportable, Polychromasia 1+, Anisocytosis 1+, Sodium 140, Potassium 4.6, Chloride 109 H, Carbon Dioxide 18 L, Anion Gap 17.6 H, BUN 47 H, Creatinine 1.80 H, Estimated Creat Clear 34, Estimated GFR 36 L, Est GFR ( Amer) 44 L, Glucose 132 H, Calcium 9.2, Magnesium 1.9, Total Bilirubin 0.4, AST 43, ALT 37, Alkaline Phosphatase 100, Total Protein 6.3 D, Albumin 3.5, Globulin 2.8, Albumin/Globulin Ratio 1.3, Lipase 104 07/19/23 14:53: SARS-CoV-2 (PCR) Not detected, Influenza A Untype (PCR) Not detected, Influenza Type B (PCR) Not detected 07/19/23 15:24: Blood Type B Positive, Antibody Screen Negative, Crossmatch (AHG) See Detail I & O for Last 24 hours: Intake & Output 01/1407/17/23 07/18/23 07/19/23 23:59 23:59 23:59 23:59 Intake Total 0 / 0 Balance 0 / 0 Weight 78.018 kg Constitutional Constitutional: no acute distress *Routine HEENT Exam Head: Present normocephalic Eye: Present EOMI and PERRL ENT: Present mucous membranes moist *Routine Neck Exam Neck: Present supple; Absent lymphadenopathy *Routine Respiratory Exam Respiratory: Present CTA bilaterally *Routine Cardiovascular Exam Cardiovascular: Present RRR *Routine Abdominal Exam Abdominal: Present soft and normoactive bowel sounds; Absent tenderness *Routine Rectal Exam Rectal:: deferred *Routine Genitalia Exam Genitalia:: deferred *Routine Extremities Exam Extremities: Absent cyanosis, clubbing or edema *Routine Skin Exam Skin: Present warm; Absent rash *Routine Neurological Exam Neurological: Present alert and oriented X3 Assessment and Plan *Assessment and plan (1) Melena: Status: Acute Category: Medical Code(s): K92.1 - Melena (2) Vomiting: Status: Acute Category: Medical Code(s): R11.10 - Vomiting, unspecified (3) Renal insufficiency: Status: Acute Category: Medical Code(s): N28.9 - Disorder of kidney and ureter, unspecified (4) HLD (hyperlipidemia): Status: Chronic Qualifiers: Hyperlipidemia type: mixed hyperlipidemia Qualified Code(s): E78.2 - Mixed hyperlipidemia Category: Medical Code(s): E78.5 - Hyperlipidemia, unspecified (5) PAD (peripheral artery disease): Status: Chronic Category: Medical Code(s): I73.9 - Peripheral vascular disease, unspecified (6) Atrial fibrillation: Status: Chronic Qualifiers: Atrial fibrillation type: chronic Qualified Code(s): I48.2 - Chronic atrial fibrillation Category: Medical Code(s): I48.91 - Unspecified atrial fibrillation (7) HTN (hypertension): Status: Chronic Qualifiers: Hypertension type: essential hypertension Qualified Code(s): I10 - Essential (primary) hypertension Category: Medical Code(s): I10 - Essential (primary) hypertension (8) Acute anemia: Status: Acute Category: Medical Code(s): D64.9 - Anemia, unspecified Plan patient is a 82-year-old female with past medical history of CAD hypertension atrial fibrillation on Xarelto who presents to the hospital due to dark-colored stools. She also had nausea vomiting. She has a history of hemorrhoidectomy in the past. Patient otherwise denied abdominal pain, diarrhea constipation dysuria fevers or chills. Patient was admitted for general surgery evaluation with possible endoscopy and further management. On evaluation patient was found to have hemoglobin 6.7, unknown baseline, last hemoglobin 2021 found to be 15.5. Assessment Acute anemia of blood loss GI bleed CKD stage III CAD Hypertension Hyperlipidemia Atrial fibrillation on Xarelto Plan Hold antiplatelets, anticoagulants Monitor H&H IV fluids IV PPI Consult general surgery Check iron levels Monitor and replace electrolytes Hold home aspirin Plavix, Xarelto DVT prophylaxis-SCDs only
[2023-07-19] MEDS: 0.9 % SODIUM CHLORIDE 1000ML 1,000 ML 50 ML IV (20:00)
[2023-07-19 20:52] LABS: Hematocrit 20.9 % (42.0-52.0)
[2023-07-19] MEDS: PANTOPRAZOLE 40MG VIAL 40 MG IV (21:06)
[2023-07-19] MEDS: SODIUM CHLORIDE 0.9% 10ML VIAL 10 ML IV (21:06)
[2023-07-19] MEDS: ATORVASTATIN 20MG TABLET 20 MG PO (21:06)
[2023-07-19] MEDS: 0.9 % SODIUM CHLORIDE 250 ML 25 ML IV (22:05)
[2023-07-19 23:05] LABS: Occult Blood,Stool Positive (Negative)
[2023-07-20] VITALS (25 sets, daily range): BP systolic 76–125; BP diastolic 44–73; PULSE 68–103; RESP 14–18; TEMP 36.2–36.8; O2SAT 90–99; BMI 24.6
[2023-07-20 02:07] LABS: Hematocrit 23.8 % (42.0-52.0)
--- NOTE | 2023-07-20 05:46 | PC.NURSE ---
at the beginning of the shift, blood was still infusing - infusion finished at 1950 - post h&h obtained. hospitalist ordered another unit, unit infused, post h&h obtained with hgb 8. Both bags infused without complications. in between infusion, pt had a small black, bloody, foul stool - which was sent to lab for occult stool (resulted +). at 07/20 0530 pt had a very large black, bloody, foul smelling stool. patient denies any pain, soa, cp, or other complications t/o shift. he has remained on room air despite the wifes suggestions that he needs oxygen , was looking at HR on monitor and not the O2 sensor - she was educated on which was which, and verbalized understanding as to why I didn't apply oxygen. patient oxygen has remained <90% all night.
[2023-07-20 06:26] LABS: Basophils % 0.2 % (0.1-2.0); Hematocrit 26.4 % (42.0-52.0); Hemoglobin 8.8 g/dL (14.1-18.0); Lymphocytes # 1.2 K/mm3 (0.7-4.5); Lymphocytes % 11.4 % (10-50); Mean Corpuscular HGB Conc 33.5 g/dL (31.8-35.4); Mean Corpuscular Hemoglobin 29.5 pg (27.0-31.2); Mean Corpuscular Volume 88.1 fl (80-94); Monocytes % 9.7 % (1.7-9.3); Neutrophils # 8.3 K/mm3 (1.8-7.8); Neutrophils % 78.6 % (37.0-80.0); Platelet Count 274 K/mm3 (142-424); Red Cell Distribution Width 19.1 % (11.5-17.5); White Blood Count 10.5 K/mm3 (4.8-10.8)
[2023-07-20 06:44] LABS: Blood Urea Nitrogen 53 mg/dl (9-20); Calcium 8.7 mg/dl (8.4-10.2); Carbon Dioxide 22 mmol/L (22.0-30.0); Chloride 108 mmol/L (98-107); Creatinine Clearance Estimated 31 mL/min (50-200); Estimated Glomerular Filt Rate 32 ml/min (>60); GFR (African American) 39 ML/MIN (>60); Glucose 104 mg/dl (74-100); Magnesium 1.9 mg/dl (1.6-2.3); Sodium 139 mmol/L (136-145)
[2023-07-20 06:58] LABS: Anion Gap 13.7 mEq/L (5-15); Potassium 4.7 mmoL/L (3.5-5.1)
--- NOTE | 2023-07-20 07:06 | P.CONS_ITS ---
History of Present Illness *Admission Date: 07/19/23 *Reason for visit:: Anemia *History of present illness: This is an 82-year-old gentleman seen in consultation from the primary service for evaluation regarding gastrointestinal hemorrhage. He presented to the emergency department yesterday with intermittent nausea/vomiting. He describes 2 or 3 weeks of dark stool . No hematemesis. He does not currently report recent bright red blood per rectum. Initial hemoglobin 6.7 in emergency department (now 8.8 after transfusion of 2 units packed red blood cells). Forwarded from admission H&P: patient is a 82-year-old female with past medical history of CAD hypertension atrial fibrillation on Xarelto who presents to the hospital due to dark-colored stools. She also had nausea vomiting. She has a history of hemorrhoidectomy in the past. Patient otherwise denied abdominal pain, diarrhea constipation dysuria fevers or chills. Patient was admitted for general surgery evaluation with possible endoscopy and further management. On evaluation patient was found to have hemoglobin 6.7, unknown baseline, last hemoglobin 2021 [facility] to be 15.5 [facility] Disclaimer: The information contained in this section may have been updated after the patient was seen, as this information can be updated by other users. Medical History Abnormal cardiac CT angiography Anticoagulant long-term use Aortic stenosis Aortic valve calcification Bilateral carotid bruits Cardiac murmur Claudication Coronary artery calcification Daytime somnolence Decreased stamina HTN (hypertension) Leg pain SOB (shortness of breath) Family History (Updated 07/19/23 @ 17:57 by Hannah Esposito RN) No significant family history Social History (Updated 07/19/23 @ 17:58 by Hannah Esposito RN) Smoking Status: Former smoker tobacco type: cigarettes packs per day: 1 second hand exposure: No alcohol intake: former substance use type: denies use current occupational status: retired Travel in the last 8 weeks: None household members: spouse housing: house current occupational exposures/hazards: No caffeine: Yes Meds Home Medications and Allergies Home Medications Medication Instructions Recorded Confirmed Type clopidogrel 75 mg tablet 75 mg PO DAILY 07/19/23 07/19/23 History lisinopril 10 mg tablet 10 mg PO DAILY 07/19/23 07/19/23 History rivaroxaban 20 mg tablet (Xarelto) 20 mg PO DAILY 07/19/23 07/19/23 History rosuvastatin 10 mg tablet 10 mg PO DAILY 07/19/23 07/19/23 History New Prescriptions to Start Prescriptions: Allergies Allergy/AdvReac Type Severity Reaction Status Date / Time No Known Allergies Allergy Verified 05/15/23 08:34 Exam (Inpt) Vital signs and Labs for Last 24 Hours: Temp Pulse Resp BP Pulse Ox O2 Del Method 97.9 F 86 17 99/55 L 92 L Room Air 07/20/23 04:00 07/20/23 04:00 07/20/23 04:00 07/20/23 04:00 07/20/23 04:00 07/20/23 05:00 Laboratory Results - last 24 hr 07/19/23 14:27: WBC 10.7, RBC 2.17 L, Hgb 6.7 L*, Hct 20.5 L*, MCV 94.2 H, MCH 30.9, MCHC 32.8, RDW 17.9 H, Plt Count 304, MPV 8.4, Neut % (Auto) 85.4 H, Lymph % (Auto) 8.3 L, [place] % (Auto) 5.6, Eos % (Auto) 0.3, Baso % (Auto) 0.4, Neut # (Auto) 9.2 H, Lymph # (Auto) 0.9, [place] # (Auto) 0.6, Eos # (Auto) 0.0, Baso # (Auto) 0.0, Total Counted 100, Neutrophils % (Manual) 92 H, Lymphocytes % (Manual) 6 L, Monocytes % (Manual) 2, Platelet Estimate Normal, RBC Morphology Not Reportable, Polychromasia 1+, Anisocytosis 1+, Sodium 140, Potassium 4.6, Chloride 109 H, Carbon Dioxide 18 L, Anion Gap 17.6 H, BUN 47 H, Creatinine 1.80 H, Estimated Creat Clear 34, Estimated GFR 36 L, Est GFR ( Amer) 44 L, Glucose 132 H, Calcium 9.2, Magnesium 1.9, Total Bilirubin 0.4, AST 43, ALT 37, Alkaline Phosphatase 100, Total Protein 6.3 D, Albumin 3.5, Globulin 2.8, Albumin/Globulin Ratio 1.3, Lipase 104 07/19/23 14:53: SARS-CoV-2 (PCR) Not detected, Influenza A Untype (PCR) Not dete cted, Influenza Type B (PCR) Not detected 07/19/23 15:24: Blood Type B Positive, Antibody Screen Negative, Crossmatch (AHG) See Detail 07/19/23 19:50: Stool Occult Blood Positive A 07/19/23 20:45: Hgb 7.0 L, Hct 20.9 L* 07/20/23 02:00: Hgb 8.0 L D, Hct 23.8 L 07/20/23 05:50: WBC 10.5, RBC 3.00 L D, Hgb 8.8 L, Hct 26.4 L, MCV 88.1, MCH 29.5, MCHC 33.5, RDW 19.1 H, Plt Count 274, MPV 8.0, Neut % (Auto) 78.6, Lymph % (Auto) 11.4, [place] % (Auto) 9.7 H, Eos % (Auto) 0.0 L, Baso % (Auto) 0.2, Neut # (Auto) 8.3 H, Lymph # (Auto) 1.2, [place] # (Auto) 1.0, Eos # (Auto) 0.0, Baso # (Auto) 0.0, Sodium 139, Potassium 4.7, Chloride 108 H, Carbon Dioxide 22, Anion Gap 13.7, BUN 53 H, Creatinine 2.00 H, Estimated Creat Clear 31, Estimated GFR 32 L, Est GFR ( Amer) 39 L, Glucose 104 H D, Calcium 8.7, Magnesium 1.9 I & O for Labs for Last 24 Hours: Intake & Output 07/17/23 07/18/23 07/19/23 07/20/23 11:59 11:59 11:59 11:59 Intake Total 782 / 782 Output Total 250 / 250 Balance 532 / 532 Weight 172 lb 0.004 oz Constitutional: no acute distress Respiratory: Absent respiratory distress Cardiac: Absent Tachycardia GI: Present soft Results Labs 07/20/23 05:50 07/20/23 05:50 Labs: Laboratory Results - last 24 hr 07/19/23 14:27: WBC 10.7, RBC 2.17 L, Hgb 6.7 L*, Hct 20.5 L*, MCV 94.2 H, MCH 30.9, MCHC 32.8, RDW 17.9 H, Plt Count 304, MPV 8.4, Neut % (Auto) 85.4 H, Lymph % (Auto) 8.3 L, [place] % (Auto) 5.6, Eos % (Auto) 0.3, Baso % (Auto) 0.4, Neut # (Auto) 9.2 H, Lymph # (Auto) 0.9, [place] # (Auto) 0.6, Eos # (Auto) 0.0, Baso # (Auto) 0.0, Total Counted 100, Neutrophils % (Manual) 92 H, Lymphocytes % (Manual) 6 L, Monocytes % (Manual) 2, Platelet Estimate Normal, RBC Morphology Not Reportable, Polychromasia 1+, Anisocytosis 1+, Sodium 140, Potassium 4.6, Chloride 109 H, Carbon Dioxide 18 L, Anion Gap 17.6 H, BUN 47 H, Creatinine 1.80 H, Estimated Creat Clear 34, Estimated GFR 36 L, Est GFR ( Amer) 44 L, Glucose 132 H, Calcium 9.2, Magnesium 1.9, Total Bilirubin 0.4, AST 43, ALT 37, Alkaline Phosphatase 100, Total Protein 6.3 D, Albumin 3.5, Globulin 2.8, Albumin/Globulin Ratio 1.3, Lipase 104 07/19/23 14:53: SARS-CoV-2 (PCR) Not detected, Influenza A Untype (PCR) Not detected, Influenza Type B (PCR) Not detected 07/19/23 15:24: Blood Type B Positive, Antibody Screen Negative, Crossmatch ([facility]) See Detail 07/19/23 19:50: Stool Occult Blood Positive A 07/19/23 20:45: Hgb 7.0 L, Hct 20.9 L* 07/20/23 02:00: Hgb 8.0 L D, Hct 23.8 L 07/20/23 05:50: WBC 10.5, RBC 3.00 L D, Hgb 8.8 L, Hct 26.4 L, MCV 88.1, MCH 29.5, MCHC 33.5, RDW 19.1 H, Plt Count 274, MPV 8.0, Neut % (Auto) 78.6, Lymph % (Auto) 11.4, [place] % (Auto) 9.7 H, Eos % (Auto) 0.0 L, Baso % (Auto) 0.2, Neut # (Auto) 8.3 H, Lymph # (Auto) 1.2, [place] # (Auto) 1.0, Eos # (Auto) 0.0, Baso # (Auto) 0.0, Sodium 139, Potassium 4.7, Chloride 108 H, Carbon Dioxide 22, Anion Gap 13.7, BUN 53 H, Creatinine 2.00 H, Estimated Creat Clear 31, Estimated GFR 32 L, Est GFR ( Amer) 39 L, Glucose 104 H D, Calcium 8.7, Magnesium 1.9 Assessment and Plan *Assessment and plan (1) Anemia: Status: Acute Qualifiers: Anemia type: iron deficiency Iron deficiency anemia type: chronic blood loss Qualified Code(s): D50.0 - Iron deficiency anemia secondary to blood loss (chronic) Category: Medical Code(s): D64.9 - Anemia, unspecified Plan: Hemoglobin 8.8 this morning (excellent response to 2 unit blood transfusion) (2) Melena: Status: Acute Category: Medical Code(s): K92.1 - Melena Plan: Proton pump inhibition Esophagogastroduodenoscopy this a.m. I have discussed the risks and benefits including, but not limited to: Bleeding Infection Damage to surrounding tissue Inherent risks of sedation The patient agrees to proceed.
--- NOTE | 2023-07-20 07:31 | P.PCN_ITS ---
Procedure: Date: 07/20/23 Patient Date of :: 1940 Procedure Performed:: Esophagogastroduodenoscopy with biopsy Indications:: Anemia Melena Performing Provider:: Ceferino Holloway MD Referring Provider:: . Sedation:: Monitored anesthesia care Procedure:: After informed consent was obtained the patient was taken to the endoscopy suite. Sedation ensued after the patient was transferred to the left lateral d ecubitus position. Pulse, blood pressure, and oxygen saturation were monitored throughout the procedure. The endoscope was advanced beyond the duodenal bulb. Retroflexion within the gastric lumen was accomplished. The gastroscope was carefully removed and the patient was transferred to recovery in stable condition. Please see findings and specimens below for detail. Findings:: Fairly large sliding hiatal hernia No obvious Vaibhav lesion Patchy linear inflammation (possible healing ulceration) distal esophagus Inflammation gastroesophageal junction Possible early/mild Parmar-type changes No sign of active/recent hemorrhage No large/complex ulceration Specimens:: Antral biopsy Recommendations:: Proton pump inhibition Consider colonoscopy in near future Consider repeat EGD at time of colonoscopy for reevaluation of distal esophagus/ GE junction Possible UGI/SBFT followed by capsule endoscopy in near future Complications:: No immediate Estimated blood obtained (mL): 1 Colonoscopy Component Colonoscopy Component Was a colonoscopy performed during today's procedure?: No
--- NOTE | 2023-07-20 07:41 | HMH.PHAINT1 ---
Pharmacy Intervention Comments: Home med list verified with external pharmacy list.
--- NOTE | 2023-07-20 08:01 | P.PNANES_ITS ---
[facility] Disclaimer: The information contained in this section may have been updated after the patient was seen, as this information can be updated by other users. Medical History Abnormal cardiac CT angiography Anticoagulant long-term use Aortic stenosis Aortic valve calcification Bilateral carotid bruits Cardiac murmur Claudication Coronary artery calcification Daytime somnolence Decreased stamina HTN (hypertension) Leg pain SOB (shortness of breath) Family History (Updated 07/19/23 @ 17:57 by Hannah Esposito, KEVIN) Other No significant family history Social History (Updated 07/19/23 @ 17:58 by Hannah Esposito, KEVIN) Smoking Status: Former smoker tobacco type: cigarettes packs per day: 1 second hand exposure: No alcohol intake: former substance use type: denies use current occupational status: retired Travel in the last 8 weeks: None household members: spouse housing: house current occupational exposures/hazards: No caffeine: Yes [facility] Anesthesia Checklist Patient Identification Patient Identification: Arm Band, Family ( & son) and Verbal (Name & ) Structural Data Admitted From: Inpatient Planned Operative Procedure/s: EGD Consent for Planned Operative Procedure(s) Verified: Yes Verified Documents: Surgical Consent and History and Physical NPO Status Verified Time NPO: 02:00 Chart Verification Results Verified: CBC, BMP, ECG and Chest Xray Additional verifications Patient : No Anesthesia Reactions: No Hx Blood Transfusions: Yes Cardiovascular Assessment Pulse Rhythm: Irregular Peripheral Edema: No Airway Assessment Mallampati Score:: Class II C-Spine Mobility Assessed: Yes (Limited extension) TMJ Mobility Assessed: Yes Dentition: Edentulous Neurological Assessment Level of Consciousness: Awake, Alert, Appropriate and Follows Commands Hx Seizures: No Numbness or tingling in extremities: No Anesthesia Plan Anesthesia Risk discussed: Yes Anesthesia Plan: Verified ASA Class: III Anesthesia Type: MAC
--- NOTE | 2023-07-20 08:02 | P.PNANES_ITS ---
[facility] Anesthesia Record Part I Anesthesia Record I Intake, IV Amount: 500 Hydration: Adequate Estimated blood loss (mL): 1 Urine output (mL): 0 Blood Pressure: 99/60 SaO2: 96 Pulse Rate: 85 Airway Patency: Patent Respiratory Rate: 16 Temperature: 97.6 F Patient is:: Drowsy, Nasal O2 (4L/min NC) and Stable Stable to PACU at:: 07:48
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
[2023-07-20] MEDS: LISINOPRIL 10 MG PO (08:40)
[2023-07-20] MEDS: PANTOPRAZOLE 40MG VIAL 40 MG IV ×2 (08:40→20:01)
--- NOTE | 2023-07-20 09:23 | CT_ITS ---
FINAL REPORT TECHNIQUE: Axial CT images were performed from the lung apices through the upper abdomen. Coronal and sagittal reformats were submitted. This study was performed with techniques to keep radiation doses as low as reasonably achievable (ALARA). Individualized dose reduction techniques using automated exposure control or adjustment of mA and/or kV according to the patient's size were employed. CLINICAL HISTORY: PNA COMPARISON: CTA chest 10/13/2018 FINDINGS: There is mediastinal adenopathy, mild, with some enlargement of nodes since the prior CT of 2019. There is a right subcarinal node that measures 24 mm on today's exam, was 21 mm in 2019. Severe left coronary artery calcifications are present. Aortic valve calcification is present as well. There are pleural effusions noted bilaterally, small on the right and moderate-sized on the left with mild left pleural thickening. There is left lower lobe and lingular atelectasis, with an adjacent 4.8 cm questionable mass immediately adjacent to the region of atelectasis. In the right lung base, there is an infiltrate that likely represents atelectasis versus pneumonia. There is a small pericardial effusion present, which has a higher density than expected, and may represent hemorrhage or neoplasm. A small amount of ascites is present in the upper abdomen. There is a 3.9 cm soft tissue density in the retrocrural soft tissues, as well as a 3.6 cm upper abdominal para-aortic density which are stable. There is new right pericaval adenopathy measuring 18 mm in size, not seen on the prior exam. There is a 13 mm lateral right renal mass also seen on the present examination, that may represent a hyperdense cyst. IMPRESSION: There are masses and adenopathy in the lower thorax and upper abdomen as described. These may represent neoplastic disease, and would suggest PET/CT for further evaluation. There is a questionable left lower lobe mass, 4.8 cm in size. There is also mild but worsening adenopathy. Pericardial effusion, with a higher density than expected, may represent hemorrhage or neoplasm. Reviewed, Interpreted and Dictated by Leo Wan III, MD Transcribed by Maddy Orellana Authenticated and . [facility]
[2023-07-20 09:50] LABS: Hematocrit 24.8 % (42.0-52.0)
[2023-07-20 09:52] LABS: Hemoglobin 8.4 g/dL (14.1-18.0)
[2023-07-20] MEDS: LEVOFLOXACIN/D5W 750 MG/150 ML 750 MG/150 ML PIGGYBACK 100 MG IV (10:18)
[2023-07-20 10:28] LABS: Procalcitonin 0.297 ng/mL (0.0-2.0)
--- NOTE | 2023-07-20 13:33 | HMH.OTEV ---
OT Inpatient Evaluation Rehab OT IP Evaluation Start: 07/20/23 10:03 Freq: ONCE Status: Active Protocol: Document 07/20/23 13:26 [email or web address] (Rec: 07/20/23 13:32 [facility] [id number]) Rehab OT IP Assessment Subjective History Pt oriented x 3 on arrival. Pt agreeable to engage in therapy evaluation. Pt admitted on 07/19/23 due to GI bleed and anemia. Patient is a 82-year-old female with past medical history of CAD hypertension atrial fibrillation on Xarelto who presents to the hospital due to dark-colored stools. She also had nausea vomiting. She has a history of hemorrhoidectomy in the past. Patient otherwise denied abdominal pain, diarrhea constipation dysuria fevers or chills. Patient was admitted for general surgery evaluation with possible endoscopy and further management. On evaluation patient was found to have hemoglobin 6.7, unknown baseline, last hemoglobin 2021 found to be 15.5 Subjective I am hoping to go home soon. Prior to being in the hosptial , pt lived at home with his . Pt claims normally he was independent with all ADLs and IADLs. Pt does not require any type of AE during functional transfers. Pt was also still driving. Objective Patient Orientation Person,Place,Birthday Right Upper Extremity Gross ROM WFL Left Upper Extremity Gross ROM WFL Bed Mobility bed mobility-scooting,bed mobility - supine/sit Assist Level Supervision/Stand by Transfer Training Sit/Stand Transfer Assist Level Supervision/Stand by Lower Body Dressing Ability Standby Assistance Performing Toilet Hygiene Ability Standby Assistance Overall Commode/Toilet Transfer Ability Standby Assistance Commode/Toilet Transfer Technique Sit to/from Ambulatory Rehab OT IP prob,goals,plan Problems Date of Evaluation: 07/20/23 Rehab Potential Rehab Potential Innapropriate for Skilled Therapy Discharge Plan OT Discharge Plan At this time, pt appears to be at his baseline with functional transfers and ADL independence. Pt can return home with once he is medically stable per physician . OT evaluation as needed. Eval Complexity Eval Charge Codes 78537 - Low Complexity PHYSICIAN CERTIFICATION: I certify the specified therapy services for Kamran Bernabe are required, authorized, and reviewed every 30 days.
--- NOTE | 2023-07-20 13:53 | HMH.PTEV ---
Physical Therapy Evaluation Rehab PT IP Evaluation Start: 07/20/23 10:03 Freq: ONCE Status: Active Protocol: Document 07/20/23 13:46 JC (Rec: 07/20/23 13:52 JC [id number]) Subjective/History History History Pt oriented x 3 on arrival. Pt agreeable to engage in therapy evaluation. Pt admitted on 07/19/23 due to GI bleed and anemia. Patient is a 82-year-old male with past medical history of CAD hypertension atrial fibrillation on Xarelto who presents to the hospital due to dark-colored stools. She also had nausea vomiting. He has a history of hemorrhoidectomy in the past. Patient otherwise denied abdominal pain, diarrhea constipation, dysuria, fevers or chills. Patient was admitted for general surgery evaluation with possible endoscopy and further management. On evaluation patient was found to have hemoglobin 6.7, unknown baseline, last hemoglobin 2021 found to be 15.5 Subjective Subjective Patient reports that he lives at home with his . Previously independent with all ADL's/IADL's, as well as ambulation. Patient reports that he is still driving. I just get a little weak after I 've been walking for a while. I'd like to go home soon. New diagnosis of cancer in past 12 No months? Rehab PT IP Eval Objective Appearance Patient Behavior Appropriate,Cooperative Patient Orientation Person,Place,Birthday Difficulty following instructions none Speech Pattern Clear,Appropriate Ambulation Patient Able to Ambulate Yes Ambulation Observation IP General Gait Pattern Observation No Deviations/Normal Ambulation Distance (feet) 100 Ambulation Assistive Device None Ambulation Ability Supervision/Stand by Balance Ability to Arise Able, uses arms to help Sitting Balance Steady, safe Standing Balance Narrow stance w/o support Dynamic Sitting Balance Ability Normal Dynamic Standing Balance Ability Normal Transfers Bed Transfer Ability Independent Sit to Stand Bed Transfer Ability Independent ROM All Extremities PT ROM Status WFL MMT All Extremities PT MMT WFL Rehab PT IP prob,goals,plan Problems Date of Evaluation: 07/20/23 Rehab Potential Rehab Potential Good Discharge Plan PT Discharge Plan PT suggests that patient is good to DC home with once found medically stable by . [place] Complexity Eval Charge Codes 06626 - High Complexity PHYSICIAN CERTIFICATION: I certify the specified therapy services for Kamran Marquis Florecita are required, authorized, and reviewed every 30 days.
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
--- NOTE | 2023-07-20 16:30 | ECG_ITS ---
APPROVED REPORT Exam: Resting ECG HR:88 bpm ECG Measurements Heart Rate 88 AXES QRSd 93 QRS 76 QT 386 T -35 QTc 431 Conclusion ATRIAL FIBRILLATION INCOMPLETE RIGHT BUNDLE BRANCH BLOCK [90+ ms QRS DURATION, TERMINAL R IN V1/V2, 40+ ms S IN I/aVL/V4/V5/V6] SEPTAL MYOCARDIAL INFARCTION , PROBABLY OLD [40+ ms Q WAVE IN V1/V2] ST DEPRESSION, CONSIDER SUBENDOCARDIAL INJURY [0.1+ mV ST DEPRESSION] ABNORMAL ECG UNCONFIRMED REPORT Electronically signed by : Lowell Dyer MD 07/20/2023 21:23:05
--- NOTE | 2023-07-20 17:00 | EXP.PN ---
Subjective *Date: 07/20/23 *Time: 17:00 Interval history: seen at bedside, did not have any complains today, s/p EGD, denied Abd pain, nausea vomiting Exam Data for Last 24 hours Vital signs and Labs for Last 24 Hours: Temp Pulse Resp BP Pulse Ox O2 Del Method O2 Flow Rate 98.2 F 103 H 18 101/58 L 98 Room Air 3 07/20/23 16:00 07/20/23 16:00 07/20/23 16:00 07/20/23 16:00 07/20/23 16:00 07/20/23 16:00 07/20/23 07:43 Laboratory Results - last 24 hr 07/19/23 15:24: Blood Type B Positive, Antibody Screen Negative, Crossmatch (AHG) See Detail 07/19/23 19:50: Stool Occult Blood Positive A 07/19/23 20:45: Hgb 7.0 L, Hct 20.9 L* 07/20/23 02:00: Hgb 8.0 L D, Hct 23.8 L 07/20/23 05:50: WBC 10.5, RBC 3.00 L D, Hgb 8.8 L, Hct 26.4 L, MCV 88.1, MCH 29.5, MCHC 33.5, RDW 19.1 H, Plt Count 274, MPV 8.0, Neut % (Auto) 78.6, Lymph % (Auto) 11.4, [place] % (Auto) 9.7 H, Eos % (Auto) 0.0 L, Baso % (Auto) 0.2, Neut # (Auto) 8.3 H, Lymph # (Auto) 1.2, [place] # (Auto) 1.0, Eos # (Auto) 0.0, Baso # (Auto) 0.0, Sodium 139, Potassium 4.7, Chloride 108 H, Carbon Dioxide 22, Anion Gap 13.7, BUN 53 H, Creatinine 2.00 H, Estimated Creat Clear 31, Estimated GFR 32 L, Est GFR ( Amer) 39 L, Glucose 104 H D, Calcium 8.7, Magnesium 1.9, Procalcitonin 0.297 07/20/23 08:44: Hgb 8.4 L, Hct 24.8 L I & O for Last 24 hours: Intake & Output 07/17/23 07/18/23 07/19/23 07/20/23 23:59 23:59 23:59 23:59 Intake Total 532 / 532 1385 / 1385 Output Total 650 / 650 Balance 532 / 532 735 / 735 Weight 78.018 kg 78.018 kg Constitutional Constitutional: no acute distress *Routine HEENT Exam Head: Present normocephalic Eye: Present EOMI and PERRL ENT: Present mucous membranes moist *Routine Neck Exam Neck: Present supple; Absent lymphadenopathy *Routine Respiratory Exam Respiratory: Present CTA bilaterally *Routine Cardiovascular Exam Cardiovascular: Present RRR *Routine Abdominal Exam Abdominal: Present soft and normoactive bowel sounds; Absent tenderness *Routine Extremities Exam Extremities: Absent cyanosis, clubbing or edema *Routine Skin Exam Skin: Present warm; Absent rash *Routine Neurological Exam Neurological: Present alert and oriented X3 Assessment and Plan *Assessment and plan (1) Melena: Status: Acute Category: Medical Code(s): K92.1 - Melena (2) Vomiting: Status: Acute Category: Medical Code(s): R11.10 - Vomiting, unspecified (3) Renal insufficiency: Status: Acute Category: Medical Code(s): N28.9 - Disorder of kidney and ureter, unspecified (4) HLD (hyperlipidemia): Status: Chronic Qualifiers: Hyperlipidemia type: mixed hyperlipidemia Qualified Code(s): E78.2 - Mixed hyperlipidemia Category: Medical Code(s): E78.5 - Hyperlipidemia, unspecified (5) PAD (peripheral artery disease): Status: Chronic Category: Medical Code(s): I73.9 - Peripheral vascular disease, unspecified (6) Atrial fibrillation: Status: Chronic Qualifiers: Atrial fibrillation type: chronic Qualified Code(s): I48.2 - Chronic atrial fibrillation Category: Medical Code(s): I48.91 - Unspecified atrial fibrillation (7) HTN (hypertension): Status: Chronic Qualifiers: Hypertension type: essential hypertension Qualified Code(s): I10 - Essential (primary) hypertension Category: Medical Code(s): I10 - Essential (primary) hypertension (8) Acute anemia: Status: Acute Category: Medical Code(s): D64.9 - Anemia, unspecified Plan patient is a 82-year-old female with past medical history of CAD hypertension atrial fibrillation on Xarelto who presents to the hospital due to dark-colored stools. She also had nausea vomiting. She has a history of hemorrhoidectomy in the past. Patient otherwise denied abdominal pain, diarrhea constipation dysuria fevers or chills. Patient was admitted for general surgery evaluation with possible endoscopy and further management. On evaluation patient was found to have hemoglobin 6.7, unknown baseline, last hemoglobin 2021 found to be 15.5. Assessment Acute anemia of blood loss GI bleed CKD stage III CAD Hypertension Hyperlipidemia Atrial fibrillation on Xarelto Plan Hold antiplatelets, anticoagulants Monitor H&H, s/p 2PRBC, monitor s/p EGD did show esophagitis with possible ulcer formation - continue IV PPI IV fluids Consult general surgery - following Check iron levels consult cardiology for Afib Monitor and replace electrolytes Hold home aspirin Plavix, Xarelto DVT prophylaxis-SCDs only
--- NOTE | 2023-07-20 18:20 | XR_ITS ---
PROCEDURE INFORMATION: Exam: XR Chest Exam date and time: 07/20/2023 6:46 PM Age: 82 years old Clinical indication: Shortness of breath; Additional info: SOB TECHNIQUE: Imaging protocol: Radiologic exam of the chest. Views: 1 view. COMPARISON: CT CHEST WO CON 07/20/2023 10:04 AM FINDINGS: Lungs: Atelectasis at the left lung base. Faint airspace disease at the right lung base. Pleural spaces: Left-sided pleural effusion. No pneumothorax. Heart/Mediastinum: Cardiomegaly. Bones/joints: Unremarkable. IMPRESSION: 1. Left-sided pleural effusion and left basilar atelectasis. 2. Faint right lung base airspace disease may represent pneumonia.
[2023-07-20 19:00] LABS: POC Glucose,Bedside 107 (70-110)
[2023-07-20 19:10] LABS: NT Pro Brain Natriuretic Pep. 23100 pg/mL (0-450)
--- NOTE | 2023-07-20 19:15 | PC.NURSE ---
When rounding on patient around 1800, pt. stated he felt weak, dizzy, and nauseous. He was diaphoretic and short of breath. His heart monitor showed a HR of 130 and O2 of 86. Dr. Hogan called and notified. 2L of O2 placed on patient. Dr. Hogan at bedside. Pt. denies chest pain. Dr. Hogan ordered a trop and BNP, and discontinued IV fluids. Continued to monitor patient closely. At 1855 critical trop results of 24.5 [place] [address] called to this nurse. Results called to Edison who instructed this nurse to call Dr. Medina. Dr. Medina paged and notified of patient condition and lab results. Stat H&H and EKG ordered. At 1925 H&H results and EKG results sent to Dr. Medina. Telephone orders for Bumex 4 mg IV once now and Metoprolol 5 mg IV once now. Dr. Medina coming in to evaluate patient. Report given to Karen Coates RN.
[2023-07-20 19:27] LABS: Hematocrit 26.6 % (42.0-52.0)
--- NOTE | 2023-07-20 19:48 | ECG_ITS ---
APPROVED REPORT Exam: Resting ECG HR:114 bpm ECG Measurements Heart Rate 114 AXES QRSd 86 QRS -34 QT 288 T -9 QTc 355 Conclusion ATRIAL FIBRILLATION WITH RAPID VENTRICULAR RESPONSE LEFT AXIS DEVIATION with late R wave progression Abnl ECG Electronically signed by : Lowell Dyer MD 07/21/2023 15:06:01
[2023-07-20] MEDS: BUMETANIDE 1MG/4ML VIAL 4 MG IV (20:00)
[2023-07-20] MEDS: METOPROLOL TARTRATE 5MG/5ML VIAL 5 MG IV ×2 (20:00→20:40)
[2023-07-20] MEDS: SODIUM CHLORIDE 0.9% 10ML VIAL 10 ML IV (20:01)
[2023-07-20] MEDS: ROSUVASTATIN 10 MG 1 EACH PO (20:01)
[2023-07-20 21:05] LABS: Hemoglobin 8.7 g/dL (14.1-18.0)
[2023-07-21] VITALS (7 sets, daily range): BP systolic 86–110; BP diastolic 51–65; PULSE 78–103; RESP 14–22; TEMP 36.4–36.8; O2SAT 93–100; BMI 25.7
--- NOTE | 2023-07-21 06:29 | PC.NURSE ---
Adam came to bedside to assess pt at 2029 - new order of 5mg metoprolol IVP ONCE, administered with no complications. patient has been controlled/uncontrolled AFIB t/o night. With exertion, patient has became increasingly short of air in the 80's (can tell a difference from the night before, compared to tonight) - applied 2LNC and maintain O2 >90%. patient has toileted frequently t/o shift, voiding and passing gas with blood smears each wipe. BA on for safety r/t soa and weakness.
--- NOTE | 2023-07-21 07:32 | CA_ITS ---
APPROVED REPORT EXAM: Comprehensive 2D, Doppler, and color-flow Echocardiogram Photographic Process Screen Maker: Migdalia Castro, RCS, RVS Ht: 5 ft 10 in Wt: 179lbs BSA: 1.99 BP: 102/35 mmHg Indications: Aortic stenosis, Afib, PAD, Murmurs 2D Dimensions IVSd 1.28 cm LVEF (Visual) 67.40 % PWd 1.00 cm LA Volume 201.50 mL LVDd 4.55 cm LA Volume Index 101.30 mL/m2 (M/F) 16-34 LVDs 2.85 cm EF AP4 45.70 % Aortic Root 3.03 cm GL Strain -11.3 % Left Atrium 6.24 cm RVID Base (AP4) 5.37 cm (M/F) 2.5-4.1 LVOT 2.08 cm (M/F) 1.5-2.5 M-Mode Dimensions RVDd 2.78 cm (0.9-2.6) LVDd 4.55 cm (3.5-5.7) Ao Diam 3.35 cm (2.0-3.7) LVDs 3.23 cm (3.5-5.7) IVSd 1.26 cm (0.6-1.1) PWd 1.18 cm (0.6-1.1) EF (Teich) 50.60% EPSs 0.75 cm FS 29.53% EDV (Teich) 84.90 mL TAPSE 1.66 (<1.7) ESV (Teich) 41.90 mL LV Diastology E Decel Time 144 (160-240 msec) E/A Ratio 3.71 MED E' 5.6 (>= 7 cm/sec) MED A' 7.10 cm/s E'/MED E' Ratio 16.98 (<= 14) LAT E' 9.0 (>= 10 cm/sec) LAT A' 3.60 cm/s E/LAT E' Ratio 10.57 (<= 14) Aortic Valve LVOT Max 63.0 (70-110 cm/s) SAUL Index 0.60 cm2/m2 LVOT VTI 11.23 cm AoV Peak [place]. 375.0 (50-130 cm/s) AO Peak GR. 42.90 mmHg AO Mean GR. 33.20 (<5 mmHg) AO VTI 70.1 (18-25 cm) SAUL (VTI) 0.54 (2.5-4.5 cm2) Mitral Valve MV E Max [place]. 95.0 (40-130 cm/s) MV A Velocity 26.0 (40-130 cm/s) E/A Ratio 3.71 MV Decel. Time 144 (160-240 ms) Tricuspid Valve TR P. Velocity 315.00 cm/s RAP Estimate 10.00 mmHg RVSP 49.80 mmHg Left Ventricle The left ventricle is normal size. The left ventricular systolic function is normal. The left ventricular ejection fraction is within the normal range. There is increased LV wall thickness. The septum is asynchronous. Grade 3 diastolic dysfunction is present. LVEF is 55%. Right Ventricle Right ventricle is severely dilated. Right ventricle is moderately hypokinetic. Atria Left atrium is severely dilated. Right atrium is severely dilated. There is no Doppler evidence of interatrial shunt. Aortic Valve The aortic valve is moderately thickened. Peak velocity 3.8 m/s. Mean AV gradient is 37 mmHg. Peak velocity 58 mmHg. SAUL is 0.6 cm2. DI=0.15. SVi < 35 ml/m2. Findings are consistent with paradoxical low-flow, low-gradient severe aortic stenosis. Trace aortic regurgitation. Mitral Valve The mitral valve leaflets are mildly thickened. No evidence of mitral valve stenosis. Mild mitral regurgitation. Tricuspid Valve The tricuspid valve leaflets are thin and pliable. Mild tricuspid regurgitation. RVSP is 40-45 mmHg. Pulmonic Valve The pulmonary valve is normal in structure. Mild pulmonic regurgitation. Great Vessels The aortic root is normal in size. The ascending aorta is normal in size. IVC is normal in size and collapses >50% with inspiration. Pericardium There is no pericardial effusion. Pleural effusion is present. Other Information Study Quality: Technically Difficult Conclusion Technically difficult study due to poor accoustic windows. Normal LV systolic function. Grade 3 diastolic dysfunction. Asynchronous septum. Severe RV dilation with moderate reduction in RV function. Paradoxical low-flow, low-gradient severe aortic stenosis (peak velocity 3.8 m/s. Mean AV gradient is 37 mmHg. Peak velocity 58 mmHg. SAUL is 0.6 cm2. DI=0.15. SVi < 35 ml/m2. Findings are consistent with paradoxical low-flow, low-gradient severe aortic stenosis). Mild TR, mild MR. Markedly elevated RVSP 40-45 mmHg. Interventional cardiology referral for evaluation of possible TAVR is recommended in the setting of paradoxical low-flow, low-gradient severe and presence of symptoms. Electronically signed by : Lana Philippe MD 07/23/2023 18:58:36
[2023-07-21 07:39] LABS: Basophils % 0.3 % (0.1-2.0); Eosinophils % 0.1 % (0.1-12.0); Hematocrit 25.3 % (42.0-52.0); Hemoglobin 8.7 g/dL (14.1-18.0); Lymphocytes # 0.9 K/mm3 (0.7-4.5); Lymphocytes % 6.8 % (10-50); Mean Corpuscular HGB Conc 34.5 g/dL (31.8-35.4); Mean Corpuscular Hemoglobin 31.7 pg (27.0-31.2); Mean Corpuscular Volume 91.9 fl (80-94); Mean Platelet Volume 8.7 fl (7.4-10.4); Monocytes # 1.4 K/mm3 (0.1-1.0); Monocytes % 10.8 % (1.7-9.3); Neutrophils # 10.9 K/mm3 (1.8-7.8); Platelet Count 278 K/mm3 (142-424); Red Blood Count 2.75 M/mm3 (4.60-6.20); Red Cell Distribution Width 20.3 % (11.5-17.5); White Blood Count 13.3 K/mm3 (4.8-10.8)
[2023-07-21 07:42] LABS: Anion Gap 15.5 mEq/L (5-15); Blood Urea Nitrogen 54 mg/dl (9-20); Carbon Dioxide 23 mmol/L (22.0-30.0); Chloride 105 mmol/L (98-107); Creatinine Clearance Estimated 28 mL/min (50-200); Estimated Glomerular Filt Rate 27 ml/min (>60); GFR (African American) 33 ML/MIN (>60); Glucose 100 mg/dl (74-100); Magnesium 1.8 mg/dl (1.6-2.3); Potassium 4.5 mmoL/L (3.5-5.1); Sodium 139 mmol/L (136-145)
--- NOTE | 2023-07-21 08:37 | P.CONPHA_ITS ---
Pharmacy Consult Date: 07/21/23 Time: 08:37 Referring provider: DR DE LA PAZ Reason for Consult:: VANCOMYCIN DOSING CONSULT Allergies Allergy/AdvReac Type Severity Reaction Status Date / Time No Known Allergies Allergy Verified 05/15/23 08:34 Home Medications Medication Instructions Recorded Confirmed Type clopidogrel 75 mg tablet 75 mg PO DAILY 07/19/23 07/19/23 History lisinopril 10 mg tablet 10 mg PO DAILY 07/19/23 07/19/23 History rivaroxaban 20 mg tablet (Xarelto) 20 mg PO QPMWITHMEAL 07/19/23 07/20/23 History rosuvastatin 10 mg tablet 10 mg PO HS 07/19/23 07/20/23 History New Prescriptions to Start Prescriptions: Height: 1.78 m Weight: 81.511 kg Laboratory Results:: Laboratory Results - last 24 hr 07/19/23 15:24: Crossmatch (AHG) See Detail 07/20/23 05:50: Procalcitonin 0.297 07/20/23 08:44: Hgb 8.4 L, Hct 24.8 L 07/20/23 18:35: Hgb 9.0 L, Hct 26.6 L, Troponin I 24.50 H, NT-Pro-B Natriuret Pep 36804 H 07/20/23 18:40: POC Glucose 107 07/20/23 20:55: Hgb 8.7 L, Hct 27.0 L 07/21/23 00:58: Troponin I 29.00 H 07/21/23 06:27: WBC 13.3 H D, RBC 2.75 L, Hgb 8.7 L, Hct 25.3 L, MCV 91.9, MCH 31.7 H, MCHC 34.5, RDW 20.3 H, Plt Count 278, MPV 8.7, Neut % (Auto) 82.0 H, Lymph % (Auto) 6.8 L, [place] % (Auto) 10.8 H, Eos % (Auto) 0.1, Baso % (Auto) 0.3, Neut # (Auto) 10.9 H, Lymph # (Auto) 0.9, [place] # (Auto) 1.4 H, Eos # (Auto) 0.0, Baso # (Auto) 0.0, Sodium 139, Potassium 4.5, Chloride 105, Carbon Dioxide 23, Anion Gap 15.5 H, BUN 54 H, Creatinine 2.30 H, Estimated Creat Clear 28, Estimated GFR 27 L, Est GFR ( Amer) 33 L, Glucose 100, Calcium 9.0, Magnesium 1.8 Medical History: Medical History (Updated 07/20/23 @ 07:08 by Ceferino Holloway MD) Abnormal cardiac CT angiography Anticoagulant long-term use Aortic stenosis Aortic valve calcification Bilateral carotid bruits Cardiac murmur Claudication Coronary artery calcification Daytime somnolence Decreased stamina HTN (hypertension) Leg pain SOB (shortness of breath) Assessment and Plan Assessment and plan all Dx Assessment and Plan for all problems:: Pharmacokinetic dosing service Objective: Age: 82 yo Serum creatinine: 2.3 mg/dL Height: 70.1 Inches Weight (kg): 81.511 Diagnosis: PNEUMONIA Assessment: IBW (kg): 73.23 Dosing wt(kg): 81.511 Estimated Creatinine clearance (ml/min): 25.2 CRCL method: Cockcroft and Gault using ibw(default). Drug selected: Vancomycin Vd (liters): 57.1 (factor used: 0.7 L/kg) [place] (hr-1): 0.025 Half life (hrs): 27.73 CLvanco=?? 1.428 L/hr Recommended dose: 1500 mg Interval: 48 hrs Infusion time (hrs): 2.0 Predicted peak (mcg/mL): 36.7 Predicted trough (mcg/mL): 11.62 Total body weight is being used for vancomycin dosing. Recommendations: Give Vancomycin 1500 mg q 48 hrs with an expected Cpeak of 36.7 mcg/ml and an expected Ctrough of 11.62 mcg/ml AUC 0-24 /JOJO Data: JOJO 0.5 mcg/mL:?? AUC/JOJO:? 1050.4 JOJO 1.0 mcg/mL:?? AUC/JOJO:? 525.2 --------- JOJO 1.5 mcg/mL:?? AUC/JOJO:? 350.1 JOJO 2.0 mcg/mL:?? AUC/JOJO:? 262.6 Thank you for the consult
--- NOTE | 2023-07-21 08:41 | EXP.SURG.PN ---
Subjective Narrative: The patient states that he feels fine this morning . He is without complaint. He states that he is probably going to have a heart cath today . Exam Data for Last 24 hours Vital signs and Labs for Last 24 Hours: Temp Pulse Resp BP Pulse Ox O2 Del Method O2 Flow Rate 98.2 F 90 22 88/55 L 93 L Nasal Cannula 2 07/21/23 04:00 07/21/23 04:00 07/21/23 04:00 07/21/23 04:00 07/21/23 04:00 07/21/23 06:23 07/21/23 06:23 Laboratory Results - last 24 hr 07/19/23 15:24: Crossmatch (AHG) See Detail 07/20/23 05:50: Procalcitonin 0.297 07/20/23 08:44: Hgb 8.4 L, Hct 24.8 L 07/20/23 18:35: Hgb 9.0 L, Hct 26.6 L, Troponin I 24.50 H, NT-Pro-B Natriuret Pep 79479 H 07/20/23 18:40: POC Glucose 107 07/20/23 20:55: Hgb 8.7 L, Hct 27.0 L 07/21/23 00:58: Troponin I 29.00 H 07/21/23 06:27: WBC 13.3 H D, RBC 2.75 L, Hgb 8.7 L, Hct 25.3 L, MCV 91.9, MCH 31.7 H, MCHC 34.5, RDW 20.3 H, Plt Count 278, MPV 8.7, Neut % (Auto) 82.0 H, Lymph % (Auto) 6.8 L, [place] % (Auto) 10.8 H, Eos % (Auto) 0.1, Baso % (Auto) 0.3, Neut # (Auto) 10.9 H, Lymph # (Auto) 0.9, [place] # (Auto) 1.4 H, Eos # (Auto) 0.0, Baso # (Auto) 0.0, Sodium 139, Potassium 4.5, Chloride 105, Carbon Dioxide 23, Anion Gap 15.5 H, BUN 54 H, Creatinine 2.30 H, Estimated Creat Clear 28, Estimated GFR 27 L, Est GFR ( Amer) 33 L, Glucose 100, Calcium 9.0, Magnesium 1.8 I & O for Last 24 hours: Intake & Output 07/18/23 07/19/23 07/20/23 07/21/23 11:59 11:59 11:59 11:59 Intake Total 1382 / 1382 625 / 625 Output Total 650 / 650 950 / 950 Balance 732 / 732 -325 / -325 Weight 172 lb 0.004 oz 179 lb 11.2 oz Constitutional Constitutional: no acute distress *Routine Respiratory Exam Respiratory: Absent respiratory distress *Routine Cardiovascular Exam Cardiovascular: Absent tachycardia Progress Note: A&P Assessment and plan (1) Melena: Status: Acute Assessment and plan: No evidence of acute bleeding per recent esophagogastroduodenoscopy. Inflammatory lesions with possible shallow linear ulceration noted in/around gastroesophageal junction and distal esophagus. Continue proton pump inhibition Likely repeat esophagogastroduodenoscopy in near future (at time of colonoscopy) (2) Acute anemia: Status: Acute Assessment and plan: Hemoglobin stable at 8.7 this a.m. No evidence of ongoing blood loss. Colonoscopy (and likely repeat EGD) in near future as outpatient Possible UGI/SBFT and capsule endoscopy (pending results of colonoscopy and repeat EGD)
[2023-07-21] MEDS: PANTOPRAZOLE 40MG VIAL 40 MG IV ×2 (08:48→21:00)
[2023-07-21] MEDS: SODIUM CHLORIDE 0.9% 10ML VIAL 10 ML IV (08:48)
--- NOTE | 2023-07-21 09:38 | P.PN_ITS ---
Subjective *Date: 07/21/23 *Time: 09:38 Interval history: seen at bedside, feels SOB but better than last night, s/p EGD, denied Abd pain, nausea vomiting Exam Data for Last 24 hours Vital signs and Labs for Last 24 Hours: Temp Pulse Resp BP Pulse Ox O2 Del Method O2 Flow Rate 97.7 F 86 18 86/51 L 98 Room Air 2 07/21/23 08:00 07/21/23 08:00 07/21/23 08:00 07/21/23 08:00 07/21/23 08:00 07/21/23 08:00 07/21/23 06:23 Laboratory Results - last 24 hr 07/19/23 15:24: Crossmatch (AHG) See Detail 07/20/23 05:50: Procalcitonin 0.297 07/20/23 08:44: Hgb 8.4 L, Hct 24.8 L 07/20/23 18:35: Hgb 9.0 L, Hct 26.6 L, Troponin I 24.50 H, NT-Pro-B Natriuret Pep 25520 H 07/20/23 18:40: POC Glucose 107 07/20/23 20:55: Hgb 8.7 L, Hct 27.0 L 07/21/23 00:58: Troponin I 29.00 H 07/21/23 06:27: WBC 13.3 H D, RBC 2.75 L, Hgb 8.7 L, Hct 25.3 L, MCV 91.9, MCH 31.7 H, MCHC 34.5, RDW 20.3 H, Plt Count 278, MPV 8.7, Neut % (Auto) 82.0 H, Lymph % (Auto) 6.8 L, [place] % (Auto) 10.8 H, Eos % (Auto) 0.1, Baso % (Auto) 0.3, Neut # (Auto) 10.9 H, Lymph # (Auto) 0.9, [place] # (Auto) 1.4 H, Eos # (Auto) 0.0, Baso # (Auto) 0.0, Sodium 139, Potassium 4.5, Chloride 105, Carbon Dioxide 23, Anion Gap 15.5 H, BUN 54 H, Creatinine 2.30 H, Estimated Creat Clear 28, Estimated GFR 27 L, Est GFR ( Amer) 33 L, Glucose 100, Calcium 9.0, Magnesium 1.8 I & O for Last 24 hours: Intake & Output 07/18/23 07/19/23 07/20/23 07/21/23 23:59 23:59 23:59 23:59 Intake Total 532 / 532 1475 / 1475 Output Total 1200 / 1200 1100 / 1100 Balance 532 / 532 275 / 275 -1100 / -1100 Weight 78.018 kg 78.018 kg 81.511 kg Constitutional Constitutional: no acute distress *Routine HEENT Exam Head: Present normocephalic Eye: Present EOMI and PERRL ENT: Present mucous membranes moist *Routine Neck Exam Neck: Present supple; Absent lymphadenopathy *Routine Respiratory Exam Respiratory: Present CTA bilaterally *Routine Cardiovascular Exam Cardiovascular: Present RRR *Routine Abdominal Exam Abdominal: Present soft and normoactive bowel sounds; Absent tenderness *Routine Extremities Exam Extremities: Absent cyanosis, clubbing or edema *Routine Skin Exam Skin: Present warm; Absent rash *Routine Neurological Exam Neurological: Present alert and oriented X3 Assessment and Plan *Assessment and plan (1) Melena: Status: Acute Category: Medical Code(s): K92.1 - Melena (2) Vomiting: Status: Acute Category: Medical Code(s): R11.10 - Vomiting, unspecified (3) Renal insufficiency: Status: Acute Category: Medical Code(s): N28.9 - Disorder of kidney and ureter, unspecified (4) HLD (hyperlipidemia): Status: Chronic Qualifiers: Hyperlipidemia type: mixed hyperlipidemia Qualified Code(s): E78.2 - Mixed hyperlipidemia Category: Medical Code(s): E78.5 - Hyperlipidemia, unspecified (5) PAD (peripheral artery disease): Status: Chronic Category: Medical Code(s): I73.9 - Peripheral vascular disease, unspecified (6) Atrial fibrillation: Status: Chronic Qualifiers: Atrial fibrillation type: chronic Qualified Code(s): I48.2 - Chronic atrial fibrillation Category: Medical Code(s): I48.91 - Unspecified atrial fibrillation (7) HTN (hypertension): Status: Chronic Qualifiers: Hypertension type: essential hypertension Qualified Code(s): I10 - Essential (primary) hypertension Category: Medical Code(s): I10 - Essential (primary) hypertension (8) Acute anemia: Status: Acute Category: Medical Code(s): D64.9 - Anemia, unspecified Plan patient is a 82-year-old female with past medical history of CAD hypertension atrial fibrillation on Xarelto who presents to the hospital due to dark-colored stools. She also had nausea vomiting. She has a history of hemorrhoidectomy in the past. Patient otherwise denied abdominal pain, diarrhea constipation dysuria fevers or chills. Patient was admitted for general surgery evaluation with possible endoscopy and further management. On evaluation patient was found to have hemoglobin 6.7, unknown baseline, last hemoglobin 2021 found to be 15.5. Assessment Acute anemia of blood loss - stable GI bleed - improved Lung mass CKD stage III CAD Hypertension Hyperlipidemia Atrial fibrillation on Xarelto Plan Hold antiplatelets, anticoagulants Monitor H&H, s/p 2PRBC, monitor s/p EGD did show esophagitis with possible ulcer formation - continue IV PPI DC IV fluids, s/p Bumex continue on Vanc and Cefepime discussed lung mass with Patient and patient , needs oncology appointment as OP Consult general surgery - following, EGD, colonoscpy as OP consult cardiology for Afib and elevated troponin, CHF - await recs Monitor and replace electrolytes Hold home aspirin Plavix, Xarelto DVT prophylaxis-SCDs only
[2023-07-21 09:46] LABS: Hematocrit 24.3 % (42.0-52.0); Hemoglobin 8.7 g/dL (14.1-18.0)
--- NOTE | 2023-07-21 11:10 | P.CONCA_ITS ---
History of Present Illness History of Present Illness Consult date: 07/21/23 Requesting physician: Marci Hogan Consult reason: atrial fibrillation Chief complaint: blood in stool History of present illness: 82-year-old white male with past medical history of coronary artery disease, hypertension, hemorrhoidectomy and A-fib on Xarelto presented to hospital on 07/19 with complaint of dark-colored stools, nausea and vomiting. On evaluation patient was found to have a hemoglobin of 6.7 and was admitted for GI bleed and possible endoscopy. He underwent EGD yesterday which showed a fairly large sliding hiatal hernia and patchy linear inflammation in the distal esophagus and gastroesophageal junction with possible mild Parmar type changes. Cardiology was asked to evaluate for hx of afib and elevated troponins yesterday. Initial EKG shows A-fib at a rate of 88 with an incomplete right bundle branch block and a likely old septal myocardial infarct infarction with ST depression noted in leads V5 and V6. Troponin came back 24.5 increasing to 29. Creatinine today is 2.3. Hemoglobin stable at 8.7. No electrolyte abnormalities noted. Patient complains of shortness of breath today but denies chest pain, abdominal pain, nausea or vomiting. [facility] Disclaimer: The information contained in this section may have been updated after the patient was seen, as this information can be updated by other users. Medical History Abnormal cardiac CT angiography Anticoagulant long-term use Aortic stenosis Aortic valve calcification Bilateral carotid bruits Cardiac murmur Claudication Coronary artery calcification Daytime somnolence Decreased stamina HTN (hypertension) Leg pain SOB (shortness of breath) Family History (Updated 07/19/23 @ 17:57 by Hannah Esposito RN) Other No significant family history Social History (Updated 07/19/23 @ 17:58 by Hannah Esposito RN) Smoking Status: Former smoker tobacco type: cigarettes packs per day: 1 second hand exposure: No alcohol intake: former substance use type: denies use current occupational status: retired Travel in the last 8 weeks: None household members: spouse housing: house current occupational exposures/hazards: No caffeine: Yes Review of Systems Review of Systems Review of systems:: pertinent systems reviewed and negative unless documented below *Cardiovascular Cardiovascular: Reports dyspnea *Respiratory Respiratory: Reports dyspnea *Genitourinary Comments: Abdominal pain, nausea, vomiting Exam Data for Last 24 hours Vital signs and Labs for Last 24 Hours: Temp Pulse Resp BP Pulse Ox O2 Del Method O2 Flow Rate 97.7 F 86 18 86/51 L 98 Room Air 2 07/21/23 08:00 07/21/23 08:00 07/21/23 08:00 07/21/23 08:00 07/21/23 08:00 07/21/23 08:00 07/21/23 06:23 Laboratory Results - last 24 hr 07/19/23 15:24: Crossmatch (AHG) See Detail 07/20/23 18:35: Hgb 9.0 L, Hct 26.6 L, Troponin I 24.50 H, NT-Pro-B Natriuret Pep 01189 H 07/20/23 18:40: POC Glucose 107 07/20/23 20:55: Hgb 8.7 L, Hct 27.0 L 07/21/23 00:58: Troponin I 29.00 H 07/21/23 06:27: WBC 13.3 H D, RBC 2.75 L, Hgb 8.7 L, Hct 25.3 L, MCV 91.9, MCH 31.7 H, MCHC 34.5, RDW 20.3 H, Plt Count 278, MPV 8.7, Neut % (Auto) 82.0 H, Lymph % (Auto) 6.8 L, [place] % (Auto) 10.8 H, Eos % (Auto) 0.1, Baso % (Auto) 0.3, Neut # (Auto) 10.9 H, Lymph # (Auto) 0.9, [place] # (Auto) 1.4 H, Eos # (Auto) 0.0, Baso # (Auto) 0.0, Sodium 139, Potassium 4.5, Chloride 105, Carbon Dioxide 23, Anion Gap 15.5 H, BUN 54 H, Creatinine 2.30 H, Estimated Creat Clear 28, Estimated GFR 27 L, Est GFR ( Amer) 33 L, Glucose 100, Calcium 9.0, Magnesium 1.8 07/21/23 09:36: Hgb 8.7 L, Hct 24.3 L I & O for Last 24 hours: Intake & Output 07/18/23 07/19/23 07/20/23 07/21/23 23:59 23:59 23:59 23:59 Intake Total 532 / 532 1475 / 1475 Output Total 1200 / 1200 1100 / 1100 Balance 532 / 532 275 / 275 -1100 / -1100 Weight 172 lb 172 lb 0.004 oz 179 lb 11.2 oz Constitutional Constitutional: no acute distress *Routine Respiratory Exam Respiratory: Present CTA bilaterally and symmetric chest movement *Routine Cardiovascular Exam Cardiovascular: Present RRR, Normal S1 and Normal S2 *Routine Abdominal Exam Abdominal: Present soft and normoactive bowel sounds; Absent tenderness *Routine Extremities Exam Extremities: Present full ROM and normal capillary refill; Absent edema *Routine Skin Exam Skin: Present intact, dry and warm Detailed Neck Exam: Thyroids Thyroid: Absent bruit Meds Home Medications and Allergies Home Medications Medication Instructions Recorded Confirmed Type clopidogrel 75 mg tablet 75 mg PO DAILY 07/19/23 07/19/23 History lisinopril 10 mg tablet 10 mg PO DAILY 07/19/23 07/19/23 History rivaroxaban 20 mg tablet (Xarelto) 20 mg PO QPMWITHMEAL 07/19/23 07/20/23 H istory rosuvastatin 10 mg tablet 10 mg PO HS 07/19/23 07/20/23 History New Prescriptions to Start Prescriptions: Allergies Allergy/AdvReac Type Severity Reaction Status Date / Time No Known Allergies Allergy Verified 05/15/23 08:34 Assessment and Plan *Assessment and plan (1) Anemia: Status: Acute Qualifiers: Anemia type: iron deficiency Iron deficiency anemia type: chronic blood loss Qualified Code(s): D50.0 - Iron deficiency anemia secondary to blood loss (chronic) Category: Medical Code(s): D64.9 - Anemia, unspecified (2) Melena: Status: Acute Category: Medical Code(s): K92.1 - Melena (3) Atrial fibrillation: Status: Chronic Qualifiers: Atrial fibrillation type: chronic Qualified Code(s): I48.2 - Chronic atrial fibrillation Category: Medical Code(s): I48.91 - Unspecified atrial fibrillation (4) CAD (coronary artery disease): Status: Chronic Qualifiers: Associated angina: without angina Coronary Disease-Associated Artery/Lesion type: [place] artery [place] vs. transplanted heart: [place] heart Qualified Code(s): I25.10 - Atherosclerotic heart disease of [place] coronary artery without angina pectoris Category: Medical Code(s): I25.10 - Atherosclerotic heart disease of [place] coronary artery without angina pectoris (5) Myocardial injury: Status: Acute Category: Medical Code(s): I5A - Non-ischemic myocardial injury (non-traumatic) (6) Acute kidney injury superimposed on CKD: Status: Resolved Category: Medical Code(s): N17.9 - Acute kidney failure, unspecified; N18.9 - Chronic kidney disease, unspecified (7) Aortic stenosis: Status: Chronic Qualifiers: Cardiac valve disease etiology: etiology unspecified Qualified Code(s): I35.0 - Nonrheumatic aortic (valve) stenosis Category: Medical Code(s): I35.0 - Nonrheumatic aortic (valve) stenosis Plan Acute myocardial injury Coronary artery disease -Status post medical management heart cath 2018, normal Myoview 2020 -Initial troponin 24.5 trending up to 29 -EKG concerning for possible old infarct with ST depression noted in leads V5 and V6 -Continue rosuvastatin 10 mg p.o. daily. Severe aortic stenosis Acute on chronic right-sided heart failure -Preliminary echo report from 07/21/2023 shows normal LVEF with significant change in the right ventricle. The right ventricle is severely dilated and moderately dysfunctional. Biatrial enlargement severe aortic stenosis noted. -Chest x-ray from 07/20/2023 shows a left-sided pleural effusion and left bibasilar atelectasis with a faint right lung base airspace disease which may represent pneumonia -Given the severity of the aortic stenosis in combination with concern for worsening coronary artery disease and recent GI bleed cardiology recommends that we transfer patient to a higher level of care facility. -Will obtain CTA chest to rule out PE given severity of right ventricle dysfunction. -Patient was given Bumex 1 mg IV last night for diuresis, patient reports since then shortness of air has improved. Patient has diuresed over 1 L. -Continue Bumex 1 mg PO daily History of A-fibChadsvasc score 5 -Currently A-fib rate controlled in the 80s -Continue bisoprolol 5 mg p.o. for rate control -OAC currently on hold due to recent GI bleed. Patient might benefit from watchman's device. -Continue to hold OAC and blood thinners per Dr. Medina. Acute GI bleed Anemia Melena -Initial hemoglobin 6.7 -Status post transfusions hemoglobin is 8.7 and stable -Status post EGD yesterday see procedure note note -PPI per primary service Acute on chronic kidney disease -Worsening creatinine up to 2.3 CV summary 07/21/2023: Cardiology recommends patient be transferred to a higher level of care facility for further evaluation of severe aortic stenosis, acute on chronic right-sided heart failure, chronic A-fib with a concern for worsening coronary artery disease in the setting of a GI bleed. Patient needs to be evaluated for services that cannot be provided at this facility such as TAVR and/or Watchman's device given severity of aortic stenosis and current GI bleed. CTA chest pending.
[2023-07-21] MEDS: CEFEPIME HCL 1 GM in 0.9 % SODIUM CHLORIDE 50 ML IV ×2 (11:27→21:00)
--- NOTE | 2023-07-21 12:58 | EXP.EVENT.NO ---
Spoke to cardiology, patient has symptomatic aortic stenosis - needing TAVR, patient need transfer to , will initiate transfer. Informed patient who agrees.
[2023-07-21] MEDS: VANCOMYCIN/WATER FOR INJ (PEG) 1.5 GM/300 ML PIGGYBACK IV (12:59)
--- NOTE | 2023-07-21 13:19 | DIET.NUTRFU ---
Saw patient after lunch and he did not touch tray, he did agree to try strawberry ensure instead. He is stressed about current health situation
--- NOTE | 2023-07-21 17:46 | P.DS_ITS ---
General Admission date:: 07/19/23 HPI HPI HPI: This is an 82-year-old gentleman seen in consultation from the primary service for evaluation regarding gastrointestinal hemorrhage. He presented to the emergency department yesterday with intermittent nausea/vomiting. He describes 2 or 3 weeks of dark stool . No hematemesis. He does not currently report recent bright red blood per rectum. Initial hemoglobin 6.7 in emergency depart ment (now 8.8 after transfusion of 2 units packed red blood cells). Forwarded from admission H&P: patient is a 82-year-old female with past medical history of CAD hypertension atrial fibrillation on Xarelto who presents to the hospital due to dark-colored stools. She also had nausea vomiting. She has a history of hemorrhoidectomy in the past. Patient otherwise denied abdominal pain, diarrhea constipation dysuria fevers or chills. Patient was admitted for general surgery evaluation with possible endoscopy and further management. On evaluation patient was found to have hemoglobin 6.7, unknown baseline, last hemoglobin 2021 found to be 15.5 Hospital Course Hospital Course Hospital Course: patient is a 82-year-old female with past medical history of CAD hypertension atrial fibrillation on Xarelto who presents to the hospital due to dark-colored stools. She also had nausea vomiting. She has a history of hemorrhoidectomy in the past. Patient otherwise denied abdominal pain, diarrhea constipation dysuria fevers or chills. Patient was admitted for general surgery evaluation with possible endoscopy and further management. On evaluation patient was found to have hemoglobin 6.7, unknown baseline, last hemoglobin 2021 found to be 15.5. Assessment Acute anemia of blood loss - stable GI bleed - improved Aortic stenosis requiring TAVR Lung mass CKD stage III CAD Hypertension Hyperlipidemia Atrial fibrillation on Xarelto Transfer to Exam Data for Last 24 hours Vital signs and Labs for Last 24 Hours: Temp Pulse Resp BP Pulse Ox O2 Del Method O2 Flow Rate 97.5 F L 85 18 93/58 L 98 Nasal Cannula 2 07/21/23 16:00 07/21/23 16:00 07/21/23 16:00 07/21/23 16:00 07/21/23 16:00 07/21/23 16:00 07/21/23 16:00 Laboratory Results - last 24 hr 07/20/23 18:35: Hgb 9.0 L, Hct 26.6 L, Troponin I 24.50 H, NT-Pro-B Natriuret Pep 11561 H 07/20/23 18:40: POC Glucose 107 07/20/23 20:55: Hgb 8.7 L, Hct 27.0 L 07/21/23 00:58: Troponin I 29.00 H 07/21/23 06:27: WBC 13.3 H D, RBC 2.75 L, Hgb 8.7 L, Hct 25.3 L, MCV 91.9, MCH 31.7 H, MCHC 34.5, RDW 20.3 H, Plt Count 278, MPV 8.7, Neut % (Auto) 82.0 H, Lymph % (Auto) 6.8 L, [place] % (Auto) 10.8 H, Eos % (Auto) 0.1, Baso % (Auto) 0.3, Neut # (Auto) 10.9 H, Lymph # (Auto) 0.9, [place] # (Auto) 1.4 H, Eos # (Auto) 0.0, Baso # (Auto) 0.0, Sodium 139, Potassium 4.5, Chloride 105, Carbon Dioxide 23, Anion Gap 15.5 H, BUN 54 H, Creatinine 2.30 H, Estimated Creat Clear 28, Estimated GFR 27 L, Est GFR ( Amer) 33 L, Glucose 100, Calcium 9.0, Magnesium 1.8 07/21/23 09:36: Hgb 8.7 L, Hct 24.3 L I & O for Last 24 hours: Intake & Output 07/18/23 07/19/23 07/20/23 07/21/23 23:59 23:59 23:59 23:59 Intake Total 532 / 532 1475 / 1475 420 / 420 Output Total 1200 / 1200 1100 / 1100 Balance 532 / 532 275 / 275 -680 / -680 Weight 78.018 kg 78.018 kg 81.511 kg Constitutional Constitutional: no acute distress *Routine Respiratory Exam Respiratory: Present CTA bilaterally and symmetric chest movement *Routine Cardiovascular Exam Cardiovascular: Present RRR, Normal S1 and Normal S2 *Routine Abdominal Exam Abdominal: Present soft and normoactive bowel sounds; Absent tenderness *Routine Extremities Exam Extremities: Present full ROM and normal capillary refill; Absent edema *Routine Skin Exam Skin: Present intact, dry and warm Detailed Neck Exam: Thyroids Thyroid: Absent bruit Results Data Completed and Pending Labs on day of discharge: Labs from last 24 hours 07/21/23 07/21/23 07/21/23 09:36 06:27 00:58 WBC 13.3 H D RBC 2.75 L Hgb 8.7 L 8.7 L Hct 24.3 L 25.3 L MCV 91.9 MCH 31.7 H MCHC 34.5 RDW 20.3 H Plt Count 278 MPV 8.7 Neut % (Auto) 82.0 H Lymph % (Auto) 6.8 L [place] % (Auto) 10.8 H Eos % (Auto) 0.1 Baso % (Auto) 0.3 Neut # (Auto) 10.9 H Lymph # (Auto) 0.9 [place] # (Auto) 1.4 H Eos # (Auto) 0.0 Baso # (Auto) 0.0 Sodium 139 Potassium 4.5 Chloride 105 Carbon Dioxide 23 Anion Gap 15.5 H BUN 54 H Creatinine 2.30 H Estimated Creat Clear 28 Estimated GFR 27 L Est GFR ( Amer) 33 L Glucose 100 POC Glucose Calcium 9.0 Magnesium 1.8 Troponin I 29.00 H NT-Pro-B Natriuret Pep 07/20/23 07/20/23 07/20/23 20:55 18:40 18:35 WBC RBC Hgb 8.7 L 9.0 L Hct 27.0 L 26.6 L MCV MCH MCHC RDW Plt Count MPV Neut % (Auto) Lymph % (Auto) [place] % (Auto) Eos % (Auto) Baso % (Auto) Neut # (Auto) Lymph # (Auto) [place] # (Auto) Eos # (Auto) Baso # (Auto) Sodium Potassium Chloride Carbon Dioxide Anion Gap BUN Creatinine Estimated Creat Clear Estimated GFR Est GFR ( Amer) Glucose POC Glucose 107 Calcium Magnesium Troponin I 24.50 H NT-Pro-B Natriuret Pep 78467 H DS: Diagnosis Discharge Diagnosis (1) Anemia: Status: Inactive Code(s): D64.9 - Anemia, unspecified Qualifiers: Anemia type: iron deficiency Iron deficiency anemia type: chronic blood loss Qualified Code(s): D50.0 - Iron deficiency anemia secondary to blood loss (chronic) (2) Melena: Status: Inactive Code(s): K92.1 - Melena (3) Atrial fibrillation: Status: Inactive Code(s): I48.91 - Unspecified atrial fibrillation Qualifiers: Atrial fibrillation type: chronic Qualified Code(s): I48.2 - Chronic atrial fibrillation (4) CAD (coronary artery disease): Status: Inactive Code(s): I25.10 - Atherosclerotic heart disease of [place] coronary artery without angina pectoris Qualifiers: Associated angina: without angina Coronary Disease-Associated Artery/Lesion type: [place] artery [place] vs. transplanted heart: [place] heart Qualified Code(s): I25.10 - Atherosclerotic heart disease of [place] coronary artery without angina pectoris (5) Myocardial injury: Status: Inactive Code(s): I5A - Non-ischemic myocardial injury (non-traumatic) (6) Acute kidney injury superimposed on CKD: Status: Resolved Code(s): N17.9 - Acute kidney failure, unspecified; N18.9 - Chronic kidney disease, unspecified (7) Aortic stenosis: Status: Inactive Code(s): I35.0 - Nonrheumatic aortic (valve) stenosis Qualifiers: Cardiac valve disease etiology: etiology unspecified Qualified Code(s): I35.0 - Nonrheumatic aortic (valve) stenosis Meds Home Medications and Allergies Home Medications Medication Instructions Recorded Confirmed Type clopidogrel 75 mg tablet 75 mg PO DAILY 07/21/23 07/21/23 History lisinopril 10 mg tablet 10 mg PO DAILY 07/21/23 07/21/23 History rivaroxaban 20 mg tablet (Xarelto) 20 mg PO DAILY 07/21/23 07/21/23 History rosuvastatin 10 mg tablet 10 mg PO DAILY 07/21/23 07/21/23 History New Prescriptions to Start Prescriptions: Allergies Allergy/AdvReac Type Severity Reaction Status Date / Time No Known Allergies Allergy Verified 05/15/23 08:34 Discharge Plan Disposition Patient Disposition: Xfer Short-Term Hosp Condition: Fair Discharge Order Discharge Orders: Discharge Order (Routine); Ordered 07/21/23 Ordered By: Marci Hogan Follow up Plan Follow up with: Jozef Medina MD [Staff Physician] - 2 weeks Ceferino Holloway MD [Staff Physician] - 1 week Prescriptions/Medication Reconciliation: No Action clopidogrel 75 mg tablet 75 mg PO DAILY Patient Comments: TAKE 1 TABLET BY MOUTH ONCE DAILY lisinopril 10 mg tablet 10 mg PO DAILY Patient Comments: TAKE 1 TABLET BY MOUTH ONCE DAILY rosuvastatin 10 mg tablet 10 mg PO DAILY Patient Comments: TAKE 1 TABLET BY MOUTH ONCE DAILY Xarelto 20 mg tablet 20 mg PO DAILY Patient Comments: TAKE 1 TABLET BY MOUTH ONCE DAILY FOR BLOOD THINNER Problem Reconciliation Problems Reviewed?: Yes Patient Discharge Instructions Patient Instructions: Anemia, Upper GI Endoscopy, DI for Vomiting -- Adult, DI for Gastrointestinal Bleeding Providers Primary Care Provider: Lowell Dyer Provider: Marci Hogan Attending Provider: Marci Hogan
--- NOTE | 2023-07-21 18:05 | PC.NURSE ---
called report to beck haile at . notified pts son of pts dc. bed available at [facility], 8th floor, [place] [address], room 136. report number [phone]
--- NOTE | 2023-07-21 18:26 | PC.NURSE ---
VO to wean vapotherm; rt unable to wean this shift. attempted to get pt up to chair, pt sat on side of bed unable to stand pt stated, my legs are weak and cramping, i cant stand . pts o2 dropped to 79% while sitting on side of bed, pt had some labored breathing. assisted pt back in bed. made dr gonzales aware of poss pt/ot eval and unable to wean o2 at this time. pt has rested on and off, alert and oriented. cb within reach.
--- NOTE | 2023-07-21 19:16 | PC.NURSE ---
Addendum entered by Greta King RN 07/21/23 19:39: notified ems of transport, lease picker time may be an hr or longer Original Note: called ems for transport with no answer, will try again
--- NOTE | 2023-07-21 19:28 | PC.NURSE ---
unable to print discharge packet, notified md. asked this nurse to notify charge nurse; rosaura lomeli notified.
[2023-07-21 21:01] LABS: Hematocrit 22.8 % (42.0-52.0); Hemoglobin 8.6 g/dL (14.1-18.0)
--- NOTE | 2023-07-21 23:12 | PC.NURSE ---
Patient left facility via stretcher at 2100 for [facility]. Report called. EMT given report via keno writer/runner with a voice of understanding. Patient stable upon discharge.
== END 2023-07-21 21:00 | disposition short-term general hospital (02) | DRG 369 ==
LOC: ER 16:04 → 2ND 17:36
PROVIDERS: Nurse Practitioner Family; Surgery; Admitting Provider Internal Medicine; Emergency Provider Emergency Medicine; PCP Internal Medicine Adolescent Medicine; Visit Provider Internal Medicine
PROC: 0DJ08ZZ Inspection of Upper Intestinal Tract, Via Natural or Artificial Opening Endoscopic (ICD-10-PCS; CPT 43235; principal; 2023-07-20 07:05)
DX: K20.91 Esophagitis, unspecified with bleeding (principal); D62 Acute posthemorrhagic anemia; I48.20 Chronic atrial fibrillation, unspecified; N17.9 Acute kidney failure, unspecified; I13.0 Hypertensive heart and chronic kidney disease with heart failure and stage 1 through stage 4 chronic kidney disease, or unspecified chronic kidney disease; I5A Non-ischemic myocardial injury (non-traumatic); E78.2 Mixed hyperlipidemia; I73.9 Peripheral vascular disease, unspecified; D50.0 Iron deficiency anemia secondary to blood loss (chronic); N18.30 Chronic kidney disease, stage 3 unspecified; Z79.01 Long term (current) use of anticoagulants; I50.813 Acute on chronic right heart failure
CPT/HCPCS: 43239; 36415; 71045; 71250; 80048; 80053; 82272; 82962; 83690; 83735; 83880; 84145; 84484; 85007; 85014; 85018; 85025; 86850; 87636; 88305; 93005; 93306; 97163; 97165; G0328; J0692; J1956; P9016

== ENCOUNTER 2023-07-29 23:45 | Emergency (ER) | payer MEDICARE, OTHER, SELFPAY ==
--- NOTE | 2023-07-29 23:45 | CT_ITS ---
PROCEDURE INFORMATION: Exam: CTA Head With Contrast, Arteriography Exam date and time: 07/29/2023 11:54 PM Age: 82 years old Clinical indication: Stroke-like symptoms; Altered mental status/memory loss; Additional info: Stroke, aphasia, right flaccid TECHNIQUE: Imaging protocol: Computed tomographic angiography of the head with contrast. Exam focused on the arteries. 3D rendering (Not supervised by radiologist): MIP and/or 3D reconstructed images were created by the technologist. Radiation optimization: All CT scans at this facility use at least one of these dose optimization techniques: automated exposure control; mA and/or kV adjustment per patient size (includes targeted exams where dose is matched to clinical indication); or iterative reconstruction. Contrast material: [id number]; Contrast volume: 100 ml; Contrast route: INTRAVENOUS (IV); COMPARISON: CT HEAD/BRAIN WO CON 07/29/2023 11:49 PM FINDINGS: ANTERIOR CIRCULATION: Right internal carotid artery: Atherosclerotic changes and mild stenoses are visualized of the right internal carotid artery. Right middle cerebral artery: No occlusion or significant stenosis. No aneurysm. 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 No occlusion. No visualized aneurysm. Left internal carotid artery: Severely decreased flow and occlusion are visualized involving petrous and proximal cavernous segments of the left internal carotid artery. Severely decreased flow is also noted within the petrous segment, with improved flow more distally. Mild stenoses are visualized of the cavernous segment, with atherosclerotic changes. Left middle cerebral artery: No occlusion or significant stenosis. No aneurysm. Left anterior cerebral artery: No occlusion or significant stenosis. No aneurysm. POSTERIOR CIRCULATION: Right vertebral artery: No occlusion or significant stenosis. No aneurysm. Left vertebral artery: No occlusion or significant stenosis. No aneurysm. Basilar artery: Mild stenosis of the distal basilar artery. No occlusion. No visualized aneurysm. Right posterior cerebral artery: No occlusion or significant stenosis. No aneurysm. Left posterior cerebral artery: There is incomplete visualization of a P2 segment the left [place] M[place], concerning for occlusion. A focal area of nonvisualized flow is also visualized involving a P3 segment, consistent with occlusion. Transverse sinuses: Right transverse venous sinus is incompletely visualized, which is likely developmental or due to thrombosis. 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 Brain: Hypodensity is again seen within the left posterior temporal and occipital regions, concerning for acute or subacute infarction. Encephalomalacia is also noted within the left occipital lobe. Refer to the head CT report from the same day. Cerebral ventricles: Moderate ventriculomegaly visualized. No pressure hydrocephalus is considered. Bones/joints: No acute fracture. Soft tissues: Unremarkable. IMPRESSION: 1. There is incomplete visualization of a P2 segment the left [place], concerning for occlusion. A focal area of nonvisualized flow is also visualized involving a P3 segment, consistent with occlusion. 2. Severely decreased flow and occlusion are visualized involving petrous and proximal cavernous segments of the left internal carotid artery. Severely decreased flow is also noted within the petrous segment, with improved flow more distally. Mild stenoses are visualized of the cavernous segment, with atherosclerotic changes. 3. Right transverse venous sinus is incompletely visualized, which is likely developmental or due to thrombosis. 4. Mild stenosis of the distal basilar artery. 5. Hypodensity is again seen within the left posterior temporal and occipital regions, concerning for acute or subacute infarction. Encephalomalacia is also noted within the left occipital lobe. Correlation with MRI recommended, as clinically indicated. 6. Additional findings described above.
--- NOTE | 2023-07-29 23:45 | CT_ITS ---
PROCEDURE INFORMATION: Exam: CTA Neck With Contrast Exam date and time: 07/29/2023 11:54 PM Age: 82 years old Clinical indication: Stroke-like symptoms; Altered mental status/memory loss; Additional info: Stroke, aphasia, right flaccid TECHNIQUE: Imaging protocol: Computed tomographic angiography of the neck with contrast. Exam focused on the cervical segments of the vasculature. 3D rendering (Not supervised by radiologist): MIP and/or 3D reconstructed images were created by the technologist. Radiation optimization: All CT scans at this facility use at least one of these dose optimization techniques: automated exposure control; mA and/or kV adjustment per patient size (includes targeted exams where dose is matched to clinical indication); or iterative reconstruction. Contrast material: [id number]; Contrast volume: 100 ml; Contrast route: INTRAVENOUS (IV); COMPARISON: CT ANGIO HEAD 07/29/2023 11:54 PM FINDINGS: Right common carotid artery: Artifact limits evaluation of the proximal right common carotid artery, without occlusion. Mild stenosis of the mid right common carotid artery, with noncalcified plaque. Right internal carotid artery: Severe stenosis is visualized of the proximal right internal carotid artery, with atherosclerosis and noncalcified plaque or thrombus. The degree of stenosis is 80%. Distal to this severe stenosis, less than 50% stenosis is visualized with atherosclerosis of the proximal right internal carotid artery. Right external carotid artery: No occlusion or significant stenosis. Left common carotid artery: There is tapering of flow within the left common carotid artery, with occlusion distally. This is concerning for dissection. Left internal carotid artery: Occlusion is identified of the left internal carotid artery. Atherosclerosis is identified proximally. Left external carotid artery: There is occlusion of the proximal left external carotid artery. Reconstitution of flow is seen more distally. Right vertebral artery: Moderate to severe stenosis of the V1 segment of the right vertebral artery, with atherosclerosis. A dominant right vertebral artery is visualized. Left vertebral artery: Left vertebral artery is asymmetrically smaller in caliber. Mild stenosis at the origin of the left vertebral artery. Right subclavian artery: Mild stenoses are identified of the right subclavian artery. Atherosclerotic changes. Left subclavian artery: Moderate stenosis of the proximal left subclavian artery, with atherosclerosis and noncalcified plaque. Mild stenosis is visualized of the left axillary artery. Aorta: Atherosclerosis of the aortic arch identified. Soft tissues: No significant soft tissue swelling. Bones/joints: Degenerative changes are visualized involving the cervical and upper thoracic spine. Varying degrees of cervical spinal canal stenoses and neural foraminal narrowing visualized. Artifact limits evaluation of the spinal canal. Lungs: Dependent nonspecific ground-glass density is seen within the left upper lobe of the lung. Pleural spaces: A moderate sized left pleural effusion is visualized. IMPRESSION: 1. There is tapering of flow within the left common carotid artery, with occlusion distally. This is concerning for dissection. 2. Occlusion is identified of the left internal carotid artery. 3. There is occlusion of the proximal left external carotid artery. Reconstitution of flow is seen more distally. 4. Severe stenosis is visualized of the proximal right internal carotid artery, with atherosclerosis and noncalcified plaque or thrombus. The degree of stenosis is 80%. Distal to this severe stenosis, less than 50% stenosis is visualized of the proximal right internal carotid artery. 5. Mild stenosis of the mid right common carotid artery. 6. Moderate to severe stenosis of the V1 segment of the right vertebral artery. A dominant right vertebral artery is visualized. 7. Mild stenosis at the origin of the left vertebral artery. 8. Moderate stenosis of the proximal left subclavian artery. Mild stenosis is visualized of the left axillary artery. 9. Mild stenoses are identified of the right subclavian artery. 10. A moderate sized left pleural effusion is visualized. A follow-up chest CT is recommended. 11. Additional findings described above. COMMENTS: THIS REPORT CONTAINS FINDINGS THAT MAY BE CRITICAL TO PATIENT CARE. The exam findings were verbally communicated by me to Lg Austin via telephone conference at 12:52 AM EST on 07/30/2023. The findings were acknowledged and understood. REFERENCES: NASCET CRITERIA. The degree of stenosis in the cervical segment of the internal carotid artery is based on NASCET criteria. Normal is no stenosis. Mild is less than 50% stenosis. Moderate is 50-69% stenosis. Severe is 70% to 99% stenosis. Total occlusion is no detectable patent lumen.
[2023-07-29 23:46] VITALS: BP 119/52; PULSE 78; RESP 19; TEMP 36.6; O2SAT 92; BMI 25.1
--- NOTE | 2023-07-29 23:46 | CT_ITS ---
PROCEDURE INFORMATION: Exam: CT Head Without Contrast Exam date and time: 07/29/2023 11:49 PM Age: 82 years old Clinical indication: Stroke-like symptoms; Altered mental status/memory loss; RT upper extremity weakness TECHNIQUE: Imaging protocol: Computed tomography of the head without contrast. Radiation optimization: All CT scans at this facility use at least one of these dose optimization techniques: automated exposure control; mA and/or kV adjustment per patient size (includes targeted exams where dose is matched to clinical indication); or iterative reconstruction. Other technique: STROKE PROTOCOL was implemented. COMPARISON: CT HEAD/BRAIN WO CON 03/16/2021 2:24 PM FINDINGS: Brain: Hypodensity with loss of gary-white differentiation is visualized involving the left posterior temporal and occipital lobes concerning for acute or subacute infarction. Encephalomalacia is also visualized within the left occipital lobe, consistent with an old infarct. No acute intracranial hemorrhage is visualized. There are scattered foci/areas of white matter hypodensity, likely representing small vessel ischemic disease. The acuity of the white matter disease is indeterminate. There is no midline shift. Cerebral ventricles: Moderate ventriculomegaly is visualized, with mild progression compared to the previous exam. The ventricles are dilated out of proportion to the mild sulcal atrophy, and normal pressure hydrocephalus is considered. Paranasal sinuses: Visualized sinuses are unremarkable. No fluid levels. Mastoid air cells: No mastoid effusion. Orbital cavities: Bilateral orbital lens implants. Bones/joints: The calvarium demonstrates no evidence for a depressed fracture. Soft tissues: Unremarkable. Vasculature: Intracranial atherosclerosis visualized. Other findings: Motion artifact limits this study. IMPRESSION: 1. Hypodensity with loss of gary-white differentiation is visualized involving the left posterior temporal and occipital lobes concerning for acute or subacute infarction. Encephalomalacia is also visualized within the left occipital lobe, consistent with an old infarct. Correlation with MRI recommended, as clinically indicated. 2. Moderate ventriculomegaly is visualized, with mild progression compared to the previous exam. The ventricles are dilated out of proportion to the mild sulcal atrophy, and normal pressure hydrocephalus is considered. 3. There are scattered foci/areas of white matter hypodensity, likely representing small vessel ischemic disease. 4. Additional findings described above. ASSESSMENT: ASPECTS ([place] Stroke Program Early CT Score) is 10.
--- OUTSIDE RECORDS SUMMARY | 2023-07-29 23:53 | XMS_ITS | Patient Health Record ---
Author Name Unknown Organization [facility] Address [address] [facility] [address] [place] [address] Care Team Providers Care Corporate Sales Trainer Name Role Phone Lowell Dyer Primary Care Provider Lowell Dyer Unavailable Unavailable ALLERGIES No Known Allergies RESULTS Component Value Reference Range Notes CBC (INCLUDES DIFF/PLT) (639 9) Reviewed date:10/31/2022 12:37:38 PM Interpretation: Performing Lab:[facility], [facility] [address], [facility] HospitalVkwnEQ[address] Yousif Stanton Notes/Report: NON-FASTING; NON-FASTING; NON-FASTING; NON-FASTING FASTING:NO FASTING: NO WHITE BLOOD CELL COUNT 5.0 3.8-10.8 Thousand/ uL RED BLOOD CELL COUNT 4.23 4.20-5.80 Million/uL HEMOGLOBIN 12.5 13.2-17.1 g/dL HEMATOCRIT 37.9 38.5-50.0 % MCV 89.6 80.0-100.0 fL MCH 29.6 27.0-33.0 pg MCHC 33.0 32.0-36.0 g/dL RDW 13.6 11.0-15.0 % PLATELET COUNT 205 140-400 Thousand/uL MPV 9.4 7.5-12.5 fL ABSOLUTE NEUTROPHILS 3310 1881-0444 cells/uL ABSOLUTE LYMPHOCYTES 981 730-2026 cells/uL ABSOLUTE MONOCYTES 685 200-950 cells/uL ABSOLUTE EOSINOPHILS 150 15-500 cells/uL ABSOLUTE BASOPHILS 30 0-200 cells/uL NEUTROPHILS 66.2 LYMPHOCYTES 16.5 MONOCYTES 13.7 EOSINOPHILS 3.0 BASOPHILS 0.6 COMPREHENSIVE METABOLIC PANE L (76802) Reviewed date:10/31/2022 12:37:38 PM Interpretation: Performing Lab:DYLAN [id number], [facility] CenterCwxwMD[address] Yousif Stanton Notes/Report: NON-FASTING; NON-FASTING; NON-FASTING; NON-FASTING [...] 18 10-35 U/L ALT 10 9-46 U/L LIPID PANEL, STANDARD (7600) Reviewed date:10/31/2022 12:37:38 PM Interpretation: Performing Lab:DYL[id number] [facility] [place], [facility] CenterHjoeON[address] Yousif Stanton Notes/Report: NON-FASTING; NON-FASTING; NON-FASTING; NON-FASTING [...] equation in the estimation of LDL-C. Jun COREA et al. SARAHI. 2013;310(59): 7920-7429 (http://ParStream.[employer]/faq/QZS272) CHOL/HDLC RATIO 2.6 <5.0 (calc) NON HDL CHOLESTEROL 82 <130 mg/dL (calc) For patients with diabetes plus 1 major ASCVD risk factor, treating to a non-HDL-C goal of <100 mg/dL (LDL-C of <70 mg/dL) is considered a therapeutic option. THYROID PANEL WITH TSH (7444 ) Reviewed date:10/31/2022 12:37:38 PM Interpretation: Performing Lab:[facility] [address] [facility], [facility] CenterSbpyQW[address] Yousif Stanton Notes/Report: NON-FASTING; NON-FASTING; NON-FASTING; NON-FASTING FASTING:NO FASTING: NO T3 UPTAKE 31 22-35 % T4 (THYROXINE), TOTAL 6.1 4.9-10.5 mcg/dL FREE T4 INDEX (T7) 1.9 1.4-3.8 TSH 5.34 0.40-4.50 mIU/L COMPREHENSIVE METABOLIC PANE L (16787) Reviewed date:03/23/2023 11:39:06 AM Interpretation: Performing Lab:DYLAN [address] [facility], [facility] CenterBttsWC[address] Yousif Stanton Notes/Report: NON-FASTING; NON-FASTING FASTING:YES FASTING: [...] (7600) Reviewed date:03/23/2023 11:39:06 AM Interpretation: Performing Lab:[facility], [facility] [address], [facility] HospitalXtywFV[address] Yousif Stanton Notes/Report: NON-FASTING; NON-FASTING FASTING:YES FASTING: [...] LDL-C. Jun SS et al. SARAHI. 2013;310(19): 0417-9028 (http://education.Icontrol [employer]/faq/GTH897) CHOL/HDLC RATIO 2.1 <5.0 (calc) NON HDL CHOLESTEROL 77 <130 mg/dL (calc) For patients with diabetes plus 1 major ASCVD risk factor, treating to a non-HDL-C goal of <100 mg/dL (LDL-C of <70 mg/dL) is considered a therapeutic option. REASON FOR REFERRAL No Information MEDICATIONS Medication SIG (Take, Route, Fr equency, Duration) Notes Start Date End Date Status Eliquis 2.5 mg 1 tab(s) orally 2 times a day Active rosuvastatin 20 mg 1 tab(s) orally once a day Active pantoprazole 40 mg 1 tab(s) orally once a day Active Lasix 20 mg 1 tab(s) orally once a day prn for 90 days Active lisinopril 5 mg 1 tab(s) orally once a day [...] Problem Chronic atrial fibrillation (I48.2) Active confirmed 421164129 Problem Chronic obstructive pulmonary disease, unspecified (J44.9) Active confirmed Chronic obstructive pulmonary disease (38061120) Problem Chronic kidney disease, unspecified (N18.9) Active confirmed Chronic kidney disease (519170618) Problem Hypertension, essential (I10) Active confirmed 81572284 Problem Chronic congestive heart failure, unspecified congestive heart failure type (I50.9) Active confirmed Heart failure (04596821) Problem Chronic fatigue (R53.82) Active confirmed 28907011 Problem Peripheral vascular disease (I73.9) Active confirmed 156120833 Problem Non-rheumatic mitral regurgitation (I34.0) Active confirmed 071053025 Problem Hyperlipidemia, unspecified hyperlipidemia type (E78.5) Active confirmed 11794885 Problem Atrial fibrillation by electrocardiogram (I48.91) Active confirmed Atrial fibrillation (06656562) Problem History of thyroid disease (Z86.39) Active confirmed 563566334 Problem Current use of anticoagulant therapy (Z79.01) Active confirmed 034686299 Problem Acute idiopathic gout of right foot (M10.071) Active confirmed 1842064844004810 Problem Chronic gout without tophus, unspecified cause, unspecified site (M1A.9XX0) Active confirmed 813239978 Problem Longstanding persistent atrial fibrillation (I48.11) Active confirmed 347174357 Problem Chronic atrial fibrillation, unspecified (I48.20) Active confirmed 414949338 Problem History of recent pneumonia (Z87.01) Active confirmed 594864516 Problem Atrial fibrillation, chronic (I48.20) Active confirmed Chronic atr ial fibrillation (disorder) (619988406) Problem Aortic valve disease (I35.9) Active confirmed 4979195 Problem Upper airway cough syndrome (R05.8) Active confirmed 72243246 VITAL SIGNS Heart Rate 80 /min 07/29/2023 Temperature 98.2 degrees Fahrenheit 07/29/2023 Blood pressure diastolic 58 mm Hg 07/29/2023 Height 5 ft 10 in in 07/29/2023 Blood pressure systolic 118 mm Hg 07/29/2023 Weight 170 lbs 07/29/2023 BMI 24.39 kg/m2 07/29/2023 Encounters Encounter Location Date Provider Diagnosis [facility] [address] [facility] [address] [place], [place] [address] 10/26/2022 Lowell Besson Peripheral vascular disease I73.9 ; History of thyroid disease Z86.39 ; Hyperlipidemia, unspecified hyperlipidemia type E78.5 and Longstanding persistent atrial fibrillation I48.11 [facility] [address] [facility] [address] [place] [address] 11/14/2022 Lowell Besson Hypertension, essent ial I10 and Chronic fatigue R53.82 [facility] [address] [facility] [address] [place] [address] 11/30/2022 Lowell Besson Hypertension, essent ial I10 [facility] [address] [facility] [address] [place] [address] 02/27/2023 Lowell Besson Chronic atrial fibrillation, unspecified I48.20 ; Current use of anticoagulant therapy Z79.01 and Upper airway cough syndrome R05.8 [facility] [address] [facility] [address] [place] [address] 03/20/2023 Lowell Besson Hyperlipidemia, unspecified hyperlipidemia type E78.5 ; Peripheral vascular disease I73.9 ; Immunization(s) administered Z23 ; Chronic obstructive pulmonary disease, unspecified J44.9 and Routine medical exam Z00.00 [facility] [address] [place] [address] 06/21/2023 Lowell Dyer Hypertension, essent ial I10 ; Chronic obstructive pulmonary disease, unspecified J44.9 and Longstanding persistent atrial fibrillation I48.11 [facility] [address] [place] [address] 07/29/2023 Lowell Dyer Aortic valve disease I35.9 ; Chronic atrial fibrillation, unspecified I48.20 ; Peripheral vascular disease I73.9 and Pulmonary nodules R91.8 [facility] [address] [place] [address] 08/26/2022 Lowell Dyer [facility] [address] [place] [address] 07/26/2023 Lowell Dyer [facility] [address] [facility] [place] [address] 07/26/2023 Lowell Dyer ASSESSMENTS Encounter Date Diagnosis Assessment Notes Treatment Notes Treatment Clinical Notes 07/29/2023 Chronic atrial fibrillation, unspecified (ICD-10 - I48.20) Good rate control, on appropriate anticoagulation at this point 07/29/2023 Aortic valve disease (ICD-10 - I35.9) Remains on low-dose Eliquis, reviewed instructions about stopping for lung procedure. Follow-up with cardiology arranged post lung biopsy 06/21/2023 Chronic obstructive pulmonary disease, unspecified (ICD-10 - J44.9) Discussed using Greg on a regular basis. 06/21/2023 Hypertension, essential (ICD-10 - I10) Blood pressure elevated but patient thinks at home it has been normal. I encouraged him to check his pressure twice weekly and bring back a log. 11/14/2022 Hypertension, essential (ICD-10 - I10) As [...] No changes in plan, continues anticoagulation therapy 10/26/2022 Peripheral vascular disease (ICD-10 - I73.9) - on Plavix and Xarelto 10/26/2022 History of thyroid disease (ICD-10 - Z86.39) - will check TSH 03/20/2023 Peripheral vascular disease (ICD-10 - I73.9) Continue pharmacotheapy as prescibed. Patient is doing really well at this time. No change indicated at this time. 03/20/2023 Hyperlipidemia, unspecified hyperlipidemia type (ICD-10 - E78.5) Patient complaint with pharmacotherapy, continue as prescribed. Will check labs in office today, I will review these personally. No medication changes at this time pending labs. 10/26/2022 Hyperlipidemia, unspecified hyperlipidemia type (ICD-10 - E78.5) - controlled with atorvastatin, will check lipid panel 02/27/2023 Upper airway cough syndrome (ICD-10 - [...] if this is helped his nighttime cough. 03/20/2023 Immunization(s) administered (ICD-10 - Z23) Flu and Prevnar 20 today 06/21/2023 Longstanding persistent atrial fibrillation (ICD-10 - I48.11) Patient's heart rate is very well-controlled today and almost regular. No changes in plan, remains compliant with Xarelto. 07/29/2023 Peripheral vascular disease (ICD-10 - I73.9) Overall doing well, extremities seem well-perfused 07/29/2023 Pulmonary nodules (ICD-10 - R91.8) Follow-up plan reviewed, discussed nature of procedure with patient. Discussed timing of biopsy, will make appointment with patient after this procedure has been done biopsy has been returned 03/20/2023 Chronic obstructive pulmonary disease, unspecified (ICD-10 - J44.9) Continue Breztri inhaler for night-time cough, given more samples in office today, will send an RX for this to his pharmacy. This has greatly improved his cough and wakings during the night. 10/26/2022 Longstanding persistent atrial fibrillation (ICD-10 - I48.11) - on Xarelto 03/20/2023 Routine medical exam (ICD-10 - Z00.00) [...] [address], [address], [place], [address], Insurance Providers Payer Name Payer Address Payer Phone Subscriber Number Group Number Insured Name Patient Relationship to Insured Coverage Start Date Coverage End Date [place] [address] [place] [address] [phone] [id number] Florecita Kamran Self - patient is the insured [employer] [address] [place] [address] [id number] Kamran Bernabe Self - patient is the [...] Teeth removed 06/15/2022 Hospitalization History Reason Date(Month/Year) [facility] - Blood levels 03/2021 Left femoral artery clot 12/2017
[2023-07-30] MEDS: 0.9 % SODIUM CHLORIDE 50 ML VIAL IV (00:02)
[2023-07-30] MEDS: SODIUM CHLORIDE 0.9% 10ML SYR (RAD ONLY) 10 ML IV (00:03)
[2023-07-30] MEDS: IOPAMIDOL-370 (76%);100ML BOTTLE 100 ML IV (00:03)
--- NOTE | 2023-07-30 00:05 | HMH.EDGENADL ---
Discharge Plan Disposition Patient Disposition: Xfer Other Prescriptions Prescriptions: No Action clopidogrel 75 mg tablet 75 mg PO DAILY Patient Comments: TAKE 1 TABLET BY MOUTH ONCE DAILY lisinopril 10 mg tablet 10 mg PO DAILY Patient Comments: TAKE 1 TABLET BY MOUTH ONCE DAILY rosuvastatin 10 mg tablet 10 mg PO DAILY Patient Comments: TAKE 1 TABLET BY MOUTH ONCE DAILY Xarelto 20 mg tablet 20 mg PO DAILY Patient Comments: TAKE 1 TABLET BY MOUTH ONCE DAILY FOR BLOOD THINNER Referrals Follow up/Referrals: Lowell Dyer MD [Primary Care Provider] - See instructions Clinical Impressions Clinical Impression: 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 Per EMS, patient was last known normal at 2200, 1.5 hours prior to arrival. EMS reports essentially normal vital signs en route. On arrival patient has dense right-sided paresis but present sensation. Completely aphasic. Right hemineglect noted. Related Data Home Medications Medication Instructions Recorded Confirmed clopidogrel 75 mg tablet 75 mg PO DAILY 07/21/23 07/21/23 lisinopril 10 mg tablet 10 mg PO DAILY 07/21/23 07/21/23 rivaroxaban 20 mg tablet (Xarelto) 20 mg PO DAILY 07/21/23 07/21/23 rosuvastatin 10 mg tablet 10 mg PO DAILY 07/21/23 07/21/23 Allergies Allergy/AdvReac Type Severity Reaction Status Date / Time No Known Allergies Allergy Verified 05/15/23 08:34 [facility] Disclaimer: The information contained in this section may have been updated after the patient was seen, as this information can be updated by other users. Medical History Abnormal cardiac CT angiography Anticoagulant long-term use Aortic stenosis Aortic valve calcification Bilateral carotid bruits Cardiac murmur Claudication Coronary artery calcification Daytime somnolence Decreased stamina HTN (hypertension) Leg pain SOB (shortness of breath) Family History (Updated 07/19/23 @ 17:57 by Hannah Esposito RN) Other No significant family history Social History (Updated 07/19/23 @ 17:58 by Hannah Esposito, RN) Smoking Status: Unknown if ever smoked second hand exposure: No alcohol intake: former substance use type: denies use current occupational status: retired Travel in the last 8 weeks: None household members: spouse housing: house current occupational exposures/hazards: No caffeine: Yes ROS Obtained: Yes unobtainable due to mental condition Physical Exam General General appearance: other (awake, mute) Comment: Eyes open, appears confused, minimally interactive Head Head exam: atraumatic and normocephalic Eye Eye exam: Present normal appearance, PERRL and other (Eyes do not pass the midline towards the right) ENT ENT exam: Present normal oropharynx and normal external ear exam Neck Neck exam: Present normal inspection and full ROM Chest Chest inspection: Present normal inspection and symmetric chest wall rise; Absent tenderness Respiratory Respiratory exam: Present normal lung sounds bilaterally; Absent respiratory distress Cardiovascular Cardiovascular exam: Present regular rate and normal rhythm Abdominal Exam Abdominal exam: Present soft; Absent distention, tenderness or guarding Extremities Exam Extremities exam: Present normal inspection; Absent edema or joint swelling Back Exam Back exam: Present normal inspection; Absent tenderness Neurological Exam Neurological exam: Present other (NIH 22: Dense right-sided weakness, upper greater than lower. Localizes pain in the right lower extremity. Right hemineglect. Complete aphasia. Unable to participate in exam. No obvious deficits noted in the left upper or left lower extremity.) Psychiatric Psychiatric exam: Present flat affect and other Skin Skin exam: Present warm, dry and normal color Lymphatic Lymphatic Findings: no adenopathy Medical Decision Making Medical Records Medical records reviewed: Yes I reviewed the patient's medical records. Ethan Inquiry Pt receiving controlled substance: No Ethan was queried for this patient: No Vital Signs: 07/29/23 23:46 07/30/23 01:50 Temperature 97.9 F 97.9 F Temperature Source Oral Oral Pulse Rate 76 Pulse Rate [Left Radial] 78 Respiratory Rate 19 21 Blood Pressure 120/56 L Blood Pressure [Right Arm] 119/52 L Blood Pressure Mean [Right Arm] 74 Blood Pressure Source Automatic Cuff Blood Pressure Source [Right Arm] Automatic Cuff Blood Pressure Position Supine Blood Pressure Position [Right Arm] Supine 02 Sat by Pulse Oximetry 92 L Oxygen Delivery Method Room Air Room Air Lab Data Lab results reviewed: Yes I reviewed the patient's lab results. Lab Results 07/29/23 23:59: WBC 6.0, RBC 3.16 L, Hgb 9.2 L, Hct 27.6 L, MCV 87.5, MCH 29.1, MCHC 33.3, RDW 16.6, Plt Count 347, MPV 7.6, Neut % (Auto) 62.4, Lymph % (Auto) 20.1, [place] % (Auto) 13.0 H, Eos % (Auto) 4.2, Baso % (Auto) 0.4, Neut # (Auto) 3.8, Lymph # (Auto) 1.2, [place] # (Auto) 0.8, Eos # (Auto) 0.3, Baso # (Auto) 0.0, PT 12.4, INR 1.16 H, APTT 25.8, Sodium 133 L, Potassium 3.4 L, Chloride 99, Carbon Dioxide 29, Anion Gap 8.4, BUN 15, Creatinine 1.50 H, Estimated Creat Clear 42, Estimated GFR 45 L, Est GFR ( Amer) 54 L, Glucose 117 H, Calcium 7.9 L, Total Bilirubin 0.6, AST 43, ALT 28, Alkaline Phosphatase 101, Troponin I 0.37 H, Total Protein 6.0 L, Albumin 3.1 L, Globulin 2.9, Albumin/Globulin Ratio 1.1 07/29/23 23:59 07/29/23 23:59 Orders (Tests/Meds): ED MEDICATIONS Discontinued Medications Generic Name Dose Route Start Last Admin Trade Name Freq PRN Reason Stop Dose Admin Lactated Ringer's 500 mls @ 999 mls/hr 07/30/23 00:35 07/30/23 00:36 Lactated Ringer's 1000 Ml Bag IV 07/30/23 01:05 999 mls/hr .Q31M ONE Administration Iopamidol 100 ml 07/30/23 00:01 07/30/23 00:03 Iopamidol-370 (76%);100ml Bottle IV 07/30/23 00:02 100 ml ONCE ONE Administration Sodium Chloride 50 ml 07/30/23 00:01 07/30/23 00:02 0.9 % Sodium Chloride 50 Ml Vial IV 07/30/23 00:02 50 ml ONCE ONE Administration Sodium Chloride 10 ml 07/30/23 00:01 07/30/23 00:03 Sodium Chloride 0.9% 10ml Syr (Rad Only) IV 07/30/23 00:02 10 ml ONCE ONE Administration ORDERS Category Date Time Status CT angio head Stat Cat Scan 07/29/23 23:[address] angio neck Stat Cat Scan 07/29/23 23:[address] head/brain wo con Stat Cat Scan 07/29/23 23:46 Completed CBC w/Auto Diff [Complete Blood Count Auto Diff] Stat Lab 07/29/23 23:59 Completed CMP [Comprehensive Metabolic Panel] Stat Lab 07/29/23 23:59 Completed INR [Prothrombin Time INR] Stat Lab 07/29/23 23:59 Completed PTT [Activated Partial Thrombo Time] Stat Lab 07/29/23 23:59 Completed Trop I [Troponin I] Stat Lab 07/29/23 23:59 Completed ECG initial [place] Routine Y 07/30/23 00:14 Completed Medical Decision Narrative: 82-year-old male, history of recent discharge from [facility] for acute stroke, on Eliquis, history of A-fib presents with stroke symptoms. History was obtained via conversation with EMS, patient is awake but unable to interact and provide any history.. On arrival, patient is afebrile, hemodynamically stable, satting properly on room air. Neuroexam significant for NIH of 22. GCS of 10, protecting airway. Differential includes but is not limited to acute hemorrhagic stroke, acute large vessel occlusion. Patient was taken immediately to the CT scanner for CT head, CTA head neck. On my depend interpretation of imaging, CT head shows no acute bleed, does show subacute stroke in the left occipital region. CTA head neck shows occlusion of the left common carotid with distal reconstitution, concern for thrombus in the left posterior renal artery. Patient's stroke symptoms could be explained by acute left [employer] stroke. On re-evaluation, patient remains mildly hypotensive for goals, initiated on 1 L fluid bolus. Images were reviewed by Dr. Freitas over the [employer] noemi. He noted the occlusion but did not state where or not the patient was accepted. I called the transfer center and spoke with neurology and with the transfer physician and I was told that the patient was not accepted. Thereafter, [facility] was immediately called and accepted the patient. Transfer was initiated to [facility] immediately. Thereafter, I received another call from the transfer center and spoke with Dr. Freitas over the phone. He had put in another Viz note accepting the patient, but given we had already been told by the transfer center that the patient was not accepted, and as such we did not look at the viz noemi again and we did not see that message. EMS was already in the building beginning the transfer to [facility], we discussed with the possibility that the patient can be rerouted to instead, however this was declined. initial laboratory workup independently interpreted by me and significant for no leukocytosis, normal fingerstick blood glucose at bedside, INR 1.16, no significant electrolyte derangements, creatinine 1.5. Given severity of stroke symptoms, intubation prior to transfer was considered, but deemed unnecessary due to GCS 10, alert, satting properly on room air, maintaining airway without difficulty. tPA was considered, but given recent stroke and use of Eliquis, patient is not a candidate. Given patient history, exam and workup, patient's presentation most likely represents acute left-sided ischemic stroke. Patient was transferred to [facility] prior to formal CT results. When the formal results returned, I called and had repeated discussions with the providers at [facility] to relay this information. Procedures Risk/Benefits of Procedure(s) Were Explained: Yes Critical Care Critical Care Time Critical Care Time: Yes Attestation: On 07/29/23, the high probability of a clinically significant, sudden or life threatening deterioration of the following system(s) neurology required my full and direct attention, intervention and personal management. The time I documented below is in addition to time spent performing reported procedures but includes the following listed in this critical care notation. Total Time Total Critical Care Time: 45
--- NOTE | 2023-07-30 00:10 | PC.NURSE ---
ED doctor on phone with [facility]
--- NOTE | 2023-07-30 00:13 | PC.NURSE ---
[facility] STATES THEY WILL NOT ACCEPT PATIENT
--- NOTE | 2023-07-30 00:14 | ECG_ITS ---
APPROVED REPORT Exam: Resting ECG HR:71 bpm ECG Measurements Heart Rate 71 AXES QRSd 96 QRS 74 QT 400 T -41 QTc 423 Conclusion ATRIAL FIBRILLATION SEPTAL MYOCARDIAL INFARCTION , PROBABLY OLD [40+ ms Q WAVE IN V1/V2] ST DEVIATION AND MODERATE T-WAVE ABNORMALITY, CONSIDER LATERAL ISCHEMIA [-0.1+ mV T-WAVE IN I/aVL/V5/V6] ST DEVIATION AND MODERATE T-WAVE ABNORMALITY, CONSIDER INFERIOR ISCHEMIA [-0.1+ mV T-WAVE IN II/aVF] ABNORMAL ECG UNCONFIRMED REPORT Electronically signed by : Lowell Dyer MD 08/01/2023 16:47:31
--- NOTE | 2023-07-30 00:16 | PC.NURSE ---
call to [facility], spoke with [facility] ED doctor on phone with stroke navigator
--- NOTE | 2023-07-30 00:17 | PC.NURSE ---
family at bedside
[2023-07-30 00:18] LABS: Basophils % 0.4 % (0.1-2.0); Eosinophils # 0.3 K/mm3 (0.0-0.4); Eosinophils % 4.2 % (0.1-12.0); Hematocrit 27.6 % (42.0-52.0); Hemoglobin 9.2 g/dL (14.1-18.0); Lymphocytes # 1.2 K/mm3 (0.7-4.5); Lymphocytes % 20.1 % (10-50); Mean Corpuscular HGB Conc 33.3 g/dL (31.8-35.4); Mean Corpuscular Hemoglobin 29.1 pg (27.0-31.2); Mean Corpuscular Volume 87.5 fl (80-94); Mean Platelet Volume 7.6 fl (7.4-10.4); Monocytes # 0.8 K/mm3 (0.1-1.0); Neutrophils # 3.8 K/mm3 (1.8-7.8); Neutrophils % 62.4 % (37.0-80.0); Platelet Count 347 K/mm3 (142-424); Red Blood Count 3.16 M/mm3 (4.60-6.20); Red Cell Distribution Width 16.6 % (11.5-17.5)
--- NOTE | 2023-07-30 00:18 | PC.NURSE ---
ON PHONE WITH [facility].
[2023-07-30 00:19] LABS: Chloride 99 mmol/L (98-107); Sodium 133 mmol/L (136-145)
[2023-07-30 00:20] LABS: Potassium 3.4 mmoL/L (3.5-5.1)
--- NOTE | 2023-07-30 00:21 | PC.NURSE ---
ED doctor on phone with [facility]
[2023-07-30 00:22] LABS: Alanine Aminotransferase 28 U/L (12-78); Alkaline Phosphatase 101 U/L (38-126); Aspartate Amino Transferase 43 U/L (17-59); Bilirubin,Total 0.6 mg/dl (0.2-1.3); Blood Urea Nitrogen 15 mg/dl (9-20); Creatinine Clearance Estimated 42 mL/min (50-200); Estimated Glomerular Filt Rate 45 ml/min (>60); GFR (African American) 54 ML/MIN (>60)
[2023-07-30 00:23] LABS: Albumin Level 3.1 g/dl (3.5-5.0); Albumin/Globulin Ratio 1.1 (1.1-1.8); Anion Gap 8.4 mEq/L (5-15); Calcium 7.9 mg/dl (8.4-10.2); Carbon Dioxide 29 mmol/L (22.0-30.0); Globulin 2.9 g/dL (1.3-3.2); Glucose 117 mg/dl (74-100)
--- NOTE | 2023-07-30 00:33 | PC.NURSE ---
EMS notified of transfer
[2023-07-30 00:34] LABS: Activated Partial Thrombo Time 25.8 seconds (22.8-30.6); INR 1.16 (0.9-1.1); Prothrombin Time 12.4 seconds (10.1-12.5)
[2023-07-30 00:36] LABS: Troponin I 0.37 ng/ml (0.00-0.034)
[2023-07-30] MEDS: LACTATED RINGERS 1000ML 500 ML 999 ML IV (00:36)
--- NOTE | 2023-07-30 00:36 | PC.NURSE ---
FAXED COPY OF DEMO SHEET WITH SSN ATTACHED TO [facility] AT [phone]
--- NOTE | 2023-07-30 00:50 | PC.NURSE ---
[facility] on phone with ED MD
--- NOTE | 2023-07-30 00:52 | PC.NURSE ---
STROKE NAVIGATOR UPDATED AT THIS TIME.
--- NOTE | 2023-07-30 00:57 | PC.NURSE ---
ON PHONE WITH [facility]. [facility] DISCUSSING CASE WITH DR BLANCA. PLAN TO SEND TO [facility] AT THIS TIME.
--- NOTE | 2023-07-30 01:05 | PC.NURSE ---
PT CARE GIVEN TO EMS. DISCHARGING NURSE GIVING REPORT AT THAT TIME.
--- NOTE | 2023-07-30 01:15 | PC.NURSE ---
PT FILMS WITH READINGS ATTACHED SENT AGAIN PER [facility].
[2023-07-30 01:50] VITALS: BP 120/56; PULSE 76; RESP 21; TEMP 36.6; O2SAT 94
== END 2023-07-30 01:05 | disposition other institution (70) ==
PROVIDERS: Emergency Provider Emergency Medicine; PCP Internal Medicine Adolescent Medicine
DX: I63.532 Cerebral infarction due to unspecified occlusion or stenosis of left posterior cerebral artery (principal); I65.22 Occlusion and stenosis of left carotid artery; I48.91 Unspecified atrial fibrillation; I10 Essential (primary) hypertension; R01.1 Cardiac murmur, unspecified; I35.0 Nonrheumatic aortic (valve) stenosis; Z79.01 Long term (current) use of anticoagulants
CPT/HCPCS: 70450; 70496; 70498; 80053; 84484; 85025; 85610; 85730; 93005; 99291; Q9967